=== PATIENT | male | born 1975 | race Caucasian/White ===

== ENCOUNTER → 2018-03-17 11:49 | Outpatient (CLI) | payer OTHER, SELFPAY ==
--- NOTE | 2018-03-17 12:10 | EKG12_ITS ---
Test Reason : PRE OP Blood Pressure : / mmHG Vent. Rate : 062 BPM Atrial Rate : 062 BPM P-R Int : 158 ms QRS Dur : 112 ms QT Int : 406 ms P-R-T Axes : 058 028 026 degrees QTc Int : 412 ms Normal sinus rhythm Normal ECG Confirmed by EDGAR NICHOLS MD ([id number]), production editor ANA MENDOZA ([id number]) on 03/20/2018 9:31:49 AM Referred By: Antonino Yancey Confirmed By:EDGAR NICHOLS MD
[2018-03-17 12:13] LABS: Hemoglobin 14.6 g/dl (13.0-16.5); Mean Corp Hgb Conc 34.8 g/gl (32-36); Mean Corpuscular Hgb 30.2 pg (27.0-32.0); Mean Platelet Vol. 10.7 fl (6.2-12.0); Platelet Count 228 K/mm3 (150-450); RBC Distribution Width SD 40.4 fl (35.1-43.9); Red Blood Count 4.83 M/mm3 (4.6-6.2); White Blood Count 6.2 K/mm3 (4.4-11.0)
[2018-03-17 12:14] LABS: Scan Indicated on CBC? Y/N NO
[2018-03-17 13:00] LABS: Anion Gap 8 (5-15); BUN 18 mg/dL (7-18); BUN/Creat Ratio 15.4 RATIO (10-20); Calcium,Total 8.8 mg/dL (8.5-10.1); Chloride 106 mmol/L (98-107); Creatinine, Serum 1.17 mg/dL (0.70-1.30); EST Glomerular Filtration Rate 73 mL/min (>60); Est Glom Filt Rate - Afr Amer 88 mL/min (>60); Glucose 163 mg/dL (74-106); Potassium 4.1 mmol/L (3.5-5.1); Sodium Level 142 mmol/L (136-145)
--- OUTSIDE RECORDS SUMMARY | 2018-05-21 23:47 | XMS RPT_ITS ---
:1975 Author Organization [facility] Care Team Providers Name Role Phone Antonino Yancey Attending Unavailable Antonino Yancey Referring Unavailable Berto Freitas Primary Care Unavailable PROBLEMS PROBLEMS DATE TYPE CONDITION / CODE ATTENDING STATUS SOURCE 03/17/2018 Unknown Z01.818 - Encounter Antonino Yancey Active [facility]ia for other [facility] preprocedural Hospital examination / Repository Z01.818(ICD-10) 03/17/2018 Unknown Z01.810 - Encounter Antonino Yancey Active Talia for preprocedural [facility] examination / Repository Z01.810(ICD-10) PROCEDURES PROCEDURES No Procedure Records FoundRESULTS RESULTS 12 LEAD ELECTROCARDIOGRAM Observed: 03/20/2018 Status: F Source: TALIA 9:32 AM [facility] REPOSITORY [facility] [address] [place] [address] 12 Lead EKG 03/17/18 1225 MR#: [id number] Acct: [id number] Name: AKIRA FERNÁNDEZ Rep #: [id number] : 1975 43 From: Cash Nichols MD Attending Dr: Antonino Yancey DO Status: REG CLI Ordering Dr: Antonino Yancey DO Date: 03/17/18 Location: LAB Sex: M C Admitted: Test Reason : PRE OP Blood Pressure : / mmHG Vent. Rate : 062 BPM Atrial Rate : 062 BPM P-R Int : 158 ms QRS Dur : 112 ms QT Int : 406 ms P-R-T Axes : 058 028 026 degrees QTc Int : 412 ms Normal sinus rhythm Normal ECG Confirmed by MAGDALENA LOPEZ, CASH ([id number]), editorial specialist ANA MENDOZA ([id number]) on 03/20/2018 9:31:49 AM Referred By: Antonino Yancey Confirmed By:CASH NICHOLS MD 03/20/18 0931 Date Cash Nichols MD CC: Berto Freitas MD; Antonino Yancey DO Signed CBC-COMPLETE BLOOD CNT Collected: 03/17/2018 Status: F Source: TALIA NO DIFF 11:[address] [facility] REPOSITORY TYPE CODE TESTS RESULT OUT OF RANGE REFERENCE UNITS LAB L100.1000 4.4-11.0 K/mm3 Normal WBC 6.2 LAB L100.1200 4.6-6.2 M/mm3 Normal RBC 4.83 LAB L100.1300 13.0-16.5 g/dl Normal HGB 14.6 LAB L100.1400 40-54 % Normal HCT 42.0 LAB L100.1500 80-94 fL Normal MCV 87.0 LAB L100.1600 27.0-32.0 pg Normal MCH 30.2 LAB L100.1700 32-36 g/gl Normal MCHC 34.8 LAB L100.1810 11.6-14.6 % Normal RDW CV 13.0 LAB L100.1820 35.1-43.9 fl Normal RDW SD 40.4 LAB L100.1900 150-450 K/mm3 Normal PLT 228 LAB L100.2000 6.2-12.0 fl Normal MPV 10.7 Performed By: #### L100.0500 #### [facility] [address] [place], [address] BASIC METABOLIC Collected: 03/17/2018 Status: F Source: TALIA PROFILE (BMP) 11:[address] [facility] REPOSITORY TYPE CODE TESTS RESULT OUT OF RANGE REFERENCE UNITS LAB L501.0100 74-106 mg/dL High GLU 163 Result Comment: Fasting Glucose result greater than or equal to 126 mg/dL suggests DIABETES MELLITUS per A.D.A. criteria. Please note revised GLUCOSE reference range effective 2017. LAB L501.1000 7-18 mg/dL Normal BUN 18 LAB L501.1100 0.70-1.30 mg/dL Normal CREAT,SERUM 1.17 Result Comment: The validity of the calculated GFR AND GFRAA in patients over 70 years has not been determined. Clinical correlation is essential. LAB L501.1110 >60 mL/min Normal EST GFR 73 Result Comment: Non- GFR Calc LAB L501.1115 >60 mL/min Normal EST GFR - AA 88 Result Comment: GFR Calc LAB L501.1300 10-20 RATIO Normal BUN/CRE 15.4 LAB L501.2200 8.5-10.1 mg/dL CA Normal 8.8 LAB L501.5300 136-145 mmol/L NA Normal 142 LAB L501.5600 3.5-5.1 mmol/L K Normal 4.1 LAB L501.5900 98-107 mmol/L CL Normal 106 LAB L501.6100 21.0-32.0 mmol/L Normal CO2 28.0 LAB L501.6200 5-15 Normal GAP 8 Performed By: #### L500.2500 #### [facility] [address], [address] ALLERGIES ALLERGIES No Allergies Records FoundENCOUNTERS ENCOUNTERS ADMIT/DISCHARGE ACCOUNT ADMITTING ENCOUNTER LOCATION SOURCE NUMBER CLASS 03/17/2018 [id number] Ambulatory [address] ing:LAB Repository PAYERS PAYERS ENCOUNTER GUARANTOR PAYER SUBSCRIBER SOURCE 03/17/2018 AKIRA Salguero [facility]:Karime VINCENTB: [facility] [address], Number: [id number] [address]: [id number] Repository Date:[id number] BOX ([address] [id number] ABRAM MELÉNDEZ [id number]: 03/17/2018 Secondary NOT GIVENKATHARINE [place] Insurance:SELF PAY [facility] Number: Effective Repository Date:2018-03-17
== END ==
LOC: LAB 11:53
PROVIDERS: Family Provider Family Medicine; PCP Family Medicine; Referring Provider Orthopaedic Surgery; Visit Provider Orthopaedic Surgery
DX: Z01.818 Encounter for other preprocedural examination (principal); I10 Essential (primary) hypertension
CPT/HCPCS: 36415; 80048; 85027; 93005

== ENCOUNTER 2024-10-30 00:23 | Emergency (ER) | payer OTHER, SELFPAY ==
[2024-10-30 00:24] VITALS: BP 185/107; PULSE 89; RESP 18; TEMP 36.8; O2SAT 100; BMI 38.5
--- NOTE | 2024-10-30 00:45 | CT_ITS ---
PROCEDURE: ABDOMEN/PELVIS WITHOUT CONT 10/30/2024 REASON FOR EXAM: LEFT FLANK PAIN TECHNIQUE: Procedure Code: CTABDPEL Modality: CT Procedure: ABDOMEN/PELVIS WITHOUT CONT Noncontrast technique limits evaluation of the abdominal and pelvic viscera. Coronal and Sagittal reconstruction series were provided. One or more dose reduction techniques were used (e.g., Automated exposure control, adjustment of the mA and/or kV according to patient size, use of iterative reconstruction technique). RADIATION DOSE SUMMARY: CTDI Vol 13.71 mGy DLP :713.64 mGycm COMPARISON: none FINDINGS: Left mid ureteric 6 x 3 mm calculus with consequent mild proximal left ureteric and pelvicalyceal system dilatation with perinephric and periureteric fat stranding with enlarged left kidney, possibly post acute obstructive versus inflammatory sequel. Both kidneys showing preserved parenchymal thickness. No renal calculi. No right hydronephrosis. Under distension of the urinary bladder. No pelvic masses. Small fat containing inguinal hernias noted. Average sized liver showing homogenous parenchymal attenuation with fatty changes. No dilated intra or extra-hepatic biliary tracts. Distended gall bladder with no dense calculi. Clear surrounding fat planes. The unenhanced pancreas, adrenal, spleen, and IVC are unremarkable. Vascular atheromatous calcifications The appendix appears unremarkable. No right iliac inflammatory changes. The examined ascending colon, the transverse colon, the descending colon & small bowel loops are unremarkable. The stomach is unremarkable. No free air and no ascites. No obvious pathologically enlarged lymph nodes. Scanned osseous structures show no osseous destruction. Spondylosis. Scanned lung bases are unremarkable. CT/Abdomen/Pelvis without Cont IMPRESSION: Left mid ureteric calculus with consequent mild proximal backpressure changes, perinephric and periureteric fat stranding & enlarged left kidney, possibly post acute obstructive versus inflammatory seque l. Reading [facility]
[2024-10-30] MEDS: 0.9% Normal Saline (1000mL) 1,000 ML 999 ML IV (00:50)
[2024-10-30] MEDS: Ketorolac 30 MG/ML Syringe IV (00:50)
[2024-10-30 00:51] LABS: Hematocrit 34.4 % (40-54); Hemoglobin 11.6 g/dL (13.0-16.5); Immature Granulocytes Count 0.030 X10^3/uL (0.0-0.0); Mean Corp Hgb Conc 33.7 g/dL (32-36); Mean Corpuscular Volume 88.9 fL (80-94); Mean Platelet Vol. 11.3 fl (6.2-12.0); NRBC Flagged by Analyzer 0 % (0-5); Platelet Count 276 K/mm3 (150-450); RBC Distribution Width CV 12.7 % (11.6-14.6); RBC Distribution Width SD 41.1 fl (35.1-43.9); Red Blood Count 3.87 M/mm3 (4.6-6.2); White Blood Count 8.4 K/mm3 (4.4-11.0)
[2024-10-30 00:58] LABS: Mucous, Urine 0 SEEN /hpf (<or=2+)
[2024-10-30 01:02] LABS: Color, Urine Yellow (Yellow); Glucose, Dipstick Normal (Normal); Ketone-Dipstick Negative (Negative); Leukocyte Esterase-Dipstick 25 /ul (Negative); Nitrite-Dipstick Negative (Negative); Occult Blood-Urine 250 /ul (Negative); Protein-Dipstick 100 mg/dl (Negative); Specific Gravity, Urine 1.020 (1.002-1.030); Urine Bilirubin Dipstick Negative (Negative)
[2024-10-30 01:08] LABS: Anion Gap 14 (5-15); BUN 31 mg/dL (4-19); BUN/Creat Ratio 15.3 RATIO (10-20); Calcium,Total 9.3 mg/dL (7.6-11.0); Carbon Dioxide 21.3 mmol/L (21.0-32.0); Chloride 106 mmol/L (98-108); Estimated Creatinine Clearance 65.19 ml/min (50-250); Glucose 186 mg/dL (70-99); Potassium 3.9 mmol/L (3.3-5.1)
--- OUTSIDE RECORDS SUMMARY | 2024-10-30 01:19 | XMS RPT_ITS | CCD ---
Author Organization [facility] Care Team Providers Care Spring Encaser Name Role Phone Erick LOPEZ, Benji Kahn Primary Care Provider [phone] [facility], Keti Unavailable Erick LOPEZ, Benji Kahn Primary Care Provider Erick LOPEZ, Benji Kahn Primary Care Provider [facility], Keti Unavailable Sunitha 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 / BUYER.Lawanda MADRIGAL Unavailable BENJI AMADO Referring Unavailable AMADO, BENJI Kahn Primary Care Unavailable BENJI AMADO Attending Unavailable ERICK, BENJI Kahn Primary Care Unavailable ERICK, BENJI Kahn Referring Unavailable AMADO, BENJI Kahn Primary Care Unavailable AMADO, BENJI Kahn Referring Unavailable AMADO, BENJI Kahn Primary Care Unavailable ERICK, BENJI Kahn Attending Unavailable ERICK, BENJI Kahn Primary Care Unavailable ERICK, BENJI Kahn Primary Care Unavailable SUNITHALAWANDA CAMPOS Referring Unavailable ERICK, BENJI Kahn Primary Care Unavailable SUNITHALAWANDA CAMPOS Referring Unavailable AMADO, BENJI Kahn Primary Care Unavailable LAWANDA GUARDADO Attending Unavailable ERICK, BENJI Kahn Primary Care Unavailable ERICK, BENJI Kahn Attending Unavailable ERICK, BENJI Kahn Primary Care Unavailable Jaden Becker Attending Unavailable Berto Freitas Primary Care Unavailable Allergies Allergy Classification Reported Allergen(s) Allergy Type Date of Onset Reaction(s) Facility (1 source) Seasonal allergy; Translations: [SEASONAL ALLERGIES] Propensity to adverse reactions (disorder) 2 [facility] Repository Medications Current Medications Medication Drug Class(es) Dates Sig (Normalized) Sig (Original) amLODIPine 5 mg oral tablet (20 sources) Dihydropyridine Calcium Channel Eyal Start: 02-06-2024 take 1 tablet by mouth once daily amLODIPine (NORVASC) 5 mg tablet Indications: Essential hypertension Take 1 tablet by mouth once daily. 90 tablet 3 02/06/2024 Active Start: 01-15-2022 End: 02-06-2024 take 1 tablet by mouth once daily amLODIPine (NORVASC) 10 mg tablet Indications: Essential hypertension Take 1 tablet by mouth once daily. 90 tablet 3 06/22/2023 02/06/2024 Discontinued (Dosage adjustment) Start: 03-25-2021 End: 09-07-2021 take 1 tablet by mouth once daily amLODIPine (NORVASC) 10 mg tablet Indications: Essential hypertension Take 1 tablet by mouth once daily. 90 tablet 1 03/25/2021 09/07/2021 Discontinued (Discontinued by Patient) Comment on above: Take 1 tablet by rosalind th once daily. amoxicillin 875 mg / clavulanate 125 mg oral tablet (1 source) Penicillin-class Antibacterial Start: 10-11-19 End: 10-18-19 take 1 tablet by mouth twice daily amoxicillin-clavulanat e potassium (AUGMENTIN) 875-125 mg per tablet Indications: Sinobronchitis Take 1 tablet by mouth two times a day for 7 days. 14 tablet 0 10/11/2023 10/18/2023 Active fluticasone propionate 0.05 mg/actuat metered dose nasal spray (20 sources) Corticosteroid Start: 05-08-19 End: 06-22-19 take 2 spray(s) by mouth once daily fluticasone (FLONASE) 50 mcg/actuation nasal spray Indications: Non-seasonal allergic rhinitis, unspecified trigger Use 2 Sprays in each nostril once daily. Rinse mouth after use. 18.2 mL 11 06/22/2023 Active Comment on above: Use 2 Sprays in each nostril once daily. Rinse mouth after use. 3 ml liraglutide 6 mg/ml pen injector (7 sources) GLP-1 Receptor Agonist Start: 08-08-19 liraglutide (VICTOZA) 0.6 mg/ 0.1 ml subcutaneous pen injector Indications: Controlled type 2 diabetes mellitus with stage 2 chronic kidney disease, without long-term current use of insulin (HCC) Inject 0.6 mg subcutaneously once daily. 3 mL 1 08/07/2024 Active Start: 03-24-2022 End: 03-27-2022 inject 0.6 mg by subcutaneous injection once daily liraglutide (VICTOZA) 0.6 mg/ 0.1 ml subcutaneous pen injector Indications: type 2 diabetes mellitus Inject 0.6 mg daily via pen 3 mL 2 03/24/2022 03/27/2022 Discontinued (Cost of medication) Comment on above: Inject 0.6 mg daily via pen losartan potassium 100 mg oral tablet (20 sources) Angiotensin 2 Receptor Eyal Start: take 1 tablet by mouth once daily losartan (COZAAR) 100 mg tablet Indications: Essential hypertension Take 1 tablet by mouth once daily. 90 tablet 3 02/06/2024 Active Start: 06-22-2023 End: 02-06-2024 take 1 tablet by mouth once daily losartan (COZAAR) 50 mg tablet Take 1 tablet by mouth once daily. 90 tablet 3 06/22/2023 02/06/2024 Discontinued (Dosage adjustment) Start: 02-23-2023 End: 06-22-2023 take 1 tablet by mouth once daily losartan (COZAAR) 25 mg tablet Indications: Essential hypertension Take 1 tablet by mouth once daily. 90 tablet 1 02/23/2023 06/22/2023 Discontinued (Dosage adjustment) Comment on above: Take 1 tablet by rosalind th once daily. 24 hr metFORMIN hydrochloride 500 mg extended release oral tablet (20 sources) Biguanide Start: 01-16-20 End: 09-19-19 take 1 tablet by mouth twice daily before mealtime metFORMIN ER (GLUCOPHAGE XR) 500 mg 24 hr tablet Indications: Uncontrolled type 2 diabetes mellitus with hyperglycemia (HCC) Take 1 tablet by mouth two times a day before meals. 360 tablet 3 09/18/2024 Active Start: 01-05-2021 End: 09-07-2021 take 1 tablet by mouth twice daily before mealtime metFORMIN ER (GLUCOPHAGE XR) 500 mg 24 hr tablet Indications: Uncontrolled type 2 diabetes mellitus with hyperglycemia (HCC) Take 1 tablet by mouth twice daily before meals. 60 tablet 2 01/05/2021 09/07/2021 Discontinued (Discontinued by Patient) Comment on above: Take 1 tablet by rosalind th twice daily before meals. Take 2 tablets by mo [facility] twice daily before meals. pantoprazole 40 mg delayed release oral tablet (20 sources) Proton Pump Inhibitor Start: 03-22-19 End: 06-19-19 take 1 tablet by mouth once daily before breakfast pantoprazole DR (PROTONIX) 40 mg tablet Indications: Gastroesophageal reflux disease, unspecified whether esophagitis present Take 1 tablet by mouth daily before breakfast. Take on empty stomach, 1/2 hr before meal. 90 tablet 3 06/19/2024 Active Start: 12-22-2020 End: 03-22-2022 take 1 tablet by mouth once daily before breakfast pantoprazole DR (PROTONIX) 20 mg tablet Indications: Gastroesophageal reflux disease, unspecified whether esophagitis present Take 1 tablet by mouth daily before breakfast. Take on empty stomach, 1/2 hr before meal. 90 tablet 1 12/22/2020 03/22/2022 Discontinued Comment on above: Take 1 tablet by [facility] daily before breakfast. Take on empty stomach, 1/2 hr before meal. pioglitazone 15 mg oral tablet (20 sources) Peroxisome Proliferator Receptor alpha Agonist, Peroxisome Proliferator Receptor gamma Agonist, Thiazolidinedione Start: 03-29-19 End: 06-19-19 take 1 tablet by mouth once daily pioglitazone (ACTOS) 15 mg tablet Take 1 tablet by mouth once daily. 90 tablet 3 06/19/2024 Active Comment on above: Take 1 tablet by [facility] once daily. Completed/Discontinued Medications Medication Drug Class(es) Dates Sig (Normalized) Sig (Original) albuterol 0.83 mg/ml inhalation solution (14 sources) beta2-Adrenergic Agonist Start: 10-20-2023 End: 10-20-2023 albuterol 2.5 mg /3 mL (0.083 %) 2.5 mg (PROVENTIL) Start: 10-20-2023 End: 10-20-2023 take 1 dose by inhalation once 2.5 mg, INHALATION, ONC E, 1 dose, [facility] 10/20/23 at 1800 Start: 03-09-2023 End: 02-06-2024 take 2 puff(s) by inhalation every four hours as needed for wheezing albuterol HFA (PROVENTIL HFA, VENTOLIN HFA) 90 mcg/actuation inhaler Indications: SOB (shortness of breath) , Wheezing Inhale 2 Puffs as instructed every 4 hours as needed for wheezing/shortness of breath. 1 Each 03/09/2023 02/06/2024 Discontinued (Course of therapy completed) Comment on above: Inhale 2 Puffs as in structed every 4 hours as needed for wheezing/shortness of breath. azithromycin 250 mg oral tablet (3 sources) Macrolide Antimicrobial Start: End: azithromycin (ZITHROMAX Z-TUSHAR) 250 mg tablet Indications: Bronchitis with wheezing , Acute non-recurrent sinusitis, unspecified location Take 2 tablets day one, then, 1 tablet daily until gone. 6 tablet 10/20/2023 10/25/2023 24 hr buPROPion hydrochloride 150 mg extended release oral tablet (12 sources) Aminoketone Start: End: take 1 tablet by mouth once daily buPROPion XL (WELLBUTRIN XL) 150 mg 24 hr tablet Indications: Depressive disorder TAKE 1 TABLET BY MOUTH EVERY DAY 90 tablet 1 07/19/2023 02/06/2024 Discontinued (Course of therapy completed) 0.5 ml dulaglutide 3 mg/ml auto-injector (5 sources) GLP-1 Receptor Agonist Start: End: dulaglutide (TRULICITY) 1.5 mg/0.5 mL pen injector Indications: Controlled type 2 diabetes mellitus with stage 2 chronic kidney disease, without long-term current use of insulin (HCC) Inject 1.5 mg subcutaneously one time a week. 6 mL 2 08/06/2024 08/07/2024 Discontinued (Not on Formulary) Start: 06-25-2022 End: 12-20-2022 inject 0.75 mg by subcutaneous injection every week dulaglutide (TRULICITY) 0.75 mg/0.5 mL pen injector Indications: Uncontrolled type 2 diabetes mellitus with hyperglycemia (HCC) Inject 0.75 mg subcutaneously one time a week. 4 Each 0 06/25/2022 12/20/2022 Discontinued Comment on above: Inject 0.75 mg subcu taneously one time a week. Inhalational Spacing Device (2 sources) Start: 10-20-2023 End: 10-20-2023 Inhalational Spacing Device Indications: Bronchitis with wheezing 1 Device one time only for 1 dose. 1 Each 10/20/2023 10/20/2023 Start: 10-20-2023 End: 10-20-2023 Inhalational Spacing Device Indications: Bronchitis with wheezing 1 Device one time only for 1 dose. 1 Each 10/20/2023 10/20/2023 Active lisinopril 10 mg oral tablet (15 sources) Angiotensin Converting Enzyme Inhibitor Start: 03-02-2022 End: 06-22-2022 take 1 tablet by mouth once daily lisinopril (ZESTRIL) 10 mg tablet Indications: Essential hypertension Take 1 tablet by mouth once daily. 90 tablet 3 06/22/2022 Active Start: 01-16-2022 End: 02-28-2022 take 1 tablet by mouth once daily lisinopril (ZESTRIL, PRINIVIL) 10 mg tablet Indications: Essential hypertension Take 1 tablet by mouth once daily. 30 tablet 2 01/16/2022 02/28/2022 Discontinued Comment on above: Take 1 tablet by rosalind once daily. polyethylene glycol 3350 390314 mg / potassium chloride 2980 mg / sodium bicarbonate 6720 mg / sodium chloride 5840 mg / sodium sulfate 44776 mg powder for oral solution (1 source) Osmotic Laxative Start: 3 End: 3 peg 3350-electrolytes (COLYTE) 240-22.72-6.72 -5.84 gram solution Indications: Screening for colon cancer Take 4,000 mL by mouth one time only for 1 dose. 4000 mL 0 03/22/2022 03/22/2022 Comment on above: Take 4,000 mL by rosalind th one time only for 1 dose. predniSONE 10 mg oral tablet (5 sources) Start: 4 End: 4 take 4 tablets by mouth once daily, then take 3 tablets by mouth once daily, then take 2 tablets by mouth once daily, then take 1 tablet by mouth once daily predniSONE (DELTASONE) 10 mg tablet Indications: Bronchitis with wheezing , Acute non-recurrent sinusitis, unspecified location TAKE BY MOUTH 4 TABLETS DAILY FOR 2 DAYS, THEN 3 TABLETS DAILY FOR 2 DAYS, THEN 2 TABLETS DAILY FOR 2 DAYS, THEN 1 TABLET DAILY FOR 2 DAYS. 20 tablet 10/20/2023 02/06/2024 Discontinued (Course of therapy completed) Start: 10-11-2023 End: 10-16-2023 take 2 tablets by mouth once daily predniSONE (DELTASONE) 20 mg tablet Indications: Sinobronchitis Take 2 tablets by mouth once daily for 5 days. 10 tablet 0 10/11/2023 10/16/2023 Active tirzepatide (MOUNJARO) 2.5 mg/0.5 mL pen injector (7 sources) Start: 12-28-2021 End: 03-22-2022 inject 2.5 mg by subcutaneous injection every week tirzepatide (MOUNJARO) 2.5 mg/0.5 mL pen injector Inject 2.5 mg subcutaneously one time a week. 2 mL 1 12/28/2021 03/22/2022 Discontinued Start: 12-28-2021 inject 2.5 mg by sub cutaneous injection every week tirzepatide (MOUNJARO) 2.5 mg/0.5 mL pen injector Inject 2.5 mg subcutaneously one time a week. 2 mL 1 12/28/2021 Active Comment on above: Inject 2.5 mg subcut aneously one time a week. tirzepatide (MOUNJARO) 2.5 mg/0.5 mL pen injector (2 sources) Start: inject 2.5 mg by subcutaneous injection every week tirzepatide (MOUNJARO) 2.5 mg/0.5 mL pen injector Indications: Uncontrolled type 2 diabetes mellitus with hyperglycemia (HCC) Inject 2.5 mg subcutaneously one time a week. 2 mL 5 03/22/2022 Active Comment on above: Inject 2.5 mg subcut aneously one time a week. Problems Active Problems Problem Classification Problem Date Documented Date Episodic/Chronic Acute and unspecified renal failure (3 sources) Acute renal failure syndrome; Translations: [Acute kidney failure, unspecified] Onset: 10-08-2024 09-18-2024 Episodic Administrative/socia l admission (5 sources) Patient encounter status; Translations: [Encounter for other administrative examinations] Episodic Anal and rectal conditions (1 source) Hyperplastic polyp of large intestine; Translations: [Rectal polyp] Episodic Chronic kidney disease (14 sources) Chronic kidney disease stage 2; Translations: [Chronic kidney disease, stage 2 (mild)] Onset: 12-27-2022 Resolved: 02-06-2024 02-06-2024 Chronic Diabetes mellitus with complications (20 sources) Type II diabetes mellitus uncontrolled; Translations: [Type 2 diabetes mellitus with hyperglycemia] Onset: 12-22-2020 Resolved: 06-22-2023 12-22-2020 Chronic Diabetes mellitus without complication (2 sources) Type 2 diabetes mellitus 08-06-2024 Chronic Disorders of lipid metabolism (20 sources) Mixed hyperlipidemia; Translations: [Mixed hyperlipidemia] Onset: 05-07-2021 05-07-2021 Chronic Esophageal disorders (20 sources) Gastroesophageal reflux disease; Translations: [Gastro-esophageal reflux disease without esophagitis] Onset: 12-22-2020 12-22-2020 Chronic Essential hypertension (20 sources) Essential hypertension; Translations: [Essential (primary) hypertension] Onset: 07-03-2020 07-03-2020 Chronic Fluid and electrolyte disorders (2 sources) Dehydration; Translations: [Dehydration] Onset: 09-18-2024 09-18-2024 Episodic Immunizations and screening for infectious disease (1 source) Vaccination needed; Translations: [Encounter for immunization] Episodic Malaise and fatigue (1 source) Fatigue; Translations: [Other fatigue] 12-20-2022 Episodic Mood disorders (3 sources) Depressive disorder; Translations: [Depressive disorder] 06-25-2023 Chronic Other and unspecified benign neoplasm (1 source) Hyperplastic polyp of intestine; Translations: [Polyp of colon] Episodic Other connective tissue disease (2 sources) Cyst of tendon sheath; Translations: [Other specified disorders of synovium and tendon, unspecified site] 12-20-2022 Episodic Other diseases of veins and lymphatics (1 source) Disorder of vein of lower extremity; Translations: [Venous insufficiency (chronic) (peripheral)] 08-06-2024 Episodic Other diseases of veins and lymphatics (1 source) Venous insufficiency (chronic) (peripheral); Translations: [Stasis dermatitis of both legs] Onset: 08-06-2024 Episodic Other injuries and conditions due to external causes (2 sources) Injury of ribs; Translations: [Unspecified injury of thorax, initial encounter] 07-06-2023 Episodic Other lower respiratory disease (1 source) Chronic cough; Translations: [Chronic cough] 12-20-2022 Episodic Other lower respiratory disease (1 source) Dyspnea; Translations: [Shortness of breath] 03-09-2023 Episodic Other lower respiratory disease (1 source) Wheezing; Translations: [Wheezing] 03-09-2023 Episodic Other non-traumatic joint disorders (1 source) Pain in elbow; Translations: [Pain in left elbow] 12-20-2022 Episodic Other nutritional; endocrine; and metabolic disorders (10 sources) Body mass index 40+ - severely obese; Translations: [Obesity, Class III, BMI 40-49.9 (morbid obesity)] Onset: 08-06-2024 08-06-2024 Chronic Other upper respiratory disease (20 sources) Allergic rhinitis; Translations: [Other allergic rhinitis] Onset: 04-06-2019 04-06-2019 Chronic Other upper respiratory disease (1 source) Change in voice; Translations: [Unspecified voice and resonance disorder] Episodic Other upper respiratory disease (1 source) Pain in throat; Translations: [Pain in throat] Episodic Other upper respiratory infections (1 source) Chronic sinusitis; Translations: [Chronic sinusitis, unspecified] 10-11-2023 Chronic Other upper respiratory infections (1 source) Acute sinusitis; Translations: [Acute sinusitis, unspecified] 10-20-2023 Episodic Residual codes; unclassified (1 source) Edema of lower extremity; Translations: [Localized edema] 12-20-2022 Episodic Residual codes; unclassified (2 sources) Reduced libido; Translations: [Decreased libido] 12-20-2022 Episodic Screening and history of mental health and substance abuse codes (2 sources) Encounter for screening for depression; Translations: [Encounter for screening examination for other mental health and behavioral disorders] Onset: 08-06-2024 Episodic Unclassified (1 source) Obesity, Class III, BMI 40-49.9 (morbid obesity) ([facility]); Translations: [Obesity, Class III, BMI 40-49.9 (morbid obesity) ([facility])] Onset: 08-06-2024 Past or Other Problems Problem Classification Problem Date Documented Da te Episodic/Chronic Chronic obstructive pulmonary disease and bronchiectasis (3 sources) Bronchitis co-occurrent with wheeze; Translations: [Bronchitis, not specified as acute or chronic] Onset: 10-20-2023 10-20-2023 Episodic Genitourinary symptoms and ill-defined conditions (20 sources) Microscopic hematuria; Translations: [Other microscopic hematuria] Onset: 12-22-2020 12-22-2020 Episodic Other nervous system disorders (20 sources) Loss of sense of smell; Translations: [Anosmia] Onset: 07-02-2020 12-22-2020 Episodic Residual codes; unclassified (12 sources) Bilateral lower limb edema; Translations: [Localized edema] Onset: 02-06-2024 02-06-2024 Episodic Results Test Name Value Interpretation Reference Range Facility CBC W/Diff, Automatedon 09-0 Absolute Lymph 3.20 X10 3/uL Normal 0.83-4.51 [facility] Comment on above: Performed By: #### L 100.0100 #### [facility] [address] [place], [address] Absolute Neut 4.3 X10 3/uL Normal 2.0-7.7 [facility] Comment on above: Performed By: #### L 100.0100 #### [facility] [address] [place], [address] Basophils/100 WBC (Bld) 0.7 % Normal 0-1 [facility] Comment on above: Performed By: #### L 100.0100 #### [facility] [address], [address] Eosinophils/100 WBC (Bld) 3.0 % Normal 0-5 [facility] Comment on above: Performed By: #### L 100.0100 #### [facility] [address] [place], [address] Erythrocyte distribution width (RBC) [Ratio] 12.7 % Normal 11.6-14.6 [facility] Comment on above: Performed By: #### L 100.0100 #### [facility] [address] [place], [address] Hematocrit (Bld) [Volume fraction] 34.4 % Low 40-54 [facility] Comment on above: Performed By: #### L 100.0100 #### [facility] [address] [place], [address] Hemoglobin (Bld) [Mass/Vol] 11.6 g/dL Low 13.0-16.5 [facility] Comment on above: Performed By: #### L 100.0100 #### [facility] [address] [place], [address] IG% 0.400 Normal 0.0-0.9 [facility] Comment on above: Result Comment: IG% - Immature Granulocytes (promyelocytes, myelocytes and metamyelocytes) > 1% indicates that a LEFT SHIFT is Present. Performed By: #### L 100.0100 #### [facility] [address] [place], [address] Lymphocytes/100 WBC (Bld) 38.0 % Normal 19-41 [facility] Comment on above: Performed By: #### L 100.0100 #### [facility] [address] [place], [address] MCH (RBC) [Entitic mass] 30.0 pg Normal 27.0-32.0 [facility] Comment on above: Performed By: #### L 100.0100 #### [facility] [address] [place], [address] MCHC (RBC) [Mass/Vol] 33.7 g/dL Normal 32-36 [facility] Comment on above: Performed By: #### L 100.0100 #### [facility] [address] [place], [address] MCV (RBC) [Entitic vol] 88.9 fL Normal 80-94 [facility] Comment on above: Performed By: #### L 100.0100 #### [facility] [address] [place], [address] Monocytes/100 WBC (Bld) 7.2 % Normal 0-10 [facility] Comment on above: Performed By: #### L 100.0100 #### [facility] [address] [place], [address] Neutrophils/100 WBC (Bld) 50.7 % Normal 47-70 [facility] Comment on above: Performed By: #### L 100.0100 #### [facility] [address] [place], [address] Nucleated RBC (Bld) [#/Vol] 0 10*3/uL Normal 0-5 [facility] Comment on above: Performed By: #### L 100.0100 #### [facility] [address] [place], [address] Platelet mean volume (Bld) [Entitic vol] 11.3 fL Normal 6.2-12.0 [facility] Comment on above: Performed By: #### L 100.0100 #### [facility] [address] [place], [address] Platelets (Bld) [#/Vol] 276 10*3/uL Normal 150-450 [facility] Comment on above: Performed By: #### L 100.0100 #### [facility] [address] [place], [address] RBC (Bld) [#/Vol] 3.87 10*6/uL Low 4.6-6.2 [facility] Comment on above: Performed By: #### L 100.0100 #### [facility] [address] [place], [address] RDW SD 41.1 fl Normal 35.1-43.9 [facility] Comment on above: Performed By: #### L 100.0100 #### [facility] [address] [place], [address] WBC (Bld) [#/Vol] 8.4 10*3/uL Normal 4.4-11.0 [facility] Comment on above: Performed By: #### L 100.0100 #### [facility] [address] [place], [address] Urinalysis, Completeon 10-30 BILIRUBIN URINE Negative Normal Negative [facility] Comment on above: Order Comment: CLEAN CATCH Performed By: #### L 400.0001 #### [facility] [address] [place], [address] Clarity (U) Cloudy Normal Clear [facility] Comment on above: Order Comment: CLEAN CATCH Performed By: #### L 400.0001 #### [facility] [address], [address] Color (U) Yellow Normal Yellow [facility] Comment on above: Order Comment: CLEAN CATCH Performed By: #### L 400.0001 #### [facility] [address] [place], [address] GLUCOSE, UR Normal Normal Normal [facility] Comment on above: Order Comment: CLEAN CATCH Performed By: #### L 400.0001 #### [facility] [address] [place], [address] KETONE UR Negative Normal Negative [facility] Comment on above: Order Comment: CLEAN CATCH Performed By: #### L 400.0001 #### [facility] [address] [place], [address] LEUK ESTERASE 25 /ul Abnormal Negative [facility] Comment on above: Order Comment: CLEAN CATCH Performed By: #### L 400.0001 #### [facility] [address] [place], [address] Nitrite Ql (U) Negative Normal Negative [facility] Comment on above: Order Comment: CLEAN CATCH Performed By: #### L 400.0001 #### [facility] Laboratory [address] [place], [address] OCCULT BLOOD-UR 250 /ul Abnormal Negative [facility] Comment on above: Order Comment: CLEAN CATCH Performed By: #### L 400.0001 #### [facility] Laboratory [address] [place], [address] pH UR 6.0 Normal 5.0 - 8.0 [facility] Comment on above: Order Comment: CLEAN CATCH Performed By: #### L 400.0001 #### [facility] Laboratory [address] [place], [address] PROT DIPSTX 100 mg/dl Abnormal Negative [facility] Comment on above: Order Comment: CLEAN CATCH Performed By: #### L 400.0001 #### [facility] Laboratory [address] [place], [address] SP.GR. DIPSTX 1.020 Normal 1.002-1.030 [facility] Comment on above: Order Comment: CLEAN CATCH Performed By: #### L 400.0001 #### [facility] Laboratory [address] [place], [address] UROBILI Normal Normal Normal [facility] Comment on above: Order Comment: CLEAN CATCH Performed By: #### L 400.0001 #### [facility] Laboratory [address] [place], [address] Basic metabolic 2000 panelon 10-08-2024 Anion gap [Moles/Vol] 13 mmol/L Normal 8-15 [facility] Comment on above: Order Comment: Speci men Type: BLOOD SPECIMENOrdering Facility: [facility] Address: [address] [place] [address] Performed By: #### 2 4321-2 ####[facility] LABCLIA [id number] [address] [address] [place] Calcium [Mass/Vol] 9.6 mg/dL Normal 8.5-10.2 [facility] Comment on above: Order Comment: Speci men Type: BLOOD SPECIMENOrdering Facility: [facility] Address: [address] [place] [address] Performed By: #### 2 4321-2 ####[facility] LABCLIA [id number] [place] [id number] [place] Chloride [Moles/Vol] 104 mmol/L Normal 98-107 [facility] Comment on above: Order Comment: Speci men Type: BLOOD SPECIMENOrdering Facility: [facility] Address: [address] [place] [address] Performed By: #### 2 4321-2 ####[facility] LABCLIA [id number] [place] [address] [place] CO2 [Moles/Vol] 21 mmol/L Low 22-30 [facility] Comment on above: Order Comment: Speci men Type: BLOOD SPECIMENOrdering Facility: [facility] Address: [address] [place] [address] Performed By: #### 2 4321-2 ####[facility] LABCLIA [id number] [place] [id number] [place] Creatinine [Mass/Vol] 1.64 mg/dL High 0.73-1.22 [facility] Comment on above: Order Comment: Speci men Type: BLOOD SPECIMENOrdering Facility: [facility] Address: [address] [place] [address] Performed By: #### 2 4321-2 ####[facility] LABCLIA [id number] [place] [id number] [place] eGFRcr SerPlBld CKD-EPI 2020 52 mL/min/1.73m??? Low >=60 [facility] Comment on above: Order Comment: Speci men Type: BLOOD SPECIMENOrdering Facility: [facility] Address: [address] [place] [address] Result Comment: Brigette mated Glomerular Filtration Rate (eGFR) is calculated using the 2020 CKD-EPI creatinine equation. This equation utilizes serum creatinine, sex, and age as parameters. The creatinine assay has traceable calibration to isotope dilution-mass spectrometry. Refer to KDIGO guidelines for clinical interpretation. In patients with unstable renal function, e.g. those with acute kidney injury, the eGFR may not accurately reflect actual GFR. Performed By: #### 2 4321-2 ####[facility] LABCLIA [id number] [address] [address] [place] Glucose [Mass/Vol] 148 mg/dL High 74-99 [facility] Comment on above: Order Comment: Speci men Type: BLOOD SPECIMENOrdering Facility: [facility] Address: [address] [place] [address] Result Comment: The [place] Diabetes Association (ADA) provides guidance for cutoff values for fasting glucose and random glucose. The ADA defines fasting as no caloric intake for at least 8 hours. Fasting plasma glucose results between 100 to 125 mg/dL indicate increased risk for diabetes (prediabetes). Fasting plasma glucose results greater than or equal to 126 mg/dL meet the criteria for diagnosis of diabetes. In the absence of unequivocal hyperglycemia, results should be confirmed by repeat testing. In a patient with classic symptoms of hyperglycemia or hyperglycemic crisis, random plasma glucose results greater than or equal to 200 mg/dL meet the criteria for diagnosis of diabetes. Reference: Standards of Medical Care in Diabetes 2016, [place] Diabetes Association. Diabetes Care. 2016.39(Suppl 1). Performed By: #### 2 4321-2 ####[facility] LABCLIA [id number] [facility] [address] [address] [place] Potassium [Moles/Vol] 4.3 mmol/L Normal 3.7-5.1 [facility] Comment on above: Order Comment: Speci men Type: BLOOD SPECIMENOrdering Facility: [facility] Address: [address] [place] [id number] Performed By: #### 2 4321-2 ####[facility] LABCLIA [id number] [facility] [address] [address] [place] Sodium [Moles/Vol] 138 mmol/L Normal 136-144 [facility] Comment on above: Order Comment: Speci men Type: BLOOD SPECIMENOrdering Facility: [facility] Address: [address] [place] [address] Performed By: #### 2 4321-2 ####[facility] LABCLIA [id number] [place] [address] [place] Urea nitrogen [Mass/Vol] 25 mg/dL High 9-24 [facility] Comment on above: Order Comment: Speci men Type: BLOOD SPECIMENOrdering Facility: [facility] Address: [address] [place] [address] Performed By: #### 2 4321-2 ####[facility] LABCLIA [id number] [place] [id number] [place] Basic metabolic 2000 panelOr dered By: Blank Horner on 09-18-2024 Anion gap [Moles/Vol] 17 mmol/L High 8 - 15 mmol/L [facility] Calcium [Mass/Vol] 10 mg/dL 8.5 - 10. 2 mg/dL [facility] Chloride [Moles/Vol] 104 mmol/L 98 - 10 7 mmol/L [facility] CO2 [Moles/Vol] 20 mmol/L Low 22 - 30 mmol/L [facility] Creatinine [Mass/Vol] 1.96 mg/dL High 0.73 - 1.22 mg/dL [facility] GFR/1.73 sq M.predicted among non-blacks MDRD (S/P/Bld) [Vol rate/Area] 42 mL/min/{1.73_m2} Low - PINF [facility] Comment on above: Estimated Glomerular Filtration Rate (eGFR) is calculated using the 2020 CKD-EPI creatinine equation. This equation utilizes serum creatinine, sex, and age as parameters. The creatinine assay has traceable calibration to isotope dilution-mass spectrometry. Refer to KDIGO guidelines for clinical interpretation. In patients with unstable renal function, e.g. those with acute kidney injury, the eGFR may not accurately reflect actual GFR. Glucose [Mass/Vol] 253 mg/dL High 74 - 99 mg/dL [facility] Comment on above: The [place] Diabete s Association (ADA) provides guidance for cutoff values for fasting glucose and random glucose. The ADA defines fasting as no caloric intake for at least 8 hours. Fasting plasma glucose results between 100 to 125 mg/dL indicate increased risk for diabetes (prediabetes). Fasting plasma glucose results greater than or equal to 126 mg/dL meet the criteria for diagnosis of diabetes. In the absence of unequivocal hyperglycemia, results should be confirmed by repeat testing. In a patient with classic symptoms of hyperglycemia or hyperglycemic crisis, random plasma glucose results greater than or equal to 200 mg/dL meet the criteria for diagnosis of diabetes. Reference: Standards of Medical Care in Diabetes 2016, [place] Diabetes Association. Diabetes Care. 2016.39(Suppl 1). Interpretation and review of laboratory results Abnormal [facility] Potassium [Moles/Vol] 5.3 mmol/L High 3.7 - 5.1 mmol/L [facility] Sodium [Moles/Vol] 141 mmol/L 136 - 144 mmol/L [facility] Urea nitrogen [Mass/Vol] 37 mg/dL High 9 - 24 mg/dL [facility] Basic metabolic 2000 panelon 09-18-2024 Anion gap [Moles/Vol] 17 mmol/L High 8-15 [facility] Comment on above: Order Comment: Speci men Type: BLOOD SPECIMENOrdering Facility: [facility] Address: [address] [place] [id number] Performed By: #### 2 4321-2 ####[facility] [id number] [place] [address] [place] Calcium [Mass/Vol] 10.0 mg/dL Normal 8.5-10.2 [facility] Comment on above: Order Comment: Speci men Type: BLOOD SPECIMENOrdering Facility: [facility] Address: [address] [place] [id number] Performed By: #### 2 4321-2 ####[facility] [id number] [place] [address] [place] Chloride [Moles/Vol] 104 mmol/L Normal 98-107 [facility] Comment on above: Order Comment: Speci men Type: BLOOD SPECIMENOrdering Facility: [facility] Address: [address] [place] [id number] Performed By: #### 2 4321-2 ####[facility] [id number] [place] [address] [place] CO2 [Moles/Vol] 20 mmol/L Low 22-30 [facility] Comment on above: Order Comment: Speci men Type: BLOOD SPECIMENOrdering Facility: [facility] Address: [address] [place] [address] Performed By: #### 2 4321-2 ####[facility] DORALNCLIA [id number] [place] [address] [place] Creatinine [Mass/Vol] 1.96 mg/dL High 0.73-1.22 [facility] Comment on above: Order Comment: Speci men Type: BLOOD SPECIMENOrdering Facility: [facility] Address: [address] [place] [address] Performed By: #### 2 4321-2 ####[facility] [id number] [place] [address] [place] eGFRcr SerPlBld CKD-EPI 2020 42 mL/min/1.73m??? Low >=60 [facility] Comment on above: Order Comment: Speci men Type: BLOOD SPECIMENOrdering Facility: [facility] Address: [address] [place] [address] Result Comment: Brigette mated Glomerular Filtration Rate (eGFR) is calculated using the 2020 CKD-EPI creatinine equation. This equation utilizes serum creatinine, sex, and age as parameters. The creatinine assay has traceable calibration to isotope dilution-mass spectrometry. Refer to KDIGO guidelines for clinical interpretation. In patients with unstable renal function, e.g. those with acute kidney injury, the eGFR may not accurately reflect actual GFR. Performed By: #### 2 4321-2 ####[facility] [id number] [place] [address] [place] Glucose [Mass/Vol] 253 mg/dL High 74-99 [facility] Comment on above: Order Comment: Speci men Type: BLOOD SPECIMENOrdering Facility: [facility] Address: [address] [place] [address] Result Comment: The [place] Diabetes Association (ADA) provides guidance for cutoff values for fasting glucose and random glucose. The ADA defines fasting as no caloric intake for at least 8 hours. Fasting plasma glucose results between 100 to 125 mg/dL indicate increased risk for diabetes (prediabetes). Fasting plasma glucose results greater than or equal to 126 mg/dL meet the criteria for diagnosis of diabetes. In the absence of unequivocal hyperglycemia, results should be confirmed by repeat testing. In a patient with classic symptoms of hyperglycemia or hyperglycemic crisis, random plasma glucose results greater than or equal to 200 mg/dL meet the criteria for diagnosis of diabetes. Reference: Standards of Medical Care in Diabetes 2016, [place] Diabetes Association. Diabetes Care. 2016.39(Suppl 1). Performed By: #### 2 4321-2 ####[facility] [id number] [place] [address] [place] Potassium [Moles/Vol] 5.3 mmol/L High 3.7-5.1 [facility] Comment on above: Order Comment: Yuei men Type: BLOOD SPECIMENOrdering Facility: [facility] Address: [address] [place] [address] Performed By: #### 2 4321-2 ####[facility] SHAWLIA [id number] [place] [address] [place] Sodium [Moles/Vol] 141 mmol/L Normal 136-144 [facility] Comment on above: Order Comment: Speci men Type: BLOOD SPECIMENOrdering Facility: [facility] Address: [address] [place] [address] Performed By: #### 2 4321-2 ####[facility] SHAWLIA [id number] [place] [address] [place] Urea nitrogen [Mass/Vol] 37 mg/dL High 9-24 [facility] Comment on above: Order Comment: Speci men Type: BLOOD SPECIMENOrdering Facility: [facility] Address: [address] [place] [address] Performed By: #### 2 4321-2 ####[facility] RAI [id number] [address] [facility] CNOVon 09-18-2024 CNOV Office Visit (INTMWS ) ROBIN FERNÁNDEZ ([id number]) 1975 M Date Time Provider Department 09/18/24 9:20 AM LAWANDA GUARDADO INTMWS During your visit today, we recorded the following information about you: Temperature Pulse Respiration Blood pressure 97.5 degrees 80/minute 14/minute 146/102 Weight 129.4 kg Lawanda Guardado, 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 / 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 ORDER PICKER 09/18/2024 10:34 AM Signed CC: Patient presents with: Hospital F/U: [place]: ARF (acute renal failure) ([facility]) Acute renal failure HPI Recording using ambient FilmBreak software for draft documentation of the visit was discussed with the patient/authorized senior patient account representative; all questions welcomed and answered. Patient/authorized senior patient account representative agreed to proceed Robin Fernández is a 49-year-old male with a history of CKD, HTN, and DM, presenting for follow-up after a recent hospitalization for acute renal failure secondary to severe dehydration. Robin was hiking on the [place] with his son when he encountered a 10-mile stretch with no water sources and temperatures reaching 101?F. He reports being exposed to the sun continuously and experiencing a 2,000-foot elevation gain. He was not prepared for the conditions and became severely dehydrated, leading to significant diarrhea, nausea, and emesis. He hitchhiked to a hotel, where he was ill for 2 days before presenting to a hospital. He was found to have a creatinine level greater than 15 and was transferred to a larger hospital in [place] for acute care. He was treated with a bicarbonate drip and later transitioned to lactated Ringer's solution. His creatinine levels slowly improved, and he was discharged on 09/18 with a creatinine level of 9.35. During his hospitalization, his medications, including losartan, metformin, Victoza, and Actos, were held. He was advised to continue holding these medications until today's follow-up. He has not resumed any of his medications, except for one taken last night for heartburn, due to the labels on his medication bags becoming illegible. He denies any further episodes of diarrhea and reports feeling perfect and back to his normal state. He has been hydrating with water but has not been using electrolyte solutions. He does not monitor his blood glucose levels or blood pressure at home. Review of Systems Constitutional: Negative for chills, diaphoresis, fatigue and fever. Respiratory: Negative for shortness of breath. Cardiovascular: Negative for chest pain, palpitations and leg swelling. Neurological: Negative for dizziness, syncope, weakness, light-headedness and headaches. PAST MEDICAL HISTORY Diagnosis Date Anosmia 07/02/2020 COVID-19 02/08/2020 Essential hypertension 07/03/2020 Gastroesophageal reflux disease 12/22/2020 Hypertension 2010 Mixed hyperlipidemia 05/07/2021 Non-seasonal allergic rhinitis 04/06/2019 Sleep apnea Uncontrolled type 2 diabetes mellitus with hyperglycemia (HCC) 12/22/2020 PAST SURGICAL HISTORY Procedure Laterality Date CARPAL TUNNEL Bilateral 2007 COLONOSCOPY SCREENING 05/17/2022 hyperplastic polyps x 2 ROTATOR CUFF REPAIR Left 2019 Dr. Yancey VASECTOMY UNI/BI SPX W/POSTOP SEMEN EXAMS 2007 ALLERGIES Environmental [Seasonal Allergies] MEDICATIONS liraglutide (VICTOZA) 0.6 mg/ 0.1 ml subcutaneous pen injector Inject 0.6 mg subcutaneously once daily. metFORMIN ER (GLUCOPHAGE XR) 500 mg 24 hr tablet Take 2 tablets by mouth two times a day before meals. pantoprazole DR (PROTONIX) 40 mg tablet Take 1 tablet by mouth daily before breakfast. Take on empty stomach, 1/2 hr before meal. pioglitazone (ACTOS) 15 mg tablet Take 1 tablet by mouth once daily. amLODIPine (NORVASC) 5 mg tablet Take 1 tablet by mouth once daily. losartan (COZAAR) 100 mg tablet Take 1 tablet by mouth once daily. fluticasone (FLONASE) 50 mcg/actuation nasal spray Use 2 Sprays in each nostril once daily. Rinse mouth after use. FAMILY HISTORY Problem Relation Age of Onset Hypertension Mother Blood Disease Mother leukemia Hypertension Father Coronary Artery Disease Father stented Ischemic Heart Disease Father CABG Arrythmias Brother Heart Brother 47 Valve replacement Diabetes Maternal Grandmother Coronary Artery Disease Maternal Grandmother Diabetes Maternal Grandfather Coronary Artery Disease Maternal Grandfather cabg Diabetes Paternal Grandfather Coronary Artery Disease Paternal Grandfather cabg Social History Tobacco Use Smoking status: Never Smokeless tobacco: Never Vaping Use Vaping status: Never Used Substance Use Topics Alcohol use: Yes Drug use: Never BP 146/102 Pulse 80 Temp 36.4 ?C (97.5 ?F) (Temporal) Resp 14 Wt 129.4 kg (285 lb 4.4 oz) SpO2 98% BMI 37.64 kg/m? Physical Exam Vitals reviewed. Constitutional: Appearance: Normal appearance. HENT: Mouth/Throat: Mouth: Mucous membr (more content not included)... Normal [facility] 08-07-2024 [facility] Telephone (INTMWS) ROBIN FERNÁNDEZ ([id number]) 1975 M Date Time Provider Department 08/07/24 BENJI AMADO INTWS During your visit today, we recorded the following information about you: Marcella Finley LPN 08/07/2024 3:58 PM Signed Pcp complete the provider's part of the forms pt brought in to the appt 07/06/24. Pt notified. He will pick this up in medical records. Copied for scanned records. Allergies As of Date: 08/07/2024 Noted Allergy Reaction Environmental (SEASONAL ALLERGIES)05/07/2021 16 - Unknown Date Reviewed: 08/06/2024 Reviewed by: Jaxson, Leena E, GLUER MACHINE SETUP OPERATOR - Fully Assessed Reason for Visit: Forms [913] Prescriptions as of 08/07/2024 - liraglutide (VICTOZA) 0.6 mg/ 0.1 ml subcutaneous pen injector Inject 0.6 mg subcutaneously once daily. - metFORMIN ER (GLUCOPHAGE XR) 500 mg 24 hr tablet Take 2 tablets by mouth two times a day before meals. - pantoprazole DR (PROTONIX) 40 mg tablet Take 1 tablet by mouth daily before breakfast. Take on empty stomach, 1/2 hr before meal. - pioglitazone (ACTOS) 15 mg tablet Take 1 tablet by mouth once daily. - amLODIPine (NORVASC) 5 mg tablet Take 1 tablet by mouth once daily. - losartan (COZAAR) 100 mg tablet Take 1 tablet by mouth once daily. - fluticasone (FLONASE) 50 mcg/actuation nasal spray Use 2 Sprays in each nostril once daily. Rinse mouth after use. Problem List As Of Date 08/07/2024 Noted Resolved Non-seasonal allergic rhinitis [J30.89] 04/06/2019 Essential hypertension [I10] 07/03/2020 Gastroesophageal reflux disease [K21.9] 12/22/2020 Uncontrolled type 2 diabetes mellitus with hype*12/22/2020 06/22/2023 Other microscopic hematuria [R31.29] 12/22/2020 Anosmia [R43.0] 07/02/2020 Mixed hyperlipidemia [E78.2] 05/07/2021 Controlled type 2 diabetes mellitus with stage *02/06/2024 Chronic kidney disease, stage 2, mildly decreas*02/06/2024 02/06/2024 Bilateral leg edema [R60.0] 02/06/2024 Obesity, Class III, BMI >= 40 [E66.813] 08/06/2024 Encounter Status:Closed by MARCELLA FINLEY on 08/07/24 Héctor [facility] [place] 08-06-2024 CNOV Office Visit (INTMWS ) ROBIN FERNÁNDEZ ([id number]) 1975 M Date Time Provider Department 08/06/24 12:40 PM BENJI AMADO INTMWS During your visit today, we recorded the following information about you: Pulse Blood pressure Weight 71/minute 128/85 142 kg Benji Amado MD 08/06/2024 4:56 PM Signed This note was created using Aradigmriter. Subjective Robin Fernández is a 49 year old male. He felt well and had no concerns. His hypertension was controlled. He was not checking his glucose. We reviewed his labs. He needed a scouting form completed as before. He was going on a prolonged back packing trip and was thinking of leaving his medication behind to save space. I advised against this. At least he should take his tablets. Review of Systems Constitutional: Negative. Respiratory: Negative. Cardiovascular: Negative. Genitourinary: Negative. Skin: Positive for color change (skin of legs, not pruritic). Neurological: Negative. ACTIVE PROBLEM LIST Non-Seasonal Allergic Rhinitis Essential Hypertension Gastroesophageal Reflux Disease Other Microscopic Hematuria Anosmia Mixed Hyperlipidemia Controlled Type 2 Diabetes Mellitus With Stage 2 Chronic Kidney Disease, Without Long-Term Current Use of Insulin (Hcc) Bilateral Leg Edema Social History Tobacco Use Smoking status: Never Smokeless tobacco: Never Vaping Use Vaping status: Never Used Substance Use Topics Alcohol use: Yes Drug use: Never Current Outpatient Medications Medication Sig metFORMIN ER (GLUCOPHAGE XR) 500 mg 24 hr tablet Take 2 tablets by mouth two times a day before meals. pantoprazole DR (PROTONIX) 40 mg tablet Take 1 tablet by mouth daily before breakfast. Take on empty stomach, 1/2 hr before meal. pioglitazone (ACTOS) 15 mg tablet Take 1 tablet by mouth once daily. amLODIPine (NORVASC) 5 mg tablet Take 1 tablet by mouth once daily. losartan (COZAAR) 100 mg tablet Take 1 tablet by mouth once daily. fluticasone (FLONASE) 50 mcg/actuation nasal spray Use 2 Sprays in each nostril once daily. Rinse mouth after use. No current facility-administered medications for this visit. Objective BP 128/85 Pulse 71 Wt (!) 142 kg (313 lb 0.9 oz) BMI 41.30 kg/m? Physical Exam Constitutional: General: He is not in acute distress. Appearance: He is not ill-appearing. Cardiovascular: Rate and Rhythm: Normal rate and regular rhythm. Heart sounds: No murmur heard. No gallop. Pulmonary: Breath sounds: Normal breath sounds. Musculoskeletal: Right lower le+ Pitting Edema present. Left lower le+ Pitting Edema present. Skin: Comments: Stasis faint pigmentation of both lower extremities. Neurological: Mental Status: He is alert. Latest Ref Rng 07/30/2024 WBC 3.70 - 11.00 k/uL 8.21 RBC 4.20 - 6.00 m/uL 4.36 Hemoglobin 13.0 - 17.0 g/dL 13.1 Hematocrit 39.0 - 51.0 % 37.7 (L) MCV 80.0 - 100.0 fL 86.5 MCH 26.0 - 34.0 pg 30.0 MCHC 30.5 - 36.0 g/dL 34.7 RDW-CV 11.5 - 15.0 % 12.2 Platelet Count 150 - 400 k/uL 237 MPV 9.0 - 12.7 fL 11.1 Absolute nRBC <0.01 k/uL <0.01 Glucose 74 - 99 mg/dL 275 (H) BUN 9 - 24 mg/dL 21 Creatinine 0.73 - 1.22 mg/dL 1.41 (H) Sodium 136 - 144 mmol/L 136 Potassium 3.7 - 5.1 mmol/L 4.6 Chloride 98 - 107 mmol/L 101 CO2 22 - 30 mmol/L 20 (L) Anion Gap 8 - 15 mmol/L 15 Calcium 8.5 - 10.2 mg/dL 9.6 eGFR >=60 mL/min/1.73m? 62 Creatinine, Ur Random (UCRR) 20.0 - 300.0 mg/dL 184.7 Albumin, Urine Random mg/L 376.9 Albumin/Creat Ratio <30 mg/g 204 (H) Hemoglobin A1C 4.3 - 5.6 % 10.1 (H) Estimated Average Glucose mg/dL 243 Legend: (L) Low (H) High Assessment and Plan 1. Controlled type 2 diabetes mellitus with stage 2 chronic kidney disease, without long-term current use of insulin (HCC) - ICD9: 250.40, 585.2, ICD10: E11.22, N18.2 (primary diagnosis) - worsening control - shared medical decision making was done. He had good results with Trulicity in the past until coverage changed. His insurance was different this year. - eGFR: 62 Stable - Continue current medication. - DULAGLUTIDE 1.5 MG/0.5 ML SUBCUTANEOUS PEN INJECTOR. New prescription. Discussed medication dosage, usage, goals of therapy, and side effects. 2. Screening for depression - ICD9: V79.0, ICD10: Z13.31 - DEPRESSION SCREENING 3. Encounter for screening examination for other mental health and behavioral disorders - ICD9: V79.8, ICD10: Z13.39 - ANXIETY SCREENING 4. Essential hypertension - ICD9: 401.9, ICD10: I10 - Controlled - Continue current medications 5. Obesity, Class III, BMI >= 40 - ICD9: 278.01, ICD10: E66.813 Weight increasing - Behavioral intervention 6. Stasis dermatitis of both legs - ICD9: 454.1, ICD10: I87.2 - This was discussed. - If able to stay on GLP1 medication, and glucose improving, we can discontinue pioglitazone, which contributes to ed (more content not included)... Normal [facility] 08-06-2024 [facility] Telephone (INTMWS) ROBIN FERNÁNDEZ ([id number]) 1975 Date Time Provider Department 08/06/24 BENJI AMADO INTMWS During your visit today, we recorded the following information about you: Rosa M Campbell LPN 08/06/2024 5:07 PM Signed Patient calling can not afford Trulicity levine. He was given an alternative Liraglutide and asking if could prescribe that? Please advise Benji Amado MD 08/07/2024 1:18 PM Signed The following approved medication requests have been transmitted electronically. Requested Prescriptions Signed Prescriptions Disp Refills liraglutide (VICTOZA) 0.6 mg/ 0.1 ml subcutaneous pen injector 3 mL 1 Sig: Inject 0.6 mg subcutaneously once daily. Authorizing Provider: BENJI AMADO Note: Inject daily. MD Tushar Chaudhary Janice, LPN 08/07/2024 3:56 PM Signed Pt notified. Allergies As of Date: 08/06/2024 Noted Allergy Reaction Environmental (SEASONAL ALLERGIES)05/07/2021 16 - Unknown Date Reviewed: 08/06/2024 Reviewed by: Leena Puri LPN - Fully Assessed Reason for Visit: Medication Problem [65] Primary Visit Diagnosis:Controlled type 2 diabetes mellitus with stage 2 chronic kidney disease, without long-term current use of insulin (HCC) [E11.22, N18.2] Order(s):liraglutide (VICTOZA) 0.6 mg/ 0.1 ml subcutaneous pen injectorInject 0.6 mg subcutaneously once daily.Disp: 3 mLRfl: 1 Prescriptions as of 08/07/2024 - liraglutide (VICTOZA) 0.6 mg/ 0.1 ml subcutaneous pen injector Inject 0.6 mg subcutaneously once daily. - metFORMIN ER (GLUCOPHAGE XR) 500 mg 24 hr tablet Take 2 tablets by mouth two times a day before meals. - pantoprazole DR (PROTONIX) 40 mg tablet Take 1 tablet by mouth daily before breakfast. Take on empty stomach, 1/2 hr before meal. - pioglitazone (ACTOS) 15 mg tablet Take 1 tablet by mouth once daily. - amLODIPine (NORVASC) 5 mg tablet Take 1 tablet by mouth once daily. - losartan (COZAAR) 100 mg tablet Take 1 tablet by mouth once daily. - fluticasone (FLONASE) 50 mcg/actuation nasal spray Use 2 Sprays in each nostril once daily. Rinse mouth after use. Problem List As Of Date 08/06/2024 Noted Resolved Non-seasonal allergic rhinitis [J30.89] 04/06/2019 Essential hypertension [I10] 07/03/2020 Gastroesophageal reflux disease [K21.9] 12/22/2020 Uncontrolled type 2 diabetes mellitus with hype*12/22/2020 06/22/2023 Other microscopic hematuria [R31.29] 12/22/2020 Anosmia [R43.0] 07/02/2020 Mixed hyperlipidemia [E78.2] 05/07/2021 Controlled type 2 diabetes mellitus with stage *02/06/2024 Chronic kidney disease, stage 2, mildly decreas*02/06/2024 02/06/2024 Bilateral leg edema [R60.0] 02/06/2024 Obesity, Class III, BMI >= 40 [E66.813] 08/06/2024 Prescriptions ordered this encounter Disp Refills Start End LIRAGLUTIDE 0.6 MG/0.1 ML (18 MG/3 M* 3 mL 1 08/07/2024 Route: SQ Sig: Inject 0.6 mg subcutaneously once daily. Medications Discontinued During This Encounter Prescriptions - dulaglutide (TRULICITY) 1.5 mg/0.5 mL pen injector (Discontinued) Inject 1.5 mg subcutaneously one time a week. Encounter Status:Closed by MARCELLA FINLEY on 08/07/24 Normal [facility] ALBUMIN/CREATININE RATIO, UR INEon 07-30-2024 Albumin DL <= 20 mg/L (U) [Mass/Vol] 376.9 mg/L Normal [facility] Comment on above: Order Comment: Speci men Type: URINE SPECIMENOrdering Facility: [facility] Address: [address] [place] [address] Performed By: #### U ACR ####[facility] LABCLIA [id number] [place] [address] [place] Albumin/Creatinine (U) [Mass ratio] 204 mg/g High <30 [facility] Comment on above: Order Comment: Speci men Type: URINE SPECIMENOrdering Facility: [facility] Address: [address] [place] [address] Result Comment: Adul t Male and Female Nephrotic Criteria: <30 mg/g is considered normal to mildly increased 30-300 mg/g is considered moderately increased >300 mg/g is considered severely increased KDIGO. (2013). KDIGO 2012 Clinical Practice Guideline for the Evaluation and Management of Chronic Kidney Disease. Official Journal of the International Society of Nephrology, 3(1), 1-150. Performed By: #### U ACR ####[facility] LABCLIA [id number] [place] [id number] [place] Creatinine (U) [Mass/Vol] 184.7 mg/dL Normal 20.0-300.0 [facility] Comment on above: Order Comment: Speci men Type: URINE SPECIMENOrdering Facility: [facility] Address: [address] [place] [address] Performed By: #### U ACR ####[facility] LABCLIA [id number] [place] [id number] [place] Basic metabolic 2000 panelon 07-30-2024 Anion gap [Moles/Vol] 15 mmol/L Normal 8-15 [facility] Comment on above: Order Comment: Speci men Type: BLOOD SPECIMENOrdering Facility: [facility] Address: [address] [place] [address] Performed By: #### 2 4321-2 ####[facility] [id number] [place] [address] [place] Calcium [Mass/Vol] 9.6 mg/dL Normal 8.5-10.2 [facility] Comment on above: Order Comment: Speci men Type: BLOOD SPECIMENOrdering Facility: [facility] Address: [address] [place] [address] Performed By: #### 2 4321-2 ####[facility] MILLTOWNCLIA [id number] [place] [address] [place] Chloride [Moles/Vol] 101 mmol/L Normal 98-107 [facility] Comment on above: Order Comment: Speci men Type: BLOOD SPECIMENOrdering Facility: [facility] Address: [address] [place] [address] Performed By: #### 2 4321-2 ####[facility] MILLTOWNCLIA [id number] [place] [address] [place] CO2 [Moles/Vol] 20 mmol/L Low 22-30 [facility] Comment on above: Order Comment: Speci men Type: BLOOD SPECIMENOrdering Facility: [facility] Address: [address] [place] [address] Performed By: #### 2 4321-2 ####[facility] [id number] [place] [address] [place] Creatinine [Mass/Vol] 1.41 mg/dL High 0.73-1.22 [facility] Comment on above: Order Comment: Speci men Type: BLOOD SPECIMENOrdering Facility: [facility] Address: [address] [place] [address] Performed By: #### 2 4321-2 ####[facility] [id number] [place] [address] [place] Creatinine and Glomerular filtration rate.predicted panel (S/P/Bld) 62 mL/min/1.73m??? Normal >=60 [facility] Comment on above: Order Comment: Speci men Type: BLOOD SPECIMENOrdering Facility: [facility] Address: [address] [place] [address] Result Comment: Brigette mated Glomerular Filtration Rate (eGFR) is calculated using the 2020 CKD-EPI creatinine equation. This equation utilizes serum creatinine, sex, and age as parameters. The creatinine assay has traceable calibration to isotope dilution-mass spectrometry. Refer to KDIGO guidelines for clinical interpretation. In patients with unstable renal function, e.g. those with acute kidney injury, the eGFR may not accurately reflect actual GFR. Performed By: #### 2 4321-2 ####[facility] [id number] [place] [address] [place] Glucose [Mass/Vol] 275 mg/dL High 74-99 [facility] Comment on above: Order Comment: Speci men Type: BLOOD SPECIMENOrdering Facility: [facility] Address: [address] [place] [address] Result Comment: The [place] Diabetes Association (ADA) provides guidance for cutoff values for fasting glucose and random glucose. The ADA defines fasting as no caloric intake for at least 8 hours. Fasting plasma glucose results between 100 to 125 mg/dL indicate increased risk for diabetes (prediabetes). Fasting plasma glucose results greater than or equal to 126 mg/dL meet the criteria for diagnosis of diabetes. In the absence of unequivocal hyperglycemia, results should be confirmed by repeat testing. In a patient with classic symptoms of hyperglycemia or hyperglycemic crisis, random plasma glucose results greater than or equal to 200 mg/dL meet the criteria for diagnosis of diabetes. Reference: Standards of Medical Care in Diabetes 2016, [place] Diabetes Association. Diabetes Care. 2016.39(Suppl 1). Performed By: #### 2 4321-2 ####[facility] DORALMAURICIOKyra [id number] [place] [address] [place] Potassium [Moles/Vol] 4.6 mmol/L Normal 3.7-5.1 [facility] Comment on above: Order Comment: Speci men Type: BLOOD SPECIMENOrdering Facility: [facility] Address: [address] [place] [address] Performed By: #### 2 4321-2 ####[facility] DORALRAYRAY [id number] [place] [address] [place] Sodium [Moles/Vol] 136 mmol/L Normal 136-144 [facility] Comment on above: Order Comment: Speci men Type: BLOOD SPECIMENOrdering Facility: [facility] Address: [address] [place] [address] Performed By: #### 2 4321-2 ####[facility]IN [id number] [place] [address] [place] Urea nitrogen [Mass/Vol] 21 mg/dL Normal 9-24 [facility] Comment on above: Order Comment: Speci men Type: BLOOD SPECIMENOrdering Facility: [facility] Address: [address] [place] [address] Performed By: #### 2 4321-2 ####[facility] [id number] [place] [address] [place] CBC panel Auto (Bld)on 07-30 Erythrocyte distribution width (RBC) [Ratio] 12.2 % Normal 11.5-15.0 [facility] Comment on above: Order Comment: Speci men Type: BLOOD SPECIMENOrdering Facility: [facility] Address: [address] [place] [address] Performed By: #### 5 8410-2 ####[facility] [id number] [place] [address] [place] Hematocrit (Bld) [Volume fraction] 37.7 % Low 39.0-51.0 [facility] Comment on above: Order Comment: Speci men Type: BLOOD SPECIMENOrdering Facility: [facility] Address: [address] [place] [address] Performed By: #### 5 8410-2 ####[facility] [id number] [place] [address] [place] Hemoglobin (Bld) [Mass/Vol] 13.1 g/dL Normal 13.0-17.0 [facility] Comment on above: Order Comment: Speci men Type: BLOOD SPECIMENOrdering Facility: [facility] Address: [address] [place] [address] Performed By: #### 5 8410-2 ####[facility] [id number] [place] [address] [place] MCH (RBC) [Entitic mass] 30.0 pg Normal 26.0-34.0 [facility] Comment on above: Order Comment: Speci men Type: BLOOD SPECIMENOrdering Facility: [facility] Address: [address] [place] [address] Performed By: #### 5 8410-2 ####[facility] DORALNCALTA [facility]IEW [facility] [id number] [place] [address] [place] MCHC (RBC) [Mass/Vol] 34.7 g/dL Normal 30.5-36.0 [facility] Comment on above: Order Comment: Speci men Type: BLOOD SPECIMENOrdering Facility: [facility] Address: [address] [place] [address] Performed By: #### 5 8410-2 ####[facility] DORALMAURICIOALTA [facility]IEW [facility] [id number] [place] [address] [place] MCV (RBC) [Entitic vol] 86.5 fL Normal 80.0-100.0 [facility] Comment on above: Order Comment: Speci men Type: BLOOD SPECIMENOrdering Facility: [facility] Address: [address] [place] [address] Performed By: #### 5 8410-2 ####[facility] [id number] [place] [address] [place] Nucleated RBC (Bld) [#/Vol] 10*3/uL Normal <0.01 [facility] Comment on above: Order Comment: Speci men Type: BLOOD SPECIMENOrdering Facility: [facility] Address: [address] [place] [address] Performed By: #### 5 8410-2 ####[facility] [id number] [place] [address] [place] Platelet mean volume (Bld) [Entitic vol] 11.1 fL Normal 9.0-12.7 [facility] Comment on above: Order Comment: Speci men Type: BLOOD SPECIMENOrdering Facility: [facility] Address: [address] [place] [address] Performed By: #### 5 8410-2 ####[facility] [id number] [place] [address] [place] Platelets (Bld) [#/Vol] 237 10*3/uL Normal 150-400 [facility] Comment on above: Order Comment: Speci men Type: BLOOD SPECIMENOrdering Facility: [facility] Address: [address] [place] [address] Performed By: #### 5 8410-2 ####[facility] DORALNCLIA [id number] [place] [address] [place] RBC (Bld) [#/Vol] 4.36 10*6/uL Normal 4.20-6.00 [facility] Comment on above: Order Comment: Speci men Type: BLOOD SPECIMENOrdering Facility: [facility] Address: [address] [place] [address] Performed By: #### 5 8410-2 ####[facility] DORALNCLIA [id number] [place] [address] [place] WBC (Bld) [#/Vol] 8.21 10*3/uL Normal 3.70-11.00 [facility] Comment on above: Order Comment: Speci men Type: BLOOD SPECIMENOrdering Facility: [facility] Address: [address] [place] [address] Performed By: #### 5 8410-2 ####[facility] DORALNCLIA [id number] [place] [address] [place] HbA1c (Bld)on 07-30-2024 Average glucose Estimated from glycated hemoglobin (Bld) [Mass/Vol] 243 mg/dL Normal [facility] Comment on above: Order Comment: Speci men Type: BLOOD SPECIMENOrdering Facility: [facility] Address: [address] [place] [address] Result Comment: eAG: (Estimated average glucose) is a calculated value from HgbA1c and is senior patient account representative of the average blood glucose level in the last 2-3 month period. Performed By: #### 5 5454-3 ####[facility] LABCLIA [id number] [place] [address] [place] HbA1c (Bld) [Mass fraction] 10.1 % High 4.3-5.6 [facility] Comment on above: Order Comment: Speci men Type: BLOOD SPECIMENOrdering Facility: [facility] Address: [address] [place] [address] Result Comment: [place] Diabetes Association guidelines indicate that patients with HgbA1c in the range 5.7-6.4% are at increased risk for development of diabetes, and intervention by lifestyle modification may be beneficial. HgbA1c greater or equal to 6.5% is considered diagnostic of diabetes. Performed By: #### 5 5454-3 ####[facility] LABCLIA [id number] [id number] [facility] CNOVon 02-06-2024 CNOV Office Visit (INTMWS ) ROBIN FERNÁNDEZ ([id number]) 1975 M Date Time Provider Department 02/06/24 4:20 PM BENJI AMADO INTMWS During your visit today, we recorded the following information about you: Temperature Pulse Blood pressure Weight 98.3 degrees 92/minute 114/76 139.8 kg Benji Amado MD 02/06/2024 5:09 PM Signed This note was created using Aradigmriter. Subjective Robin Fernández is a 48 year old male. He was doing well, other than he started noticing leg swelling daily after taking his medications that resolve with sleep and leg elevation. No pain was noted. He took bupropion only for about a month, and stopped. Stressors have improved. Review of Systems Constitutional: Negative for fatigue and fever. Respiratory: Negative for shortness of breath. Cardiovascular: Positive for leg swelling. Negative for chest pain and palpitations. Gastrointestinal: Negative. Genitourinary: Negative for difficulty urinating and dysuria. Musculoskeletal: Negative for arthralgias. Neurological: Negative for dizziness and headaches. ACTIVE PROBLEM LIST Non-Seasonal Allergic Rhinitis Essential Hypertension Gastroesophageal Reflux Disease Other Microscopic Hematuria Anosmia Mixed Hyperlipidemia Controlled Type 2 Diabetes Mellitus With Stage 1 Chronic Kidney Disease, Without Long-Term Current Use of Insulin ([facility]) ([facility]) Social History Tobacco Use Smoking status: Never Smokeless tobacco: Never Vaping Use Vaping status: Never Used Substance Use Topics Alcohol use: Yes Drug use: Never Current Outpatient Medications Medication Sig metFORMIN ER (GLUCOPHAGE XR) 500 mg 24 hr tablet Take 2 tablets by mouth two times a day before meals. pioglitazone (ACTOS) 15 mg tablet Take 1 tablet by mouth once daily. pantoprazole DR (PROTONIX) 40 mg tablet Take 1 tablet by mouth daily before breakfast. Take on empty stomach, 1/2 hr before meal. amLODIPine (NORVASC) 10 mg tablet Take 1 tablet by mouth once daily. fluticasone (FLONASE) 50 mcg/actuation nasal spray Use 2 Sprays in each nostril once daily. Rinse mouth after use. losartan (COZAAR) 50 mg tablet Take 1 tablet by mouth once daily. predniSONE (DELTASONE) 10 mg tablet TAKE BY MOUTH 4 TABLETS DAILY FOR 2 DAYS, THEN 3 TABLETS DAILY FOR 2 DAYS, THEN 2 TABLETS DAILY FOR 2 DAYS, THEN 1 TABLET DAILY FOR 2 DAYS. (Patient not taking: Reported on 02/06/2024) buPROPion XL (WELLBUTRIN XL) 150 mg 24 hr tablet TAKE 1 TABLET BY MOUTH EVERY DAY (Patient not taking: Reported on 02/06/2024) albuterol HFA (PROVENTIL HFA, VENTOLIN HFA) 90 mcg/actuation inhaler Inhale 2 Puffs as instructed every 4 hours as needed for wheezing/shortness of breath. (Patient not taking: Reported on 07/06/2023) No current facility-administered medications for this visit. Objective BP 114/76 (BP Site: Left Arm, BP Position: Sitting, BP Cuff Size: Large Adult) Pulse 92 Temp 36.8 ?C (98.3 ?F) (Temporal) Wt (!) 139.8 kg (308 lb 3.3 oz) BMI 40.66 kg/m? Physical Exam Constitutional: General: He is not in acute distress. Appearance: He is not ill-appearing. Cardiovascular: Rate and Rhythm: Normal rate and regular rhythm. Heart sounds: No murmur heard. No gallop. Pulmonary: Breath sounds: Normal breath sounds. Musculoskeletal: Right lower le+ Edema present. Left lower le+ Edema present. Neurological: Mental Status: He is alert. Feet:Shoes and socks removed, No deformities, ulcers, calluses, normal distal pulses, and sensitive to 10 gm monofilament Latest Ref Rng 01/23/2024 Glucose 74 - 99 mg/dL 133 (H) BUN 9 - 24 mg/dL 20 Creatinine 0.73 - 1.22 mg/dL 1.54 (H) Sodium 136 - 144 mmol/L 135 (L) Potassium 3.7 - 5.1 mmol/L 4.0 Chloride 98 - 107 mmol/L 98 CO2 22 - 30 mmol/L 24 Anion Gap 8 - 15 mmol/L 13 Calcium 8.5 - 10.2 mg/dL 9.7 eGFR >=60 mL/min/1.73m? 56 (L) Cholesterol, Total <200 mg/dL 200 (H) Triglyceride <150 mg/dL 325 (H) HDL Cholesterol >39 mg/dL 27 (L) Non HDL Cholesterol <130 mg/dL 173 (H) Fasting Time hrs 13 VLDL Cholesterol <30 mg/dL 65 (H) TC:HDL Ratio <5.10 7.41 (H) LDL Cholesterol <100 mg/dL 108 (H) LDL:HDL Ratio <2.54 4.00 (H) Creatinine, Ur Random (UCRR) 20.0 - 300.0 mg/dL 152.0 Albumin, Urine Random mg/L 320.1 Albumin/Creat Ratio <30 mg/g 211 (H) Hemoglobin A1C 4.3 - 5.6 % 7.3 (H) Estimated Average Glucose mg/dL 163 Legend: (H) High (L) Low Assessment and Plan 1. Controlled type 2 diabetes mellitus with stage 2 chronic kidney disease, without long-term current use of insulin (HCC) (HCC) - ICD9: 250.40, 585.2, ICD10: E11.22, N18.2 (primary diagnosis) - Improving control - Continue current medications - eGFR: 56 Worsening - Counseled on avoiding NSAIDs, adequate hydration - BASIC METABOLIC PANEL - HEMOGLOBIN A1C - ALBUMIN/CREATININE RATIO, URINE 2. Essential hypertension - ICD9: (more content not included)... Normal [facility] ALBUMIN/CREATININE RATIO, UR INEon 01-23-2024 Albumin DL <= 20 mg/L (U) [Mass/Vol] 320.1 mg/L Normal [facility] Comment on above: Order Comment: Speci men Type: URINE SPECIMENOrdering Facility: [facility] Address: [address] [place] [address] Performed By: #### U ACR ####[facility] LABCLIA [id number] [place] [address] [place] Albumin/Creatinine (U) [Mass ratio] 211 mg/g High <30 [facility] Comment on above: Order Comment: Speci men Type: URINE SPECIMENOrdering Facility: [facility] Address: [address] [place] [address] Result Comment: Adul t Male and Female Nephrotic Criteria: <30 mg/g is considered normal to mildly increased 30-300 mg/g is considered moderately increased >300 mg/g is considered severely increased KDIGO. (2013). KDIGO 2012 Clinical Practice Guideline for the Evaluation and Management of Chronic Kidney Disease. Official Journal of the International Society of Nephrology, 3(1), 1-150. Performed By: #### U ACR ####[facility] LABIA [id number] [place] [address] [place] Creatinine (U) [Mass/Vol] 152.0 mg/dL Normal 20.0-300.0 [facility] Comment on above: Order Comment: Speci men Type: URINE SPECIMENOrdering Facility: [facility] Address: [address] [place] [address] Performed By: #### U ACR ####[facility] LABCLIA [id number] [place] [address] [place] Basic metabolic 2000 panelon 01-23-2024 Anion gap [Moles/Vol] 13 mmol/L Normal 8-15 [facility] Comment on above: Order Comment: Speci men Type: BLOOD SPECIMENOrdering Facility: [facility] Address: [address] [place] [address] Performed By: #### 2 4321-2, 15512-3 ####[facility] LABCLIA [id number] [facility] [address] [address] [place] Calcium [Mass/Vol] 9.7 mg/dL Normal 8.5-10.2 [facility] Comment on above: Order Comment: Speci men Type: BLOOD SPECIMENOrdering Facility: [facility] Address: [address] [place] [address] Performed By: #### 2 4320-2, 83303-0 ####[facility] LABCLIA [id number] [facility] [address] [place] Chloride [Moles/Vol] 98 mmol/L Normal 98-107 [facility] Comment on above: Order Comment: Speci men Type: BLOOD SPECIMENOrdering Facility: [facility] Address: [address] [place] [address] Performed By: #### 2 4320-03, 05687-2 ####[facility] LABCLIA [id number] [place] [address] [place] CO2 [Moles/Vol] 24 mmol/L Normal 22-30 [facility] Comment on above: Order Comment: Speci men Type: BLOOD SPECIMENOrdering Facility: [facility] Address: [address] [place], [place] [address] Performed By: #### 2 2, 55924-1 ####[facility] LABCLIA [id number] [facility] [place] [id number] [place] Creatinine [Mass/Vol] 1.54 mg/dL High 0.73-1.22 [facility] Comment on above: Order Comment: Speci men Type: BLOOD SPECIMENOrdering Facility: [facility] Address: [address] [place], [place] [address] Performed By: #### 2 432-2, 04135-3 ####[facility] LABCLIA [id number] [place] [id number] [place] Creatinine and Glomerular filtration rate.predicted panel (S/P/Bld) 56 mL/min/1.73m??? Low >=60 [facility] Comment on above: Order Comment: Dee tristan Type: BLOOD SPECIMENOrdering Facility: [facility] Address: [address] [place] [address] Result Comment: Brigette mated Glomerular Filtration Rate (eGFR) is calculated using the 2020 CKD-EPI creatinine equation. This equation utilizes serum creatinine, sex, and age as parameters. The creatinine assay has traceable calibration to isotope dilution-mass spectrometry. Refer to KDIGO guidelines for clinical interpretation. In patients with unstable renal function, e.g. those with acute kidney injury, the eGFR may not accurately reflect actual GFR. Performed By: #### 2 4321-2, 21342-1 ####[facility] LABCLIA [id number] [place] [address] [place] Glucose [Mass/Vol] 133 mg/dL High 74-99 [facility] Comment on above: Order Comment: Dee tristan Type: BLOOD SPECIMENOrdering Facility: [facility] Address: [address] [place] [address] Result Comment: The [place] Diabetes Association (ADA) provides guidance for cutoff values for fasting glucose and random glucose. The ADA defines fasting as no caloric intake for at least 8 hours. Fasting plasma glucose results between 100 to 125 mg/dL indicate increased risk for diabetes (prediabetes). Fasting plasma glucose results greater than or equal to 126 mg/dL meet the criteria for diagnosis of diabetes. In the absence of unequivocal hyperglycemia, results should be confirmed by repeat testing. In a patient with classic symptoms of hyperglycemia or hyperglycemic crisis, random plasma glucose results greater than or equal to 200 mg/dL meet the criteria for diagnosis of diabetes. Reference: Standards of Medical Care in Diabetes 2016, [place] Diabetes Association. Diabetes Care. 2016.39(Suppl 1). Performed By: #### 2 4321-2, 56026-5 ####[facility] LABCLIA [id number] [place] [address] [place] Potassium [Moles/Vol] 4.0 mmol/L Normal 3.7-5.1 [facility] Comment on above: Order Comment: Speci men Type: BLOOD SPECIMENOrdering Facility: [facility] Address: [facility] [place] [address] Performed By: #### 2 4321-2, 16027-0 ####[facility] LABCLIA [id number] [place] [address] [place] Sodium [Moles/Vol] 135 mmol/L Low 136-144 [facility] Comment on above: Order Comment: Speci men Type: BLOOD SPECIMENOrdering Facility: [facility] Address: [address] [place] [address] Performed By: #### 2 4321-2, 68357-9 ####[facility] LABIA [id number] [place] [address] [place] Urea nitrogen [Mass/Vol] 20 mg/dL Normal 9-24 [facility] Comment on above: Order Comment: Speci men Type: BLOOD SPECIMENOrdering Facility: [facility] Address: [address] [place] [address] Performed By: #### 2 4321-2, 40246-6 ####[facility] LABCLIA [id number] [place] [address] [place] HbA1c (Bld)on 01-23-2024 Average glucose Estimated from glycated hemoglobin (Bld) [Mass/Vol] 163 mg/dL Normal [facility] Comment on above: Order Comment: Speci men Type: BLOOD SPECIMENOrdering Facility: [facility] Address: [address] [place] [address] Result Comment: eAG: (Estimated average glucose) is a calculated value from HgbA1c and is senior patient account representative of the average blood glucose level in the last 2-3 month period. Performed By: #### 5 5454-3 ####[facility] LABCLIA [id number] [place] [address] [place] HbA1c (Bld) [Mass fraction] 7.3 % High 4.3-5.6 [facility] Comment on above: Order Comment: Yuei men Type: BLOOD SPECIMENOrdering Facility: [facility] Address: [address] [place] [address] Result Comment: [place] Diabetes Association guidelines indicate that patients with HgbA1c in the range 5.7-6.4% are at increased risk for development of diabetes, and intervention by lifestyle modification may be beneficial. HgbA1c greater or equal to 6.5% is considered diagnostic of diabetes. Performed By: #### 5 5454-3 ####[facility] LABCLIA [id number] [place] [address] [place] Lipid 1996 panelon 4 Cholesterol [Mass/Vol] 200 mg/dL High <200 [facility] Comment on above: Order Comment: Dee kun Type: BLOOD SPECIMENOrdering Facility: [facility] Address: [address] [place] [address] Result Comment: <200 mg/dL, Desirable 200-239 mg/dL, Borderline high >239 mg/dL, High Performed By: #### 2 4321-2, 60493-2 ####[facility] LABCLIA [id number] [address] [place] Cholesterol in HDL [Mass/Vol] 27 mg/dL Low >39 [facility] Comment on above: Order Comment: Dee kun Type: BLOOD SPECIMENOrdering Facility: [facility] Address: [address] [place] [address] Result Comment: 40-5 9 mg/dL, Acceptable >59 mg/dL, High: Negative risk factor for coronary heart disease <40 mg/dL, Low: Positive risk factor for coronary heart disease Performed By: #### 2 4321-2, 88042-5 ####[facility] LABCLIA [id number] [address] [place] Cholesterol in LDL [Mass/Vol] 108 mg/dL High <100 [facility] Comment on above: Order Comment: Speci men Type: BLOOD SPECIMENOrdering Facility: [facility] Address: [address] [place] [address] Result Comment: <100 mg/dL, Optimal 100-129 mg/dL, Near optimal/above optimal 130-159 mg/dL, Borderline high 160-189 mg/dL, High >189 mg/dL, Very high Secondary prevention optimal LDL Cholesterol levels are recommended to be < 70 mg/dL Performed By: #### 2 432-2, 35469-4 ####[facility] LABCLIA [id number] [place] [address] [place] Cholesterol in LDL/Cholesterol in HDL [Mass ratio] 4.00 {ratio} High <2.54 [facility] Comment on above: Order Comment: Dee tristan Type: BLOOD SPECIMENOrdering Facility: [facility] Address: [address] [place] [address] Result Comment: Refe rence: 1. National Cholesterol Education Program ATP III Guideline At-A-Glance Quick Desk Reference: National Heart, Lung, and Blood [place]. National Institutes of Health. 2001: NIH Publication No. 01-3305. 2. An International Atherosclerosis Society position paper: global recommendations for the management of dyslipidemia: executive summary, Atherosclerosis. 2014: 232(2):410-413. Performed By: #### 2 4320-, 64744-2 ####[facility] LABCLIA [id number] [place] [address] [place] Cholesterol in VLDL [Mass/Vol] 65 mg/dL High <30 [facility] Comment on above: Order Comment: Dee kun Type: BLOOD SPECIMENOrdering Facility: [facility] Address: [address] [place] [address] Performed By: #### 2 4320-2, 10596-7 ####[facility] LABCLIA [id number] [place] [id number] [place] Cholesterol non HDL [Mass/Vol] 173 mg/dL High <130 [facility] Comment on above: Order Comment: Yuemerline men Type: BLOOD SPECIMENOrdering Facility: [facility] Address: [address] [place] [address] Result Comment: <130 mg/dL, Optimal 130-159 mg/dL, Near optimal/above optimal 160-189 mg/dL, Borderline high 190-219 mg/dL, High >219 mg/dL, Very high Secondary prevention optimal non HDL Cholesterol levels are recommended to be <100 mg/dL Performed By: #### 2 4321-2, 18289-0 ####[facility] LABCLIA [id number] [place] [address] [place] Cholesterol.total/Ch olesterol in HDL [Mass ratio] 7.41 {ratio} High <5.10 [facility] Comment on above: Order Comment: Speci men Type: BLOOD SPECIMENOrdering Facility: [facility] Address: [address] [place] [address] Performed By: #### 2 4321-2, 62991-1 ####[facility] LABCLIA [id number] [address] [place] FASTING TIME 13 hrs Normal [facility] Comment on above: Order Comment: Speci men Type: BLOOD SPECIMENOrdering Facility: [facility] Address: [address] [place] [address] Performed By: #### 2 4321-2, 73960-6 ####[facility] LABCLIA [id number] [place] [address] [place] Triglyceride [Mass/Vol] 325 mg/dL High <150 [facility] Comment on above: Order Comment: Speci men Type: BLOOD SPECIMENOrdering Facility: [facility] Address: [address] [place] [address] Result Comment: <150 mg/dL, Normal 150-199 mg/dL, Borderline high 200-499 mg/dL, High >499 mg/dL, Very high Performed By: #### 2 4321-2, 29710-7 ####[facility] LABCLIA [id number] [place] [address] [facility] Matt 10-25-2023 [facility] Telephone (INTMWS) ROBIN FERNÁNDEZ ([id number]) 1975 M Date Time Provider Department 10/25/23 BENJI AMADO INTLENA During your visit today, we recorded the following information about you: Rosa M Campbell LPN 10/25/2023 2:00 PM Signed ----- Message from Benji Amado MD sent at 10/25/2023 1:17 PM EDT ----- Bibasilar atelectasis. No pneumonia. Encourage deep breathing exercises. Rosa M Campbell LPN 10/25/2023 2:03 PM Signed Phoned patient and went over results, notes from Dr Amado with understanding. Allergies As of Date: 10/25/2023 Noted Allergy Reaction Environmental (SEASONAL ALLERGIES)05/07/2021 16 - Unknown Date Reviewed: 10/20/2023 Reviewed by: Leena Puri LPN - Fully Assessed Reason for Visit: Results [95] Prescriptions as of 10/25/2023 - azithromycin (ZITHROMAX Z-TUSHAR) 250 mg tablet Take 2 tablets day one, then, 1 tablet daily until gone. - predniSONE (DELTASONE) 10 mg tablet TAKE BY MOUTH 4 TABLETS DAILY FOR 2 DAYS, THEN 3 TABLETS DAILY FOR 2 DAYS, THEN 2 TABLETS DAILY FOR 2 DAYS, THEN 1 TABLET DAILY FOR 2 DAYS. - metFORMIN ER (GLUCOPHAGE XR) 500 mg 24 hr tablet Take 2 tablets by mouth two times a day before meals. - buPROPion XL (WELLBUTRIN XL) 150 mg 24 hr tablet TAKE 1 TABLET BY MOUTH EVERY DAY - pioglitazone (ACTOS) 15 mg tablet Take 1 tablet by mouth once daily. - pantoprazole DR (PROTONIX) 40 mg tablet Take 1 tablet by mouth daily before breakfast. Take on empty stomach, 1/2 hr before meal. - amLODIPine (NORVASC) 10 mg tablet Take 1 tablet by mouth once daily. - fluticasone (FLONASE) 50 mcg/actuation nasal spray Use 2 Sprays in each nostril once daily. Rinse mouth after use. - losartan (COZAAR) 50 mg tablet Take 1 tablet by mouth once daily. - albuterol HFA (PROVENTIL HFA, VENTOLIN HFA) 90 mcg/actuation inhaler Inhale 2 Puffs as instructed every 4 hours as needed for wheezing/shortness of breath. Problem List As Of Date 10/25/2023 Noted Resolved Non-seasonal allergic rhinitis [J30.89] 04/06/2019 Essential hypertension [I10] 07/03/2020 Gastroesophageal reflux disease [K21.9] 12/22/2020 Uncontrolled type 2 diabetes mellitus with hype*12/22/2020 06/22/2023 Other microscopic hematuria [R31.29] 12/22/2020 Anosmia [R43.0] 07/02/2020 Mixed hyperlipidemia [E78.2] 05/07/2021 Controlled type 2 diabetes mellitus with stage *12/27/2022 Encounter Status:Closed by ROSA M CAMPBELL on 10/25/23 Normal [facility] XR Chest PA and Lateralon IMPRESSION: Bibasilar atelectasis/scarring. It Infrastructure Consultant: AYANA Transcribe Date/Time: Oct 21 2023 8:19A Dictated by : RIKA PURVIS MD This examination was interpreted and the report reviewed and electronically signed by: RIKA PURVIS MD on Oct 21 2023 8:20AM [facility] DIVISION OF RADIOLOGY * * *Final Report* * * DATE OF EXAM: Oct 20 2023 6:02PM WOX 5291 - XR CHEST 2V FRONTAL/LAT / PROCEDURE REASON: Bronchitis with wheezing * * * * Physician Interpretation * * * * EXAMINATION: CHEST RADIOGRAPH (2 VIEW FRONTAL & LATERAL) CLINICAL HISTORY: Bronchitis with wheezing MQ: XC2_6 EXAM DATE/TIME: 10/20/2023 6:02 PM COMPARISON: Chest x-ray on 03/09/2023 RESULT: Lines, tubes, and devices: None. Lungs and pleura: Bibasilar atelectasis/scarring is noted. No definite consolidation. No lung mass. No pleural effusion. No pneumothorax. Cardiomediastinal silhouette: Normal cardiomediastinal silhouette. Bones and soft tissues: There are mild degenerative changes in the spine. DIVISION OF RADIOLOGY Provider, Norberto Rose - 10/21/2023 * * *Final Report* * * DATE OF EXAM: Oct 20 2023 6:02PM WOX 5291 - XR CHEST 2V FRONTAL/LAT / PROCEDURE REASON: Bronchitis with wheezing * * * * Physician Interpretation * * * * EXAMINATION: CHEST RADIOGRAPH (2 VIEW FRONTAL & LATERAL) CLINICAL HISTORY: Bronchitis with wheezing MQ: XC2_6 EXAM DATE/TIME: 10/20/2023 6:02 PM COMPARISON: Chest x-ray on 03/09/2023 RESULT: Lines, tubes, and devices: None. Lungs and pleura: Bibasilar atelectasis/scarring is noted. No definite consolidation. No lung mass. No pleural effusion. No pneumothorax. Cardiomediastinal silhouette: Normal cardiomediastinal silhouette. Bones and soft tissues: There are mild degenerative changes in the spine. IMPRESSION IMPRESSION: Bibasilar atelectasis/scarring. It Infrastructure Consultant: PSCB Transcribe Date/Time: Oct 21 2023 8:19A Dictated by : RIKA PURVIS MD This examination was interpreted and the report reviewed and electronically signed by: RIKA PURVIS MD on Oct 21 2023 8:20AM EST [facility] XR Chest PA and LateralOrder ed By: [facility] Provider on 10-21-2023 [facility] CNOVon 10-20-2023 CNOV Office Visit (INTMWS ) ROBIN FERNÁNDEZ ([id number]) 1975 M Date Time Provider Department 10/20/23 4:40 PM BENJI AMADO INTMWS During your visit today, we recorded the following information about you: Temperature Pulse Respiration Blood pressure 97.9 degrees 84/minute 18/minute 136/87 Weight 138.2 kg Benji Amado MD 10/20/2023 6:00 PM Signed This note was created using Aradigmriter. Subjective Robin Fernández is a 48 year old male who presents with complaint of sinus infection, sinus symptoms, facial pain/pressure maxillary, on the right, post nasal drip, cough- barky, congested, with some wheezing heard, with coughing fits, with some dyspnea, and fatigue for 8 weeks. He denies fever ear pain, sore throat, nausea, vomiting, and diarrhea. Persistent symptoms prompted EC visit last week. Treatments tried include Albuterol, Augmentin, and prednisone with partial relief of symptoms. He only used albuterol twice a day and felt it was not helpful. Review of Systems Per HPI. ACTIVE PROBLEM LIST Non-Seasonal Allergic Rhinitis Essential Hypertension Gastroesophageal Reflux Disease Other Microscopic Hematuria Anosmia Mixed Hyperlipidemia Controlled Type 2 Diabetes Mellitus With Stage 1 Chronic Kidney Disease, Without Long-Term Current Use of Insulin ([facility]) ([facility]) Social History Tobacco Use Smoking status: Never Smokeless tobacco: Never Vaping Use Vaping status: Never Used Substance Use Topics Alcohol use: Yes Drug use: Never Current Outpatient Medications Medication Sig metFORMIN ER (GLUCOPHAGE XR) 500 mg 24 hr tablet Take 2 tablets by mouth two times a day before meals. buPROPion XL (WELLBUTRIN XL) 150 mg 24 hr tablet TAKE 1 TABLET BY MOUTH EVERY DAY pioglitazone (ACTOS) 15 mg tablet Take 1 tablet by mouth once daily. pantoprazole DR (PROTONIX) 40 mg tablet Take 1 tablet by mouth daily before breakfast. Take on empty stomach, 1/2 hr before meal. amLODIPine (NORVASC) 10 mg tablet Take 1 tablet by mouth once daily. fluticasone (FLONASE) 50 mcg/actuation nasal spray Use 2 Sprays in each nostril once daily. Rinse mouth after use. losartan (COZAAR) 50 mg tablet Take 1 tablet by mouth once daily. albuterol HFA (PROVENTIL HFA, VENTOLIN HFA) 90 mcg/actuation inhaler Inhale 2 Puffs as instructed every 4 hours as needed for wheezing/shortness of breath. (Patient not taking: Reported on 07/06/2023) blood sugar diagnostic (BLOOD GLUCOSE TEST) test strip Test blood sugar(s) 2 times daily. Dx: Type 2 DM - Uncontrolled E11.65 Insulin: No (Patient not taking: Reported on 07/06/2023) Lancets lancets Test blood sugar(s) 2 times daily. Dx: Type 2 DM - Uncontrolled E11.65 Insulin: No (Patient not taking: Reported on 06/22/2023) No current facility-administered medications for this visit. Objective BP 144/90 (BP Site: Left Arm, BP Position: Sitting, BP Cuff Size: Large Adult) Pulse 88 Temp 36.6 ?C (97.9 ?F) (Temporal) Wt (!) 138.2 kg (304 lb 10.8 oz) BMI 40.20 kg/m? Physical Exam Constitutional: General: He is not in acute distress. Appearance: He is not ill-appearing or diaphoretic. HENT: Nose: Congestion present. No rhinorrhea. Right Sinus: No maxillary sinus tenderness or frontal sinus tenderness. Left Sinus: No maxillary sinus tenderness or frontal sinus tenderness. Mouth/Throat: Pharynx: No oropharyngeal exudate or posterior oropharyngeal erythema. Cardiovascular: Rate and Rhythm: Normal rate and regular rhythm. Pulmonary: Effort: No respiratory distress. Breath sounds: Wheezing and rhonchi present. Comments: Improved breath sounds post nebulizer. Lymphadenopathy: Cervical: No cervical adenopathy. Neurological: Mental Status: He is alert. Assessment and Plan 1. Bronchitis with wheezing - ICD9: 490, ICD10: J40 (primary diagnosis) He was encouraged to use his albuterol with spacer device every 4 hours as needed. - AZITHROMYCIN 250 MG TABLET - PREDNISONE 10 MG TABLET - ALBUTEROL SULFATE 2.5 MG/3 ML (0.083 %) SOLUTION FOR NEBULIZATION - INHALATIONAL SPACING DEVICE - XR CHEST 2V FRONTAL/LAT Discussed medication dosage, usage, goals of therapy, and side effects. 2. Acute non-recurrent sinusitis, unspecified location - ICD9: 461.9, ICD10: J01.90 See above. - AZITHROMYCIN 250 MG TABLET - PREDNISONE 10 MG TABLET Benji Amado MD Allergies As of Date: 10/20/2023 Noted Allergy Reaction Environmental (SEASONAL ALLERGIES)05/07/2021 16 - Unknown Date Reviewed: 10/20/2023 Reviewed by: Leena Puri LPN - Fully Assessed Reason for Visit: Follow Up [171] Primary Visit Diagnosis:Bronchitis with wheezing [J40] Other Visit Diagnosis:Acute non-recurrent sinusitis, unspecified location [J01.90] Order(s):azithromycin (ZITHROMAX Z-TUSHAR) 250 mg tabletTake 2 tablets day one, then, 1 tablet daily until gone.Disp: 6 tabletRfl: 0 pr (more content not included)... Normal [facility] XR CHEST 2V FRONTAL/LATon XR CHEST 2V FRONTAL/LAT * * *Final Report* * * DATE OF EXAM: Oct 20 2023 6:02PM WOX 5291 - XR CHEST 2V FRONTAL/LAT / PROCEDURE REASON: Bronchitis with wheezing * * * * Physician Interpretation * * * * EXAMINATION: CHEST RADIOGRAPH (2 VIEW FRONTAL and LATERAL) CLINICAL HISTORY: Bronchitis with wheezing MQ: XC2_6 EXAM DATE/TIME: 10/20/2023 6:02 PM COMPARISON: Chest x-ray on 03/09/2023 RESULT: Lines, tubes, and devices: None. Lungs and pleura: Bibasilar atelectasis/scarring is noted. No definite consolidation. No lung mass. No pleural effusion. No pneumothorax. Cardiomediastinal silhouette: Normal cardiomediastinal silhouette. Bones and soft tissues: There are mild degenerative changes in the spine. IMPRESSION: Bibasilar atelectasis/scarring. It Infrastructure Consultant: AYANA Transcribe Date/Time: Oct 21 2023 8:19A Dictated by : RIKA PURVIS MD This examination was interpreted and the report reviewed and electronically signed by: RIKA PURVIS MD on Oct 21 2023 8:20AM EST [id number] Normal [facility] XR Chest PA and Lateralon Radiology Study observation (narrative) [facility] CNOVon 10-11-2023 CNOV Office Visit (UCWSTR ) ROBIN FERNÁNDEZ ([id number]) 1975 M Date Time Provider Department 10/11/23 4:30 PM TED URIOSTEGUI During your visit today, we recorded the following information about you: Temperature Pulse Respiration Blood pressure 98.3 degrees 93/minute 20/minute 151/87 Weight 139.9 kg Ted Uriostegui APRN.WAREHOUSE ORDER PICKER 10/11/2023 5:31 PM Signed Subjective HPI HPI Robin Fernández is a 48 year old male who presents today for CC of cough, congestion for 6 weeks, sinus pressure for 1 week. Has tried otc medication for relief. Symptoms are worsened by nothing. Risk factors hx of sinusitis. nonsmoker. .Patient presents with: Cough: Chest congestion, sinus pain and pressure, VILLALOBOS x6 weeks PAST MEDICAL HISTORY 07/02/2020: Anosmia 02/08/2020: COVID-19 07/03/2020: Essential hypertension 12/22/2020: Gastroesophageal reflux disease 2010: Hypertension 05/07/2021: Mixed hyperlipidemia 04/06/2019: Non-seasonal allergic rhinitis No date: Sleep apnea 12/22/2020: Uncontrolled type 2 diabetes mellitus with hyperglycemia (HCC) PAST SURGICAL HISTORY 2008: CARPAL TUNNEL; Bilateral 05/17/2022: COLONOSCOPY SCREENING Comment: hyperplastic polyps x 2 2019: ROTATOR CUFF REPAIR; Left Comment: Dr. Yancey 2008: VASECTOMY UNI/BI SPX W/POSTOP SEMEN EXAMS ALLERGIES Environmental [Seasonal Allergies] MEDICATIONS metFORMIN ER (GLUCOPHAGE XR) 500 mg 24 hr tablet Take 2 tablets by mouth two times a day before meals. buPROPion XL (WELLBUTRIN XL) 150 mg 24 hr tablet TAKE 1 TABLET BY MOUTH EVERY DAY pioglitazone (ACTOS) 15 mg tablet Take 1 tablet by mouth once daily. pantoprazole DR (PROTONIX) 40 mg tablet Take 1 tablet by mouth daily before breakfast. Take on empty stomach, 1/2 hr before meal. amLODIPine (NORVASC) 10 mg tablet Take 1 tablet by mouth once daily. fluticasone (FLONASE) 50 mcg/actuation nasal spray Use 2 Sprays in each nostril once daily. Rinse mouth after use. losartan (COZAAR) 50 mg tablet Take 1 tablet by mouth once daily. predniSONE (DELTASONE) 20 mg tablet Take 2 tablets by mouth once daily for 5 days. amoxicillin-clavulanat e potassium (AUGMENTIN) 875-125 mg per tablet Take 1 tablet by mouth two times a day for 7 days. albuterol HFA (PROVENTIL HFA, VENTOLIN HFA) 90 mcg/actuation inhaler Inhale 2 Puffs as instructed every 4 hours as needed for wheezing/shortness of breath. (Patient not taking: Reported on 07/06/2023) blood sugar diagnostic (BLOOD GLUCOSE TEST) test strip Test blood sugar(s) 2 times daily. Dx: Type 2 DM - Uncontrolled E11.65 Insulin: No (Patient not taking: Reported on 07/06/2023) Lancets lancets Test blood sugar(s) 2 times daily. Dx: Type 2 DM - Uncontrolled E11.65 Insulin: No (Patient not taking: Reported on 06/22/2023) FAMILY HISTORY Problem Relation Age of Onset Hypertension Mother Blood Disease Mother leukemia Hypertension Father Coronary Artery Disease Father stented Ischemic Heart Disease Father CABG Arrythmias Brother Heart Brother 47 Valve replacement Diabetes Maternal Grandmother Coronary Artery Disease Maternal Grandmother Diabetes Maternal Grandfather Coronary Artery Disease Maternal Grandfather cabg Diabetes Paternal Grandfather Coronary Artery Disease Paternal Grandfather cabg Social History Tobacco Use Smoking status: Never Smokeless tobacco: Never Vaping Use Vaping Use: Never used Substance Use Topics Alcohol use: Yes Drug use: Never Review of Systems Constitutional: Negative for fever. HENT: Positive for congestion and sinus pain. Negative for ear pain, nosebleeds and sore throat. Respiratory: Positive for cough and sputum production. Negative for shortness of breath and wheezing. Musculoskeletal: Negative for neck pain. Objective Blood pressure 151/87, pulse 93, temperature 36.8 ?C (98.3 ?F), resp. rate 20, weight (!) 139.9 kg (308 lb 6.8 oz), SpO2 97%. Physical Exam Constitutional: General: He is not in acute distress. Appearance: He is not toxic-appearing or diaphoretic. HENT: Head: Normocephalic and atraumatic. Nose: Right Sinus: Maxillary sinus tenderness present. Left Sinus: Maxillary sinus tenderness present. Cardiovascular: Rate and Rhythm: Normal rate and regular rhythm. Heart sounds: Normal heart sounds, S1 normal and S2 normal. Pulmonary: Effort: Pulmonary effort is normal. Breath sounds: Normal breath sounds. Lymphadenopathy: Cervical: No cervical adenopathy. Right cervical: No superficial cervical adenopathy. Left cervical: No superficial cervical adenopathy. Neurological: Mental Status: He is alert and oriented to person, place, and time. Gait: Gait is intact. ASSESSMENT/PLAN: 1. Sinobronchitis - ICD9: 473.9, 490, ICD10: J32.9, J40 - Will begin treatment with as per antibiotic as written, see orders - Supportive care with plenty of fluids, rest, and obed (more content not included)... Normal [facility] XR Ribs - left Views and Carmen st PAon 07-06-2023 IMPRESSION: No acute radiographic abnormality. It Infrastructure Consultant: PSCB Transcribe Date/Time: Jul 06 2023 5:11P Dictated by : SAUMYA GROSS DO This examination was interpreted and the report reviewed and electronically signed by: SAUMYA GROSS DO on Jul 06 2023 5:14PM [facility] DIVISION OF RADIOLOGY * * *Final Report* * * DATE OF EXAM: Jul 06 2023 5:05PM WOX [id number] - XR RIB/CHST 3V AP RIB/OBL/CHST L / PROCEDURE REASON: Rib injury * * * * Physician Interpretation * * * * EXAMINATION: XR RIB/CHST 3V AP RIB/OBL/CHST L PATIENT/TECHNOLOGIST PROVIDED HISTORY: Left sided rib pain after injury 2 days ago. Pain is in lateral lower ribs. CLINICAL INFORMATION: 48 years old Male with Rib injury COMPARISON: Chest radiograph 03/09/2023 TECHNIQUE: XR RIB/CHST 3V AP RIB/OBL/CHST L 3 views. Frontal chest and images of the left ribs RESULT: Ribs: No radiographic evidence of LEFT rib fracture. Lungs and pleura: No consolidation. No discernible pleural effusion or pneumothorax. Cardiomediastinal silhouette: Normal cardiomediastinal silhouette. DIVISION OF RADIOLOGY Provider, [facility] - 07/06/2023 * * *Final Report* * * DATE OF EXAM: Jul 06 2023 5:05PM WOX [id number] - XR RIB/CHST 3V AP RIB/OBL/CHST L / PROCEDURE REASON: Rib injury * * * * Physician Interpretation * * * * EXAMINATION: XR RIB/CHST 3V AP RIB/OBL/CHST L PATIENT/TECHNOLOGIST PROVIDED HISTORY: Left sided rib pain after injury 2 days ago. Pain is in lateral lower ribs. CLINICAL INFORMATION: 48 years old Male with Rib injury COMPARISON: Chest radiograph 03/09/2023 TECHNIQUE: XR RIB/CHST 3V AP RIB/OBL/CHST L 3 views. Frontal chest and images of the left ribs RESULT: Ribs: No radiographic evidence of LEFT rib fracture. Lungs and pleura: No consolidation. No discernible pleural effusion or pneumothorax. Cardiomediastinal silhouette: Normal cardiomediastinal silhouette. IMPRESSION IMPRESSION: No acute radiographic abnormality. It Infrastructure Consultant: AYANA Transcribe Date/Time: Jul 06 2023 5:11P Dictated by : SAUMYA GROSS DO This examination was interpreted and the report reviewed and electronically signed by: SAUMYA GROSS DO on Jul 06 2023 5:14PM EST [facility] Radiology Study observation (narrative) [facility] XR Ribs - left Views and Carmen st PAOrdered By: Ccf Provider on 07-06-2023 [facility] XR Chest PA and Lateralon IMPRESSION: No acute radiographic abnormality. It Infrastructure Consultant: AYANA Transcribe Date/Time: Mar 09 2023 9:05A Dictated by : RIKA PURVIS MD This examination was interpreted and the report reviewed and electronically signed by: RIKA PURVIS MD on Mar 09 2023 9:06AM [facility] DIVISION OF RADIOLOGY * * *Final Report* * * DATE OF EXAM: Mar 09 2023 9:02AM WOX [id number] - XR CHEST 2V FRONTAL/LAT / PROCEDURE REASON: multiple diagnoses * * * * Physician Interpretation * * * * EXAMINATION: CHEST RADIOGRAPH (2 VIEW FRONTAL & LATERAL) CLINICAL HISTORY: SOB (shortness of breath) Wheezing MQ: XC2_6 EXAM DATE/TIME: 03/09/2023 9:02 AM COMPARISON: Chest x-ray on 08/15/2019 RESULT: Lines, tubes, and devices: None. Lungs and pleura: No consolidation. No lung mass. No pleural effusion. No pneumothorax. Cardiomediastinal silhouette: Normal cardiomediastinal silhouette. Bones and soft tissues: There are degenerative changes in the spine. DIVISION OF RADIOLOGY Provider, Norberto Tapiasebastián delgado [place] - 03/09/2023 * * *Final Report* * * DATE OF EXAM: Mar 09 2023 9:02AM WOX [id number] - XR CHEST 2V FRONTAL/LAT / PROCEDURE REASON: multiple diagnoses * * * * Physician Interpretation * * * * EXAMINATION: CHEST RADIOGRAPH (2 VIEW FRONTAL & LATERAL) CLINICAL HISTORY: SOB (shortness of breath) Wheezing MQ: XC2_6 EXAM DATE/TIME: 03/09/2023 9:02 AM COMPARISON: Chest x-ray on 08/15/2019 RESULT: Lines, tubes, and devices: None. Lungs and pleura: No consolidation. No lung mass. No pleural effusion. No pneumothorax. Cardiomediastinal silhouette: Normal cardiomediastinal silhouette. Bones and soft tissues: There are degenerative changes in the spine. IMPRESSION IMPRESSION: No acute radiographic abnormality. It Infrastructure Consultant: [facility] Transcribe Date/Time: Mar 09 2023 9:05A Dictated by : RIKA PURVIS MD This examination was interpreted and the report reviewed and electronically signed by: RIKA PURVIS MD on Mar 09 2023 9:06AM EST [facility] Radiology Study observation (narrative) [facility] XR Chest PA and LateralOrder ed By: Ccf Provider on 03-09-2023 [facility] CORONAVIRUS 2019 BY PCRon CORONAVIRUS 2019,PCR DETECTED Abnormal Not Detected [facility] Comment on above: Order Comment: +COVI D CALLED TO DASIA DÍAZ , 02/12/2020 09:38 Result Comment: . This assay is designed to detect the N, ORF1ab and/or S genes of SARS-CoV-2 via nucleic acid amplification. A Negative (NOT DETECTED) result does not preclude 2019-nCoV infection since the adequacy of sample collection and/or low viral burden may result in presence of viral nucleic acids below the clinical sensitivity of this test method. Negative (NOT DETECTED) result should not be used as the sole basis for treatment or other patient management decisions. Rather negative results should be combined with clinical observations, patient history, and epidemiological information to make patient management decisions. Fact sheet for providers: https://www.fda.gov/media/531781/download Fact sheet for patients: https://www.fda.gov/media/391523/download This test has received FDA Emergency Use Authorization (EUA) and has been verified by [facility] ([facility]). This test is only authorized for the duration of time that circumstances exist to justify the authorization of the emergency use of in vitro diagnostic tests for the detection of SARS-CoV-2 virus and/or diagnosis of COVID-19 infection under section 564(b)(1) of the Act, 21 U.S.C. 360bbb-3(b)(1), unless the authorization is terminated or revoked sooner. [facility] is certified under CLIA-88 as qualified to perform high complexity testing. Testing is performed in the [facility] laboratories located at [address] [place] [address]. +COVID CALLED TO DASIA DÍAZ , 02/12/2020 09:38 Performed By: #### C OV19 #### [address] [place] [address] Covid 19 Resultson 0 Covid 19 Results POSITIVE COVID-[address] Coronaviruses are common world-wide and are the cause of many common colds. SARS-COV2 is a new coronavirus that began circulating worldwide in 2019 so we are calling it COVID-19. It has been estimated that four out of five patients with COVID-19 will recover at home without the need for medical attention. Symptoms of COVID-19 include cough, fever, shortness of breath, loss of taste or smell and other flu-like symptoms including chills, sore muscles, sore throat, and headache. Severe illness is more common in older people and people with other health problems such as high blood pressure, obesity, and immune system problems. If the test is positive, you have COVID-19. You will be contacted by the ordering physicians office and instructed to remain on home isolation, in accordance with CDC guidelines. You may also be contacted by the [facility] to see if any of your close contacts may have been exposed to the virus and need to quarantine. If the test is negative, you likely do not have COVID-19 at this time, but you still may have a different illness that can spread to other people (like Influenza, or the Flu) and could still be at risk for getting COVID-19. We recommend that you stay away from other people to limit the spread of illness until your symptoms are improving and you are fever-free for 24 hours without the use of fever lowering medications such as acetaminophen or ibuprofen. No test is 100% accurate so if you are still concerned you may have COVID-19, talk to your doctor about the need to continue to stay away from others. Medicines Acetaminophen (Tylenol and others) is generally safe. Anti-inflammatory medications, such as Ibuprofen (Advil or Motrin) or Naproxen (Aleve) can also be used. Bsva-wdm-libxqwd cough and cold medicines can be used according to the instructions on the package. Some czdk-eei-pxsmvor medicines also contain acetaminophen. Make sure you are not taking more than your recommended dose For those not hospitalized, there is no specific treatment available for this illness. Antibiotics do not treat Coronaviruses. Follow-Up Follow up with your doctor by scheduling a virtual visit or consider follow-up at one of our urgent care fever clinics. If you are having difficulty breathing, or are very weak and having difficulty standing, this is a medical emergency. Call 911 or have someone take you to the nearest emergency room immediately. If possible, wear a facemask. Additional guidance from the CDC for patients who tested POSITIVE for COVID-19 How to isolate: Isolate yourself in a specific room at home and limit your contact with others. Use a separate bathroom from other members of the household, when possible. Leave home only to get essential medical care. Do not go to work, school or public areas. Avoid using public transportation, ride-sharing, or taxis. Restrict contact with pets and other animals. If you must care for your pet or be around animals while you are sick, wash your hands before and after your interaction and wear a facemask. Make sure that shared spaces in the home have good airflow, such as by an air conditioner or an opened window, weather permitting. Personal Hygiene Procedures: Wear a face mask when in the same room as other people or pets. If a face mask interferes with your breathing, others should wear a mask when sharing space with you. Frequent hand-washing: wash your hands with soap and water for at least 20 seconds. If soap and water are not available, use alcohol-based hand cooking appliance repair technician. Avoid touching your eyes, nose, and mouth with unwashed hands. Household Hygiene Procedures: Avoid sharing personal household items such as dishes, glassware, cups, eating utensils, towels or bedding with other people or pets in your home. After use, these items should be washed with soap and hot water. Disinfect all high-touch surfaces every day with antibacterial cleaning solutions such as Lysol wipes, bleach, cleansers, etc. High-touch surfaces include tabletops, doorknobs, bathroom fixtures, toilets, phones, keyboards, tablets and bedside tables. Immediately clean any surfaces that may have blood, poop or body fluids on them, using antibacterial cleaning solutions such as Lysol wipes, bleach, cleansers, etc. If clothing or bedding come into contact with blood, poop or body fluids, they should be washed immediately. Follow the directions on the laundry detergent and clothing labels but hot water is recommended when possible. Stopping home isolation precautions: If possible, consult your doctor before stopping home isolation precautions. According to the CDC, you can discontinue home isolation precautions when you have met both of these criteria: Your fever and respiratory symptoms have been gone for 24 hours without the use of any medicines like ibuprofen (Motrin) and acetaminophen (Tylenol). It has been at least 10 days since your symptoms first appeared. If you are immunosuppressed OR you were admitted to the hospital for this, you should wait until it has been 14 days since your symptoms first appeared. Guidelines for Those Living With and/or Caring For Persons with COVID-19: Read and follow all the recommendations outlined in this handout. Do not permit visitors in the home unless there is an essential need. Wear a facemask when in the same room as the patient. Wear a facemask and gloves (disposable if available) when you touch or have contact with the patient's blood, poop, or body fluids including saliva, phlegm, nasal mucus, vomit or urine. Clean or throw away facemasks and gloves after use and wash your hands with soap and water. You will need to quarantine (stay away from others) for 14 days after your last contact with your family member with COVID-19. The person with COVID-19 is considered contagious 48 hours prior to symptoms beginning (or starting with the day of the positive test if they have no symptoms) for a total of 10 days. Additional resources: [facility] COVID Hotline at 1-902-2PDQNSS ( ). COVID-19 Careline at (availab le 24 hours per day, seven days a week if you or a loved one is experiencing anxiety related to the coronavirus pandemic). Clinical research opportunities: is conducting research studies to develop better testing and treatments for COVID. Do you want any information on how to participate Call [phone]. Websites: hospitals.org or www.CDC.gov Follow My Health / My [facility] (for other test results):[phone] Revised 01/15/2020 Electronic Signatures: [employer]SC[employer]ita [employer] (ADMIN) (Signature pending) Authored Last Updated: 12-Feb-2020 09:13 by PSCChiara [employer] (ADMIN) [facility] CORONAVIRUS 2019 BY PCRon DATE OF SYMPTOM ONSET [YYYYMMDD]? [id number] [facility] Comment on above: Order Comment: +COVI D CALLED TO DASIA WHITE , 02/12/2020 09:38 Performed By: #### C OV19 #### [facility] [address] [place] [id number] Lab Specimen Source Nasal, Nasopharyngeal [facility] Comment on above: Order Comment: +COVI D CALLED TO DASIA ARJUN , 02/12/2020 09:38 Performed By: #### C OV19 #### [facility] [address] [place] [address] Provider Note - ED v2on 01-28 Provider Note - ED v2 Provider Note - ED v2: Chart Review HISTORY OF PRESENTING ILLNESS ROBIN is a 44 year old Male and was seen by me at 11-Feb-2020 12:11. Triage Information: Most recent Vital Sign Value Date PAST MEDICAL HISTORY ATTESTATION: I have reviewed and confirmed nurse's/medic's notes for patient's medications, allergies, medical history, and surgical history ALLERGIES/INTOLERANCES : No Known Allergies HEALTH HISTORY: No documented data. OUTPATIENT MEDICATIONS: Home Medications Review Status for Reconciliation: Complete Med Status: No Current Medications SIGNIFICANT EVENTS: No documented data. RESULTS/VITAL SIGNS VITAL SIGNS: T PRBP SpO2O2(LPM) %FiO2 Method 11-Feb-2020 12:26:[id number] 5 97 MEDICAL DECISION MAKING/ED COURSE MDM/ED COURSE: This note was generated with voice recognition software and may contain errors including spelling, grammar, syntax, and misrecognization of what was dictated Chief Complaint COVID symptoms History of Present Illness Patient presents with COVID symptoms for approximately 3 days. Symptoms include sinus pressure, congestion, loss of taste and smell, and cough. Patient denies use of any nnhk-oyt-ivqsnlw medications at home prior to arrival for symptom management. Only time has made their symptoms worse or nothing makes them better. It should be noted that despite the Governors instructions to stay home if ill clear back in April that patient neglected this advice and exposed individuals at a basketball game on Tuesday to his illness. Review of Systems 10 systems reviewed negative with exception of history of present illness listed above Physical Examination General: Alert and oriented, No acute distress. Eye: Pupils are equal, round and reactive. HENT: Normocephalic Neck: Supple Respiratory: Respirations are non-labored, Symmetrical chest wall expansion Musculoskeletal: Normal range of motion, normal strength, no tenderness, no swelling. Integumentary: Mack, warm, dry, and Intact. Neurologic: Alert, Oriented, Normal sensory, Normal motor function. Cognition and Speech: Oriented, Speech clear and coherent. Psychiatric: Cooperative, Appropriate mood & affect. Impression and Plan Course: Worsening Plan: I reviewed the COVID-19 algorithm, reviewed the algorithm & symptoms with the patient, and counseled the patient on COVID-19 current recommendations. It was determined the patient's symptoms are consistent with need for testing for COVID-19, using proper PPE, we were able to obtain a nasal swab without incident. Patient is instructed to isolate at home until a negative test result is returned. Patient agrees with plan of care, questions were encouraged and answered. Patient does request oral antibiotics this time stating he has a sinus infection despite the unusual symptoms of loss of taste and smell associated with a sinus infection. This request was denied based on the scholastic advice not treating a sinus infection with oral antibiotics with the duration less than 10 days. Patient Instructions: COVID-19 CLINICAL IMPRESSION Diagnosis/Annotation: ED Dx Name:Acute upper respiratory infection Code:J06.9 Disposition: discharged Type: home ATTESTATION CRITICAL CARE TIME Is this a critically ill patient: no Electronic Signatures for Addendum Section: Arabella Rivera (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 / BUYER-[facility]) (Signed Addendum 12-Feb-2020 09:27) Positive results reported to patient. Reinforced CDC guidelines to quarantine for 10 days from start of symptoms. Encouraged fluids, rest and high quality nutrition. No questions. Electronic Signatures: Antonino Hicks (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 / BUYER-[facility]) (Signed 11-Feb-2020 12:33) Authored: HPI, PMH, Results/Vital Signs, MDM/ED Course, Clinical Impression, Attestation, Chart Review, Scores Last Updated: 12-Feb-2020 09:27 by Arabella Rivera (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 / BUYER-[facility]) [facility] Vital Signs Date Time Vital Sign Value Performing Clinician Kevin winkler 09-18-2024 10:00-0400 Body mass index (BMI) [Ratio] 37.64 kg/m2 Lawanda Guardado APRN.WAREHOUSE ORDER PICKER Work Phone: [facility] 09-18-2024 10:00-0400 Body temperature 97.5 [degF] Lawanda Guardado APRN.WAREHOUSE ORDER PICKER Work Phone: [facility] 09-18-2024 10:00-0400 Body weight 129.4 kg Lawanda Guardado APRN.WAREHOUSE ORDER PICKER Work Phone: [facility] 09-18-2024 10:00-0400 Diastolic blood pressure 102 mm[Hg] Lawanda Guardado APRN.WAREHOUSE ORDER PICKER Work Phone: [facility] 09-18-2024 10:00-0400 Heart rate 80 /min Lawanda Guarddao APRN.WAREHOUSE ORDER PICKER Work Phone: [facility] 09-18-2024 10:00-0400 Respiratory rate 14 /min Lawanda Guardado APRN.WAREHOUSE ORDER PICKER Work Phone: [facility] 09-18-2024 10:00-0400 SaO2% (BldA) [Mass fraction] 98 % Lawanda Sunitha 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 / 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 ORDER PICKER Work Phone: [facility] 09-18-2024 10:00-0400 Systolic blood pressure 146 mm[Hg] Lawanda Guardado APRN.WAREHOUSE ORDER PICKER Work Phone: [facility] 08-06-2024 12:44-0400 Diastolic blood pressure 85 mm[Hg] Benji Amado MD Work Phone: [facility] 08-06-2024 12:44-0400 Heart rate 71 /min Benji Amado MD Work Phone: [facility] 08-06-2024 12:44-0400 Systolic blood pressure 128 mm[Hg] Benji Amado MD Work Phone: [facility] 08-06-2024 12:35-0400 Body mass index (BMI) [Ratio] 41.3 kg/m2 Benji Amado MD Work Phone: [facility] 08-06-2024 12:35-0400 Body weight 142 kg Benji Amado MD Work Phone: [facility] 02-06-2024 16:23-0500 Body mass index (BMI) [Ratio] 40.66 kg/m2 Benji Amado MD Work Phone: [facility] 02-06-2024 16:23-0500 Body temperature 98.29 [degF] Benji Amado MD Work Phone: [facility] 02-06-2024 16:23-0500 Body weight 139.8 kg Benji Amado MD Work Phone: [facility] 02-06-2024 16:23-0500 Diastolic blood pressure 76 mm[Hg] Benji Amado MD Work Phone: [facility] 02-06-2024 16:23-0500 Heart rate 92 /min Benji Amado MD Work Phone: [facility] 02-06-2024 16:23-0500 Systolic blood pressure 114 mm[Hg] Benji Amado MD Work Phone: [facility] 10-20-2023 17:00-0400 Body mass index (BMI) [Ratio] 40.2 kg/m2 Benji Amado MD Work Phone: [facility] 10-20-2023 17:00-0400 Body temperature 97.9 [degF] Benji Amado MD Work Phone: [facility] 10-20-2023 17:00-0400 Body weight 138.2 kg Benji Amado MD Work Phone: [facility] 10-20-2023 17:00-0400 Diastolic blood pressure 87 mm[Hg] Benji Amado MD Work Phone: [facility] 10-20-2023 17:00-0400 Heart rate 84 /min Benji Amado MD Work Phone: [facility] 10-20-2023 17:00-0400 Respiratory rate 18 /min Benji Amado MD Work Phone: [facility] 10-20-2023 17:00-0400 SaO2% (BldA) [Mass fraction] 97 % Benji Amado MD Work Phone: [facility] 10-20-2023 17:00-0400 Systolic blood pressure 136 mm[Hg] Benji Amado MD Work Phone: [facility] 10-11-2023 16:36-0400 Body mass index (BMI) [Ratio] 40.69 kg/m2 Ted Uriostegui APRN.WAREHOUSE ORDER PICKER Work Phone: [facility] 10-11-2023 16:36-0400 Body temperature 98.29 [degF] Ted Uriostegui APRN.WAREHOUSE ORDER PICKER Work Phone: [facility] 10-11-2023 16:36-0400 Body weight 139.9 kg Ted Uriostegui APRN.WAREHOUSE ORDER PICKER Work Phone: [facility] 10-11-2023 16:36-0400 Diastolic blood pressure 87 mm[Hg] Ted Moody 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 / 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 ORDER PICKER Work Phone: [facility] 10-11-2023 16:36-0400 Heart rate 93 /min Ted Uriostegui 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 / 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 ORDER PICKER Work Phone: [facility] 10-11-2023 16:36-0400 Respiratory rate 20 /min Ted Uriostegui 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 / 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 ORDER PICKER Work Phone: [facility] 10-11-2023 16:36-0400 SaO2% (BldA) [Mass fraction] 97 % Ted Uriostegui 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 / 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 ORDER PICKER Work Phone: [facility] 10-11-2023 16:36-0400 Systolic blood pressure 151 mm[Hg] Ted Uriostegui 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 / 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 [employer] Work Phone: [facility] 08-04-2023 17:21-0400 Body height 185.4 cm Benji Amado MD Work Phone: [facility] 08-04-2023 17:21-0400 Body mass index (BMI) [Ratio] 40.93 kg/m2 Benji Amado MD Work Phone: [facility] 08-04-2023 17:21-0400 Body weight 140.71 kg Benji Amado MD Work Phone: [facility] 08-04-2023 17:21-0400 Diastolic blood pressure 85 mm[Hg] Benji Amdao MD Work Phone: [facility] 08-04-2023 17:21-0400 Heart rate 94 /min Benji Amado MD Work Phone: [facility] 08-04-2023 17:21-0400 Respiratory rate 16 /min Benji Amado MD Work Phone: [facility] 08-04-2023 17:21-0400 SaO2% (BldA) [Mass fraction] 97 % Benji Amdao MD Work Phone: [facility] 08-04-2023 17:21-0400 Systolic blood pressure 130 mm[Hg] Benji Amado MD Work Phone: [facility] 07-06-2023 16:28-0400 Body mass index (BMI) [Ratio] 40.02 kg/m2 Vani Athy PA-C Work Phone: [facility] 07-06-2023 16:28-0400 Body temperature 98.4 [degF] Vani Athy PA-C Work Phone: [facility] 07-06-2023 16:28-0400 Body weight 137.6 kg Vani Athy PA-C Work Phone: [facility] 07-06-2023 16:28-0400 Diastolic blood pressure 80 mm[Hg] Vani Athy PA-C Work Phone: [facility] 07-06-2023 16:28-0400 Heart rate 103 /min Vani Athy PA-C Work Phone: [facility] 07-06-2023 16:28-0400 Respiratory rate 21 /min Vani Athy PA-C Work Phone: [facility] 07-06-2023 16:28-0400 SaO2% (BldA) [Mass fraction] 98 % Vani Athy PA-C Work Phone: [facility] 07-06-2023 16:28-0400 Systolic blood pressure 152 mm[Hg] Vani Athy PA-C Work Phone: [facility] 06-22-2023 13:14-0400 Diastolic blood pressure 96 mm[Hg] Benji Amado MD Work Phone: [facility] 06-22-2023 13:14-0400 Heart rate 89 /min Benji Amado MD Work Phone: [facility] 06-22-2023 13:14-0400 Systolic blood pressure 149 mm[Hg] Benji Amado MD Work Phone: [facility] 06-22-2023 13:06-0400 Body mass index (BMI) [Ratio] 40.24 kg/m2 Benji Amado MD Work Phone: [facility] 06-22-2023 13:06-0400 Body temperature 98.1 [degF] Benji Amado MD Work Phone: [facility] 06-22-2023 13:06-0400 Body weight 138.35 kg Benji Amado MD Work Phone: [facility] 12-20-2022 12:47-0400 Diastolic blood pressure 76 mm[Hg] Benji Amado MD Work Phone: [facility] 12-20-2022 12:47-0400 Heart rate 77 /min Benji Amado MD Work Phone: [facility] 12-20-2022 12:47-0400 Systolic blood pressure 126 mm[Hg] Benji Amado MD Work Phone: [facility] 12-20-2022 12:37-0400 Body weight 127.01 kg Benji Amado MD Work Phone: [facility] 06-22-2022 11:38-0400 Body weight 133.36 kg Benji Amado MD Work Phone: [facility] 06-22-2022 11:38-0400 Diastolic blood pressure 78 mm[Hg] Benji Amado MD Work Phone: [facility] 06-22-2022 11:38-0400 Heart rate 88 /min Benji Amado MD Work Phone: [facility] 06-22-2022 11:38-0400 Respiratory rate 18 /min Benji Amado MD Work Phone: [facility] 06-22-2022 11:38-0400 Systolic blood pressure 126 mm[Hg] Benji Amado MD Work Phone: [facility] 03-22-2022 15:59-0500 Body height 185.4 cm Benji Amado MD Work Phone: [facility] 03-22-2022 15:59-0500 Body temperature 97.81 [degF] Benji Amado MD Work Phone: [facility] 03-22-2022 15:59-0500 Body weight 127.01 kg Benji Amado MD Work Phone: [facility] 03-22-2022 15:59-0500 Diastolic blood pressure 74 mm[Hg] Benji Amado MD Work Phone: [facility] 03-22-2022 15:59-0500 Heart rate 76 /min Benji Amado MD Work Phone: [facility] 03-22-2022 15:59-0500 Respiratory rate 16 /min Benji Amado MD Work Phone: [facility] 03-22-2022 15:59-0500 Systolic blood pressure 136 mm[Hg] Benji Amado MD Work Phone: [facility] 09-07-2021 16:25-0400 Diastolic blood pressure 87 mm[Hg] Benji Amado MD Work Phone: [facility] 09-07-2021 16:25-0400 Heart rate 84 /min Benji Amado MD Work Phone: [facility] 09-07-2021 16:25-0400 Systolic blood pressure 134 mm[Hg] Benji Amado MD Work Phone: [facility] 09-07-2021 16:14-0400 Body temperature 97 [degF] Benji Amado MD Work Phone: [facility] 09-07-2021 16:14-0400 Body weight 131.54 kg Benji Amado MD Work Phone: [facility] 09-07-2021 16:14-0400 Respiratory rate 18 /min Benji Amado MD Work Phone: [facility] Encounters Encounter Date Encounter Type Care Provider Facility Start: 10-30-2024 ambulatory [facility] Facility:[facility] Start: 10-14-2024 End: 10-15-2024 ambulatory Benji Amado MD Work Phone: [facility] [place] Comment on above: Sinus infection Start: 10-08-2024 End: 10-08-2024 ambulatory LAWANDA Angel SUNITHA Facility:[facility] Start: 09-18-2024 End: 09-19-2024 Follow-up encounter Lawanda Angel Sunitha [employer] Work Phone: [facility] Start: 09-18-2024 End: 09-18-2024 ambulatory LAWANDA M SUNITHA Facility:[facility] Start: 09-18-2024 End: 09-18-2024 Office outpatient visit 25 minutes Lawanda Guardado APRN.[employer]HOU[employer] Work Phone: [facility] [place] Comment on above: Acute kidney injury (Primary Dx); Essential hypertension; Controlled type 2 diabetes mellitus with stage 2 chronic kidney disease, without long-term current use of insulin (HCC); Dehydration Start: 08-07-2024 End: 08-08-2024 Refill Benji Amado MD Work Phone: [facility] Comment on above: Med Change Request Start: 08-07-2024 End: 08-07-2024 Telephone encounter Benji Amado MD Work Phone: [facility] Comment on above: Forms Start: 08-06-2024 End: 08-06-2024 Refill Benji Amado MD Work Phone: [facility] Comment on above: Med Change Request Start: 08-06-2024 End: 08-07-2024 Telephone encounter Benji Amado MD Work Phone: [facility] [place] Comment on above: Medication Problem Start: 08-06-2024 End: 08-06-2024 Patient encounter procedure Benji Amado MD Work Phone: [facility] [place] Comment on above: Controlled type 2 di abetes mellitus with stage 2 chronic kidney disease, without long-term current use of insulin (HCC) (Primary Dx); Screening for depression; Encounter for screening examination for other mental health and behavioral disorders; Essential hypertension; Obesity, Class III, BMI >= 40; Stasis dermatitis of both legs Start: 08-06-2024 End: 08-06-2024 ambulatory BENJI AMADO Facility:[facility] Start: 07-31-2024 End: 09-30-2024 Follow-up encounter Benji Amado MD Work Phone: [facility] [place] Start: 07-30-2024 End: 07-30-2024 ambulatory BENJI AMADO Facility:[facility] Start: 06-18-2024 End: 06-19-2024 Refill Benji Amado MD Work Phone: [facility] [place] Comment on above: Refill Request Start: 02-06-2024 End: 02-06-2024 ambulatory BENJI AMADO Facility:[facility] Start: 02-06-2024 End: 02-06-2024 Patient encounter procedure Benji Amado MD Work Phone: [facility] [place] Comment on above: Controlled type 2 di abetes mellitus with stage 2 chronic kidney disease, without long-term current use of insulin (HCC) (HCC) (Primary Dx); Essential hypertension; Chronic kidney disease, stage 2, mildly decreased GFR; Mixed hyperlipidemia; Bilateral leg edema Start: 01-23-2024 End: 01-23-2024 ambulatory BENJI AMADO Facility:[facility] Start: 10-25-2023 End: 10-25-2023 Telephone encounter Benji Amado MD Work Phone: [facility] [place] Comment on above: Results Start: 10-20-2023 End: 10-20-2023 Subsequent hospital visit by physician Nidia [facility] Work Phone: Radiology Comment on above: Bronchitis with whee zing [J40] Start: 10-20-2023 End: 10-20-2023 ambulatory BENJI AMADO Facility:[facility] Start: 10-20-2023 End: 10-20-2023 Patient encounter procedure Benji Amado MD Work Phone: [facility] [place] Comment on above: Bronchitis with whee zing (Primary Dx); Acute non-recurrent sinusitis, unspecified location Start: 10-11-2023 End: 10-11-2023 ambulatory BENJI AMADO Facility:[facility] Start: 10-11-2023 End: 10-11-2023 Patient encounter procedure Ted Uriostegui APRN.[employer]HOU[employer] Work Phone: [facility] Comment on above: Sinobronchitis (Prim laura Dx) Start: 08-23-2023 Refill Benji lester MD Work Phone: [facility] [place] Comment on above: Refill Request Start: 08-04-2023 End: 08-04-2023 Patient encounter procedure Benji Amado MD Work Phone: [facility] [place] Comment on above: Depressive disorder (Primary Dx); Essential hypertension; Controlled type 2 diabetes mellitus with stage 1 chronic kidney disease, without long-term current use of insulin (HCC) (HCC); Mixed hyperlipidemia; Anosmia Start: 07-15-2023 Refill Benji lester MD Work Phone: [facility] [place] Comment on above: Med Change Request Start: 07-06-2023 End: 07-06-2023 Subsequent hospital visit by physician Nidia [facility] Work Phone: Radiology Comment on above: Rib injury [S29.9XXA ] Start: 07-06-2023 End: 07-06-2023 Patient encounter procedure Vani Freedman PA-C Work Phone: [facility] Comment on above: Rib injury (Primary Dx) Start: 06-22-2023 End: 06-22-2023 Patient encounter procedure Benji Amado MD Work Phone: [facility] [place] Comment on above: Depressive disorder (Primary Dx); Gastroesophageal reflux disease, unspecified whether esophagitis present; Essential hypertension; Non-seasonal allergic rhinitis, unspecified trigger; Mixed hyperlipidemia; Controlled type 2 diabetes mellitus with stage 1 chronic kidney disease, without long-term current use of insulin (HCC) (HCC); Anosmia; Loss of libido Start: 06-15-2023 ambulatory Benji lester MD Work Phone: [facility] Comment on above: Bumps on nape of nec k Start: 03-09-2023 End: 03-09-2023 Subsequent hospital visit by physician Nidia [facility] Work Phone: Radiology Comment on above: SOB (shortness of br eath) [R06.02] Start: 01-27-2023 ambulatory Benji lester MD Work Phone: [facility] Comment on above: lisinopril 10 mg tab let Start: 12-27-2022 Orders Only Benji lester MD Work Phone: [facility] Comment on above: Controlled type 2 di abetes mellitus with stage 1 chronic kidney disease, without long-term current use of insulin (HCC) (Primary Dx); Mixed hyperlipidemia; Tendon cysts Results Start: 12-20-2022 End: 12-20-2022 Patient encounter procedure Benji Amado MD Work Phone: [facility] [place] Comment on above: Uncontrolled type 2 diabetes mellitus with hyperglycemia (HCC) (Primary Dx); Essential hypertension; Mixed hyperlipidemia; Chronic cough; Edema leg; Left elbow pain; Tendon cysts; Fatigue, unspecified type; Loss of libido Start: 06-25-2022 Telephone encounter Benji belle MD Work Phone: [facility] [place] Comment on above: Rx refill; not on cu rrent med list Start: 06-23-2022 Telephone encounter Jacqueline Boyd Comment on above: Medication Problem Start: 06-22-2022 End: 06-22-2022 Patient encounter procedure Benji Amado MD Work Phone: [facility] [place] Comment on above: Uncontrolled type 2 diabetes mellitus with hyperglycemia (HCC) (Primary Dx); Gastroesophageal reflux disease, unspecified whether esophagitis present; Essential hypertension; Non-seasonal allergic rhinitis, unspecified trigger; Need for vaccination Start: 05-24-2022 End: 05-24-2022 ambulatory Marcela Hernandez PA-C Work Phone: General Surgery Comment on above: Hyperplastic polyp o f sigmoid colon (Primary Dx); Hyperplastic rectal polyp Start: 05-24-2022 End: 05-24-2022 Telemedicine consultation with patient Marcela Hernandez PA-C Work Phone: [facility] Start: 03-26-2022 Telephone encounter Benji belle MD Work Phone: [facility] [place] Comment on above: Patient Update; Medi cation Problem Start: 03-23-2022 Telephone encounter Benji belle MD Work Phone: [facility] [place] Comment on above: Forms Start: 03-22-2022 End: 03-22-2022 Patient encounter procedure Benji Amado MD Work Phone: [facility] [place] Comment on above: Physical exam for ca mp (Primary Dx); Gastroesophageal reflux disease, unspecified whether esophagitis present; Special screening for malignant neoplasms, colon; Change in voice; Throat pain; Screening for colon cancer; Uncontrolled type 2 diabetes mellitus with hyperglycemia (HCC) Start: 02-28-2022 Refill Benji lester MD Work Phone: [facility] Comment on above: Refill Request Start: 01-11-2022 ambulatory Benji lester MD Work Phone: [facility] [place] Comment on above: Medication list Start: 12-29-2021 Refill Benji lester MD Work Phone: [facility] [place] Comment on above: Med Change Request Start: 12-28-2021 ambulatory Med Garcia [facility] Work Phone: [facility] Comment on above: [employer] Card Start: 12-28-2021 E-mail encounter fro m caregiver Med Garcia [facility] Work Phone: [facility] Start: 12-24-2021 Telephone encounter Benji belle MD Work Phone: [facility] Comment on above: Patient Update Start: 09-07-2021 End: 09-07-2021 Patient encounter procedure Benji Amado MD Work Phone: [facility] [place] Comment on above: Essential hypertensi on (Primary Dx); Mixed hyperlipidemia; Uncontrolled type 2 diabetes mellitus with hyperglycemia (HCC) Start: 05-19-2021 Telephone encounter Med Garcia [facility] Work Phone: [facility] Comment on above: Missed Appointment Procedures Date Procedure Procedure Detail Performing Clinician Start: 08-06-2024 Adult depression scr eening assessment Benji Amado MD Work Phone: Start: 10-20-2023 Radiologic exam ches t 2 views Benji Amado MD Work Phone: Start: 07-06-2023 Radex ribs uni w/posteroant ch minimum 3 views Vani Freedman PA-C Work Phone: Start: 06-25-2023 Adult depression scr eening assessment Ted Uriostegui 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 / 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 [employer]ER Work Phone: Start: 03-09-2023 Radiologic exam ches t 2 views Lilia Massey 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 / 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 [employer]ER Work Phone: Start: 05-17-2022 Colonoscopy Marcela sosa PA-C Work Phone: Start: 05-07-2021 Adult depression scr eening assessment Med [facility] Work Phone: Plan of Treatment Date Care Activity Detail Author Start: 06-22-2032 Urine microalbumin profile [facility] Start: 05-18-2027 Colonoscopy COLONOSCOPY [facility] Start: 05-18-2027 COLORECTAL CANCER SCREENING COLORECTAL CANCER SCREENING [facility] Start: 05-18-2027 Screening for malign ant neoplasm of colon [facility] Start: 10-08-2025 Creatinine measurement Serum Creatin ine [facility] Start: 09-18-2025 Annual PCP Team [employer] [facility]andra Disease Visit Annual PCP Team Chronic Disease Visit [facility] Start: 09-18-2025 Creatinine measurement Serum Creatin ine [facility] Start: 09-11-2025 Complete blood count Hemoglobin/Socrates tocrit [facility] Start: 09-11-2025 Hepatitis B screening Urine Al bumin:Creatinine Ratio [facility] Start: 08-06-2025 Annual PCP Team [employer] casandra Disease Visit Annual PCP Team Chronic Disease Visit [facility] Start: 08-06-2025 Anxiety Screening Anxiety Screening [facility] Start: 08-06-2025 Depression Screening Depression Scre ening [facility] Start: 07-30-2025 Creatinine measurement Serum Creatin ine [facility] Start: 07-30-2025 Hepatitis B screening Urine Al bumin:Creatinine Ratio [facility] Start: 02-05-2025 Annual PCP Team [employer] casandra Disease Visit Annual PCP Team Chronic Disease Visit [facility] Start: 02-05-2025 BP Controlled (<130/80) BP Controlle d (<130/80) [facility] Start: 02-05-2025 Covid-19 Vaccine () Covid-19 Vaccine () [facility] Comment on above: Postponed from 10/29 (Declined at this time) Start: 02-05-2025 Diabetic foot examination Diabetic Foot Exam [facility] Start: 01-24-2025 Glaucoma screening Dilated Retinal E xam [facility] Start: 01-22-2025 Creatinine measurement Serum Creatin ine [facility] Start: 01-22-2025 Hepatitis B screening Urine Al bumin:Creatinine Ratio [facility] Start: 01-22-2025 Hepatitis B surface antibody level LDL Cholesterol [facility] Start: 12-13-2024 Hemoglobin A1c measurement HbA1C [facility] Start: 11-01-2024 End: 11-01-2024 Patient encounter procedure 11/01/2024 4:20 PM EDT Office Visit [facility] [address] [place], [place] [address] Benji Amado MD [address] [place] [address] 3 month follow-up [facility] Comment on above: 3 month follow-up Start: 10-30-2024 Hemoglobin A1c measurement HbA1C [facility] Start: 10-29-2024 Influenza vaccination C [facility] Start: 10-19-2024 Annual PCP Team Ch[employer] Driller casandra Disease Visit Annual PCP Team Chronic Disease Visit [facility] Start: 10-02-2024 End: 01-01-2025 Basic metabolic 2000 panel - Serum or Plasma BASIC METABOLIC PANEL Lab Routine Acute kidney injury Expected: 10/02/2024 (Approximate), Expires: 01/01/2025 [facility] Work Phone: Comment on above: Expected: 10/02/2024 (Approximate), Expires: 01/01/2025 Start: 08-27-2024 Influenza vaccination Influenza Vacc ine (#1) [facility] Comment on above: Postponed from 10/29 (Declined at this time) Start: 08-06-2024 End: 11-05-2024 Basic metabolic 2000 panel - Serum or Plasma BASIC METABOLIC PANEL Lab Routine Controlled type 2 diabetes mellitus with stage 2 chronic kidney disease, without long-term current use of insulin (HCC) (HCC) Expected: 08/06/2024, Expires: 11/05/2024 [facility] [employer] Work Phone: Comment on above: Expected: 08/06/2024 , Expires: 11/05/2024 Start: 08-06-2024 End: 11-05-2024 CBC panel - Blood by Automated count COMPLETE BLOOD COUNT Lab Routine Essential hypertension Expected: 08/06/2024, Expires: 11/05/2024 [facility] Comment on above: Expected: 08/06/2024 , Expires: 11/05/2024 Start: 08-06-2024 End: 11-05-2024 Hemoglobin A1c in Blood HEMOGLOBIN A1C Lab Routine Controlled type 2 diabetes mellitus with stage 2 chronic kidney disease, without long-term current use of insulin (HCC) (HCC) Expected: 08/06/2024, Expires: 11/05/2024 [facility] Comment on above: Expected: 08/06/2024 , Expires: 11/05/2024 Start: 08-06-2024 End: 11-05-2024 Microalbumin/Creatinine [Mass Ratio] in Urine ALBUMIN/CREATININE RATIO, URINE Lab Routine Controlled type 2 diabetes mellitus with stage 2 chronic kidney disease, without long-term current use of insulin (HCC) (HCC) Expected: 08/06/2024, Expires: 11/05/2024 [facility] Comment on above: Expected: 08/06/2024 , Expires: 11/05/2024 Start: 08-06-2024 End: 08-06-2024 Patient encounter procedure 08/06/2024 12:40 PM EDT Office Visit [facility] [address] [place] [id number] Benji Amado MD [address] [place] [address] follow up 6 months [facility] Comment on above: follow up 6 months Start: 08-03-2024 Annual PCP Team Ch[employer] casandra Disease Visit Annual PCP Team Chronic Disease Visit [facility] Start: 07-22-2024 Hemoglobin A1c measurement HbA1C [facility] Start: 06-24-2024 Anxiety Screening Anxiety Screening [facility] Start: 06-24-2024 Depression Screening Depression Scre ening [facility] Start: 06-21-2024 Annual PCP Team Ch[employer] casandra Disease Visit Annual PCP Team Chronic Disease Visit [facility] Start: 06-21-2024 Covid-19 Vaccine () Covid-19 Vaccine () [facility] Comment on above: Postponed from 10/29 (Declined at this time) Start: 06-21-2024 Creatinine measurement Serum Creatin ine [facility] Start: 06-21-2024 Hepatitis B surface antibody level LDL Cholesterol [facility] Start: 02-06-2024 End: 02-06-2024 Patient encounter procedure 02/06/2024 4:20 PM EST Office Visit [facility] [address] [place] [address] Benji Amado MD [address] [place] [address] 6 Month F/U [facility] Comment on above: 6 Month F/U Start: 02-03-2024 End: 05-04-2024 Basic metabolic 2000 panel - Serum or Plasma BASIC METABOLIC PANEL Lab Routine Controlled type 2 diabetes mellitus with stage 1 chronic kidney disease, without long-term current use of insulin (HCC) (HCC) Expected: 02/03/2024, Expires: 05/04/2024 [facility] Work Phone: Comment on above: Expected: 02/03/2024 , Expires: 05/04/2024 Start: 02-03-2024 End: 05-04-2024 Hemoglobin A1c in Blood HEMOGLOBIN A1C Lab Routine Controlled type 2 diabetes mellitus with stage 1 chronic kidney disease, without long-term current use of insulin (HCC) (HCC) Expected: 02/03/2024, Expires: 05/04/2024 [facility] Comment on above: Expected: 02/03/2024 , Expires: 05/04/2024 Start: 02-03-2024 End: 05-04-2024 Lipid 1996 panel - Serum or Plasma LIPID PANEL BASIC Lab Routine Mixed hyperlipidemia Expected: 02/03/2024, Expires: 05/04/2024 [facility] Comment on above: Expected: 02/03/2024 , Expires: 05/04/2024 Start: 02-03-2024 End: 05-04-2024 Microalbumin/Creatinine [Mass Ratio] in Urine ALBUMIN/CREATININE RATIO, URINE Lab Routine Controlled type 2 diabetes mellitus with stage 1 chronic kidney disease, without long-term current use of insulin (HCC) (HCC) Expected: 02/03/2024, Expires: 05/04/2024 [facility] Comment on above: Expected: 02/03/2024 , Expires: 05/04/2024 Start: 01-26-2024 Glaucoma screening Dilated Retinal E xam [facility] Start: 01-26-2024 Hepatitis C antibody , confirmatory test Dilated Retinal Exam [facility] Start: 12-25-2023 Complete blood count Hemoglobin/Socrates tocrit [facility] Start: 12-25-2023 Creatinine measurement Serum Creatin ine [facility] Start: 12-25-2023 Hepatitis B screening Urine Al bumin:Creatinine Ratio [facility] Start: 12-25-2023 Serum Creatinine Serum Creatinine Cl [facility] Start: 12-22-2023 Hemoglobin A1c measurement HbA1C [facility] Start: 12-21-2023 3 comp foot exam completed Diabetic Foot Exam [facility] Start: 12-21-2023 Annual PCP Team Ch[employer] Driller casandra Disease Visit Annual PCP Team Chronic Disease Visit [facility] Start: 12-21-2023 BP Controlled (<130/80) BP Controlle d (<130/80) [facility] Start: 12-21-2023 Diabetic foot examination Diabetic Foot Exam [facility] Start: 10-30-2023 Covid-19 Vaccine ( season) Covid-19 Vaccine () [facility] Start: 10-30-2023 Influenza vaccination C [facility] Start: 08-28-2023 Influenza vaccination Influenza Vacc ine (#1) [facility] Comment on above: Postponed from 10/29 (Declined at this time) Start: 08-04-2023 End: 08-04-2023 Patient encounter procedure 08/04/2023 5:20 PM EDT Office Visit [facility] [address] [facility] [place] [address] Benji Amado MD [address] [place] [address] 6 week follow-up [facility] Comment on above: 6 week follow-up Start: 06-25-2023 Hemoglobin A1c measurement HbA1C [facility] Start: 06-25-2023 Hemoglobin A1c/Hemoglobin.total in Blood HbA1C [facility] Start: 06-23-2023 ANNUAL PCP TEAM INFRASTRUCTURE SOFTWARE ENGINEER CASANDRA DISEASE VISIT ANNUAL PCP TEAM CHRONIC DISEASE VISIT [facility] Start: 06-23-2023 BP CONTROLLED (<130/80) BP CONTROLLE D (<130/80) [facility] Start: 06-15-2023 End: 09-14-2023 Comprehensive metabolic 2000 panel - Serum or Plasma COMP METABOLIC PANEL Lab Routine Controlled type 2 diabetes mellitus with stage 1 chronic kidney disease, without long-term current use of insulin (HCC) Expected: 06/15/2023, Expires: 09/14/2023 [facility] Work Phone: Comment on above: Expected: 06/15/2023 , Expires: 09/14/2023 Start: 06-15-2023 End: 09-14-2023 Hemoglobin A1c in Blood HGB A1C Lab Routine Controlled type 2 diabetes mellitus with stage 1 chronic kidney disease, without long-term current use of insulin (HCC) Expected: 06/15/2023, Expires: 09/14/2023 [facility] Work Phone: Comment on above: Expected: 06/15/2023 , Expires: 09/14/2023 Start: 06-15-2023 End: 09-14-2023 Lipid 1996 panel - Serum or Plasma LIPID PANEL BASIC Lab Routine Mixed hyperlipidemia Expected: 06/15/2023, Expires: 09/14/2023 [facility] Work Phone: Comment on above: Expected: 06/15/2023 , Expires: 09/14/2023 Start: 06-15-2023 End: 09-14-2023 Urate [Mass/volume] in Serum or Plasma URIC ACID BLOOD Lab Routine Tendon cysts Expected: 06/15/2023, Expires: 09/14/2023 [facility] Work Phone: Comment on above: Expected: 06/15/2023 , Expires: 09/14/2023 Start: 03-22-2023 3 comp foot exam completed DIABETIC FOOT EXAM [facility] Start: 03-22-2023 ANNUAL PCP TEAM INFRASTRUCTURE SOFTWARE ENGINEER CASANDRA DISEASE VISIT ANNUAL PCP TEAM CHRONIC DISEASE VISIT [facility] Start: 03-22-2023 COVID-19 VACCINE (#1) COVID-19 VACCI NE (#1) [facility] Comment on above: Postponed from 08/16 (Declined at this time) Start: 03-18-2023 Hepatitis B surface antibody level LDL CHOLESTEROL [facility] Start: 02-28-2023 Behavioral Health Screening Behavioral Health Screening [facility] Start: 12-21-2022 End: 03-22-2023 ALBUMIN/CREAT RATIO RND UR ALBUMIN/CREAT RATIO RND UR Lab Routine Uncontrolled type 2 diabetes mellitus with hyperglycemia (HCC) Expected: 12/21/2022, Expires: 03/22/2023 [facility] Work Phone: Comment on above: Expected: 12/21/2022 , Expires: 03/22/2023 Start: 12-21-2022 End: 03-22-2023 Basic metabolic 2000 panel - Serum or Plasma BASIC METABOLIC PNL Lab Routine Uncontrolled type 2 diabetes mellitus with hyperglycemia (HCC) Expected: 12/21/2022, Expires: 03/22/2023 [facility] Work Phone: Comment on above: Expected: 12/21/2022 , Expires: 03/22/2023 Start: 12-21-2022 End: 03-22-2023 CBC panel - Blood by Automated count CBC Lab Routine Fatigue, unspecified type Expected: 12/21/2022, Expires: 03/22/2023 [facility] Work Phone: Comment on above: Expected: 12/21/2022 , Expires: 03/22/2023 Start: 12-21-2022 End: 03-22-2023 Hemoglobin A1c in Blood HGB A1C Lab Routine Uncontrolled type 2 diabetes mellitus with hyperglycemia (HCC) Expected: 12/21/2022, Expires: 03/22/2023 [facility] Work Phone: Comment on above: Expected: 12/21/2022 , Expires: 03/22/2023 Start: 12-21-2022 End: 03-22-2023 Testosterone [Mass/volume] in Serum or Plasma TESTOSTERONE TOTAL Lab Routine Fatigue, unspecified type Loss of libido Expected: 12/21/2022, Expires: 03/22/2023 [facility] Work Phone: Comment on above: Expected: 12/21/2022 , Expires: 03/22/2023 Start: 11-06-2022 Hepatitis C antibody , confirmatory test DILATED RETINAL EXAM [facility] Start: 10-29-2022 Covid-19 Vaccine ( season) Covid-19 Vaccine ( season) [facility] Start: 10-29-2022 Influenza vaccination INFLUENZA (Sea son Ended) [facility] Start: 09-21-2022 Hemoglobin A1c/Hemoglobin.total in Blood HBA1C [facility] Start: 09-07-2022 ANNUAL PCP TEAM INFRASTRUCTURE SOFTWARE ENGINEER CASANDRA DISEASE VISIT ANNUAL PCP TEAM CHRONIC DISEASE VISIT [facility] Start: 09-01-2022 Hepatitis B surface antibody level LDL CHOLESTEROL [facility] Start: 08-27-2022 Influenza vaccination INFLUENZA (#1) [facility] Comment on above: Postponed from 10/29 (Declined at this time) Start: 06-20-2022 End: 08-20-2022 ALBUMIN/CREAT RATIO RND UR ALBUMIN/CREAT RATIO RND UR Lab Routine Uncontrolled type 2 diabetes mellitus with hyperglycemia (HCC) Expected: 06/20/2022, Expires: 08/20/2022 [facility] Work Phone: Comment on above: Expected: 06/20/2022 , Expires: 08/20/2022 Start: 06-20-2022 End: 08-20-2022 Basic metabolic 2000 panel - Serum or Plasma BASIC METABOLIC PNL Lab Routine Uncontrolled type 2 diabetes mellitus with hyperglycemia (HCC) Expected: 06/20/2022, Expires: 08/20/2022 [facility] Work Phone: Comment on above: Expected: 06/20/2022 , Expires: 08/20/2022 Start: 06-20-2022 End: 08-20-2022 Hemoglobin A1c in Blood HGB A1C Lab Routine Uncontrolled type 2 diabetes mellitus with hyperglycemia (HCC) Expected: 06/20/2022, Expires: 08/20/2022 [facility] Work Phone: Comment on above: Expected: 06/20/2022 , Expires: 08/20/2022 Start: 06-16-2022 Hemoglobin A1c/Hemoglobin.total in Blood HBA1C [facility] Start: 05-07-2022 Adult depression screening assessment DEPRESSION SCREENING [facility] Start: 05-07-2022 ANNUAL PCP TEAM INFRASTRUCTURE SOFTWARE ENGINEER CASANDRA DISEASE VISIT ANNUAL PCP TEAM CHRONIC DISEASE VISIT [facility] Start: 05-07-2022 ONE PNEUMOVAX PRIOR TO AGE 65 ONE PNEUMOVAX PRIOR TO AGE 67 [facility] Comment on above: Postponed from 02/15 (Declined at this time) Start: 05-07-2022 PNEUMOCOCCAL (1 - PCV) PNEUMOCOCCAL (1 - PCV) [facility] Comment on above: Postponed from 02/15 (Declined at this time) Start: 03-10-2022 End: 05-10-2022 Comprehensive metabolic 2000 panel - Serum or Plasma COMP METABOLIC PANEL Lab Routine Uncontrolled type 2 diabetes mellitus with hyperglycemia (HCC) Expected: 03/10/2022, Expires: 05/10/2022 [facility] Work Phone: Comment on above: Expected: 03/10/2022 , Expires: 05/10/2022 Start: 03-10-2022 End: 05-10-2022 Hemoglobin A1c in Blood HGB A1C Lab Routine Uncontrolled type 2 diabetes mellitus with hyperglycemia (HCC) Expected: 03/10/2022, Expires: 05/10/2022 [facility] Work Phone: Comment on above: Expected: 03/10/2022 , Expires: 05/10/2022 Start: 03-10-2022 End: 05-10-2022 Lipid 1996 panel - Serum or Plasma LIPID PANEL BASIC Lab Routine Mixed hyperlipidemia Expected: 03/10/2022, Expires: 05/10/2022 [facility] Work Phone: Comment on above: Expected: 03/10/2022 , Expires: 05/10/2022 Start: 03-04-2022 Hemoglobin A1c/Hemoglobin.total in Blood HBA1C [facility] Start: 02-28-2022 [facility] Start: 2022 COLOGUARD (FIT-DNA) COLOGUARD (FIT-D NA) [facility] Start: 2022 Colonoscopy COLONOSCOPY [facility] Start: 2022 COLORECTAL CANCER SCREENING COLORECTAL CANCER SCREENING [facility] Start: [address] COLONOGRAPHY [facility] Start: 2022 FECAL OCCULT BLOOD FECAL OCCULT BLOO D [facility] Start: 2022 Screening for malign ant neoplasm of colon [facility] Start: 2022 SIGMOIDOSCOPY SIGMOIDOSCOPY [facility] Start: 01-05-2022 3 comp foot exam completed DIABETIC FOOT EXAM [facility] Start: 12-23-2021 Hepatitis B surface antibody level LDL CHOLESTEROL [facility] Start: 10-29-2021 Influenza vaccination INFLUENZA (#1) [facility] Start: 09-22-2021 Hemoglobin A1c/Hemoglobin.total in Blood HBA1C [facility] Start: 09-07-2021 End: 11-07-2021 ALBUMIN/CREAT RATIO RND UR ALBUMIN/CREAT RATIO RND UR Lab Routine Uncontrolled type 2 diabetes mellitus with hyperglycemia (HCC) Expected: 09/07/2021, Expires: 11/07/2021 [facility] Work Phone: Comment on above: Expected: 09/07/2021 , Expires: 11/07/2021 Start: 08-27-2021 Influenza vaccination INFLUENZA (#1) [facility] Comment on above: Postponed from 10/29 (Declined at this time) Start: 02-28-2021 DEPRESSION ASSESSMENT DEPRESSION ASS ESSMENT [facility] Start: 02-16-1996 HEPATITIS B (1 of 3 - Risk 3-dose series) HEPATITIS B (1 of 3 - Risk 3-dose series) [facility] Start: 02-16-1996 Urine microalbumin profile DTAP,TDAP,TD (1 - Tdap) [facility] Start: 1995 BP CONTROLLED (<130/80) BP CONTROLLE D (<130/80) [facility] Start: 1995 zzBP Controlled (<130/80) (Retired) zzBP Controlled (<130/80) (Retired) [facility] Start: 1987 Hepatitis B screening URINE AL BUMIN:CREATININE RATIO [facility] Start: 1987 Hepatitis C antibody , confirmatory test DILATED RETINAL EXAM [facility] Start: 1983 PNEUMOCOCCAL (1 - PCV) PNEUMOCOCCAL (1 - PCV) [facility] Start: 1982 COVID-19 VACCINE (1) COVID-19 VACCIN E (1) [facility] Start: 1977 COVID-19 VACCINE (#1) COVID-19 VACCI NE (#1) [facility] Start: 1977 HEPATITIS B (1 of 3 - 3-dose series) HEPATITIS B (1 of 3 - 3-dose series) [facility] End: 03-22-2023 Screening colonoscopy COLONOSCOPY SCREENING Endoscopy Routine Special screening for malignant neoplasms, colon 1 Occurrences starting 03/22/2022 until 03/22/2023 [facility] Work Phone: Comment on above: 1 Occurrences starti ng 03/22/2022 until 03/22/2023 End: 11-18-2024 XR Chest PA and Lateral XR CHEST 2V FRONTAL/LAT Radiology Routine Bronchitis with wheezing 1 Occurrences starting 10/20/2023 until 11/18/2024 [facility] Work Phone: Comment on above: 1 Occurrences starti ng 10/20/2023 until 11/18/2024 XR Chest PA and Lateral XR CHEST 2V FRONTAL/LAT Radiology Routine Bronchitis with wheezing 10/20/2023 6:02 PM EDT [facility] Immunizations Immunization Date Immunization Notes Care Provider Fa prem 06-22-2022 tetanus toxoid, redu kelby diphtheria toxoid, and acellular pertussis vaccine, adsorbed Benji Amado MD Work Phone: [facility] Work Phone: 01-28-2019 influenza, seasonal, injectable [facility] Work Phone: [facility] Work Phone: 01-28-2019 influenza virus vaccine, unspecified formulation Benji Amado MD Work Phone: [facility] Payers Date Payer Category Payer [employer] ( and others) [id number] 2024 Self-pay 2021 Private Health Insurance [facility] CHOICE PLUS [id number] 2021-Present [phone] [address] [address] [place] [address] PPO [id number] 2021 Private Health Insurance [id number] 2021 Unknown [id number] 2021 Unknown [id number] Unknown [id number] Social History Date Type Detail Facility Start: 09-11-2015 End: 03-22-2022 Tobacco smoking status NDIS Never smoked tobacco [facility] Start: 09-11-2015 End: 03-22-2022 Tobacco use and exposure Smokeless tobacco non-user [facility] Start: 05-07-2021 End: 09-18-2024 Alcohol intake Current drinker of alcohol (finding) [facility] Start: 02-04-2021 History SDOH Alcohol Frequency 3 [facility] Start: 02-04-2021 History SDOH Alcohol Std Drinks 2 [facility] Start: 02-04-2021 History SDOH Alcohol Binge 1 [facility] Start: 02-04-2021 History SDOH Social Connections Phone 4 [facility] Start: 02-04-2021 History SDOH Financial 5 [facility] Start: 1975 Sex Assigned At Male [facility] Start: 04-27-2021 End: 05-07-2021 Exposure to SARS-CoV-2 (event) Yes [facility] Work Phone: Start: 08-28-2021 End: 09-07-2021 Exposure to SARS-CoV-2 (event) Not sure [facility] Work Phone: Start: 02-04-2021 End: 12-20-2022 History of Social function [facility] Start: 02-04-2021 End: 12-20-2022 Social connection and isolation panel [facility] Are you now , , , , never or living with a partner? [facility] How often to you hav e a drink containing alcohol? 2-4 times a month [facility] How many standard drinks containing alcohol do you have on a typical day? 3 or 4 [facility] How often do you hav e 6 or more drinks on 1 occasion? Never [facility] Start: 09-11-2015 How hard is it for y ou to pay for the very basics like food, housing, medical care, and heating Not hard at all [facility] Do you feel stress - tense, restless, nervous, or anxious, or unable to sleep at night because your mind is troubled all the time - these days [OSQ] Not at all [facility] (I/We) worried wheth er (my/our) food would run out before (I/we) got money to buy more. Never true [facility] In the past 12 month s, was there a time when you were not able to pay the mortgage or rent on time? No [facility] Start: 12-22-2020 Gender identity Identifies as male gender (finding) [facility] Start: 12-22-2020 Sexual orientation Heterosexual (eliana lópez) [facility] Medical Equipment Procedure Code Equipment Code Equipment Origin al Text Equipment Identifier Dates Test blood sugar (s) 2 times daily. Dx: Type 2 DM - Uncontrolled E11.65 Insulin: No [id number], [id number] Start: 01-05-2021 End: 10-20-2023 Comment on above: Test blood sugar(s) 2 times daily. Dx: Type 2 DM - Uncontrolled E11.65 Insulin: No Clinical Notes 05-19-2021 to 09-19-2024 Telephone Encounter - Ann De Leon RN - 09/19/2024 10:40 AM EDTTelephone Encounter - Ann De Leon RN - 09/19/2024 10:40 AM EDTPatient Benji Tyson MD - 08/06/2024 1:05 PM EDT Note Date & Type Note Facility 09-19-2024 Telephone encounter Note Patient calling in and given provider's message as stated in [employer]. Pt verbalized understanding. Ann De Leon RN [facility] 09-19-2024 Miscellaneous Notes Patient calling in and given provider's message as stated in [employer]. Pt verbalized understanding. Ann De Leon RN documented in this encounter [facility] 09-18-2024 Instructions Lawanda Guardado, MICHELET.WAREHOUSE ORDER PICKER - 09/18/2024 10:31 AM EDT We discussed your recent hospitalization for acute renal failure caused by severe dehydration: - Your dehydration was due to nausea, vomiting, and diarrhea during a hike. This, combined with the medications you were taking (losartan, metformin, Victoza, Actos, and ibuprofen), contributed to your kidney injury. These medications were held during your hospital stay and remain on hold until further evaluation. - Your creatinine levels improved during your hospital stay, but they were still elevated at discharge (9.35 on 09/18). We will recheck your creatinine levels today to assess your kidney function. - Depending on your lab results, we may restart your medications if your kidney function is close to your baseline. I will call you with the results and provide further instructions. We discussed your blood pressure: - Your blood pressure today was elevated (146/102), but this is likely due to being off your medications. We will not adjust your medication doses until your kidney function is reassessed. Next steps: - Please complete your blood draw today as planned. I will review the results and call you within an hour to discuss your creatinine levels and next steps for your medications. - If your kidney function does not improve or worsens, we may consider a referral to a kidney specialist. Please continue to stay hydrated and avoid strenuous activities in extreme heat to prevent further dehydration. Let me know if you have any questions or concerns. documented in this encounter [facility] 09-18-2024 Note HNO ID: [id number] Author: LAWANDA GUARDADO APRN.CNP Service: ? Author Type: Nurse Practitioner Type: Progress Notes Filed: 09/18/2024 10:34 Note Text: CC: Patient presents with: Hospital F/U: [place]: ARF (acute renal failure) ([facility]) Acute renal failure HPI Recording using Atlas Local software for draft documentation of the visit was discussed with the patient/authorized senior patient account representative; all questions welcomed and answered. Patient/authorized senior patient account representative agreed to proceed Robin Fernández is a 49-year-old male with a history of CKD, HTN, and DM, presenting for follow-up after a recent hospitalization for acute renal failure secondary to severe dehydration. Robin was hiking on the [place] with his son when he encountered a 10-mile stretch with no water sources and temperatures reaching 101?F. He reports being exposed to the sun continuously and experiencing a 2,000-foot elevation gain. He was not prepared for the conditions and became severely dehydrated, leading to significant diarrhea, nausea, and emesis. He hitchhiked to a hotel, where he was ill for 2 days before presenting to a hospital. He was found to have a creatinine level greater than 15 and was transferred to a larger hospital in [place] for acute care. He was treated with a bicarbonate drip and later transitioned to lactated Ringer's solution. His creatinine levels slowly improved, and he was discharged on 09/18 with a creatinine level of 9.35. During his hospitalization, his medications, including losartan, metformin, Victoza, and Actos, were held. He was advised to continue holding these medications until today's follow-up. He has not resumed any of his medications, except for one taken last night for heartburn, due to the labels on his medication bags becoming illegible. He denies any further episodes of diarrhea and reports feeling perfect and back to his normal state. He has been hydrating with water but has not been using electrolyte solutions. He does not monitor his blood glucose levels or blood pressure at home. Review of Systems Constitutional: Negative for chills, diaphoresis, fatigue and fever. Respiratory: Negative for shortness of breath. Cardiovascular: Negative for chest pain, palpitations and leg swelling. Neurological: Negative for dizziness, syncope, weakness, light-headedness and headaches. PAST MEDICAL HISTORY Diagnosis Date Anosmia 07/02/2020 COVID-19 02/08/2020 Essential hypertension 07/03/2020 Gastroesophageal reflux disease 12/22/2020 Hypertension 2010 Mixed hyperlipidemia 05/07/2021 Non-seasonal allergic rhinitis 04/06/2019 Sleep apnea Uncontrolled type 2 diabetes mellitus with hyperglycemia (HCC) 12/22/2020 PAST SURGICAL HISTORY Procedure Laterality Date CARPAL TUNNEL Bilateral 2007 COLONOSCOPY SCREENING 05/17/2022 hyperplastic polyps x 2 ROTATOR CUFF REPAIR Left 2019 Dr. Yancey VASECTOMY UNI/BI SPX W/POSTOP SEMEN EXAMS 2007 ALLERGIES Environmental [Seasonal Allergies] MEDICATIONS liraglutide (VICTOZA) 0.6 mg/ 0.1 ml subcutaneous pen injector Inject 0.6 mg subcutaneously once daily. metFORMIN ER (GLUCOPHAGE XR) 500 mg 24 hr tablet Take 2 tablets by mouth two times a day before meals. pantoprazole DR (PROTONIX) 40 mg tablet Take 1 tablet by mouth daily before breakfast. Take on empty stomach, 1/2 hr before meal. pioglitazone (ACTOS) 15 mg tablet Take 1 tablet by mouth once daily. amLODIPine (NORVASC) 5 mg tablet Take 1 tablet by mouth once daily. losartan (COZAAR) 100 mg tablet Take 1 tablet by mouth once daily. fluticasone (FLONASE) 50 mcg/actuation nasal spray Use 2 Sprays in each nostril once daily. Rinse mouth after use. FAMILY HISTORY Problem Relation Age of Onset Hypertension Mother Blood Disease Mother leukemia Hypertension Father Coronary Artery Disease Father stented Ischemic Heart Disease Father CABG Arrythmias Brother Heart Brother 47 Valve replacement Diabetes Maternal Grandmother Coronary Artery Disease Maternal Grandmother Diabetes Maternal Grandfather Coronary Artery Disease Maternal Grandfather cabg Diabetes Paternal Grandfather Coronary Artery Disease Paternal Grandfather cabg Social History Tobacco Use Smoking status: Never Smokeless tobacco: Never Vaping Use Vaping status: Never Used Substance Use Topics Alcohol use: Yes Drug use: Never BP 146/102 Pulse 80 Temp 36.4 ?C (97.5 ?F) (Temporal) Resp 14 Wt 129.4 kg (285 lb 4.4 oz) SpO2 98% BMI 37.64 kg/m? Physical Exam Vitals reviewed. Constitutional: Appearance: Normal appearance. HENT: Mouth/Throat: Mouth: Mucous membranes are moist. Eyes: Conjunctiva/sclera: Conjunctivae normal. Cardiovascular: Rate and Rhythm: Normal rate and regular rhythm. Heart sounds: Normal heart sounds. No murmur heard. Pulmonary: Effort: Pulmonary effort is normal. Breath sounds: Normal breath sounds. No wheezing, rhonchi o (more content not included)... [facility] 09-18-2024 History of Presen t illness Narrative CC: Patient presents with: Hospital F/U: [place]: ARF (acute renal failure) ([facility]) Acute renal failure HPI Recording using [employer] Local software for draft documentation of the visit was discussed with the patient/authorized senior patient account representative; all questions welcomed and answered. Patient/authorized senior patient account representative agreed to proceed Robin Fernández is a 49-year-old male with a history of CKD, HTN, and DM, presenting for follow-up after a recent hospitalization for acute renal failure secondary to severe dehydration. Robin was hiking on the [place] with his son when he encountered a 10-mile stretch with no water sources and temperatures reaching 101 F. He reports being exposed to the sun continuously and experiencing a 2,000-foot elevation gain. He was not prepared for the conditions and became severely dehydrated, leading to significant diarrhea, nausea, and emesis. He hitchhiked to a hotel, where he was ill for 2 days before presenting to a hospital. He was found to have a creatinine level greater than 15 and was transferred to a larger hospital in [place] for acute care. He was treated with a bicarbonate drip and later transitioned to lactated Ringer's solution. His creatinine levels slowly improved, and he was discharged on 09/18 with a creatinine level of 9.35. During his hospitalization, his medications, including losartan, metformin, Victoza, and Actos, were held. He was advised to continue holding these medications until today's follow-up. He has not resumed any of his medications, except for one taken last night for heartburn, due to the labels on his medication bags becoming illegible. He denies any further episodes of diarrhea and reports feeling perfect and back to his normal state. He has been hydrating with water but has not been using electrolyte solutions. He does not monitor his blood glucose levels or blood pressure at home. Review of Systems Constitutional: Negative for chills, diaphoresis, fatigue and fever. Respiratory: Negative for shortness of breath. Cardiovascular: Negative for chest pain, palpitations and leg swelling. Neurological: Negative for dizziness, syncope, weakness, light-headedness and headaches. PAST MEDICAL HISTORY Diagnosis Date Anosmia 07/02/2020 COVID-19 02/08/2020 Essential hypertension 07/03/2020 Gastroesophageal reflux disease 12/22/2020 Hypertension 2010 Mixed hyperlipidemia 05/07/2021 Non-seasonal allergic rhinitis 04/06/2019 Sleep apnea Uncontrolled type 2 diabetes mellitus with hyperglycemia (HCC) 12/22/2020 PAST SURGICAL HISTORY Procedure Laterality Date CARPAL TUNNEL Bilateral 2007 COLONOSCOPY SCREENING 05/17/2022 hyperplastic polyps x 2 ROTATOR CUFF REPAIR Left 2019 Dr. Yancey VASECTOMY UNI/BI SPX W/POSTOP SEMEN EXAMS 2007 ALLERGIES Environmental [Seasonal Allergies] MEDICATIONS liraglutide (VICTOZA) 0.6 mg/ 0.1 ml subcutaneous pen injector Inject 0.6 mg subcutaneously once daily. metFORMIN ER (GLUCOPHAGE XR) 500 mg 24 hr tablet Take 2 tablets by mouth two times a day before meals. pantoprazole DR (PROTONIX) 40 mg tablet Take 1 tablet by mouth daily before breakfast. Take on empty stomach, 1/2 hr before meal. pioglitazone (ACTOS) 15 mg tablet Take 1 tablet by mouth once daily. amLODIPine (NORVASC) 5 mg tablet Take 1 tablet by mouth once daily. losartan (COZAAR) 100 mg tablet Take 1 tablet by mouth once daily. fluticasone (FLONASE) 50 mcg/actuation nasal spray Use 2 Sprays in each nostril once daily. Rinse mouth after use. FAMILY HISTORY Problem Relation Age of Onset Hypertension Mother Blood Disease Mother leukemia Hypertension Father Coronary Artery Disease Father stented Ischemic Heart Disease Father CABG Arrythmias Brother Heart Brother 47 Valve replacement Diabetes Maternal Grandmother Coronary Artery Disease Maternal Grandmother Diabetes Maternal Grandfather Coronary Artery Disease Maternal Grandfather cabg Diabetes Paternal Grandfather Coronary Artery Disease Paternal Grandfather cabg Social History Tobacco Use Smoking status: Never Smokeless tobacco: Never Vaping Use Vaping status: Never Used Substance Use Topics Alcohol use: Yes Drug use: Never BP 146/102 Pulse 80 Temp 36.4 C (97.5 F) (Temporal) Resp 14 Wt 129.4 kg (285 lb 4.4 oz) SpO2 98% BMI 37.64 kg/m Physical Exam Vitals reviewed. Constitutional: Appearance: Normal appearance. HENT: Mouth/Throat: Mouth: Mucous membranes are moist. Eyes: Conjunctiva/sclera: Conjunctivae normal. Cardiovascular: Rate and Rhythm: Normal rate and regular rhythm. Heart sounds: Normal heart sounds. No murmur heard. Pulmonary: Effort: Pulmonary effort is normal. Breath sounds: Normal breath sounds. No wheezing, rhonchi or rales. Skin: General: Skin is warm and dry. Neurological: Mental Status: He is alert. Psychiatric: Mood and Affect: Mood normal. I have reviewed the patient s records from [facility] in [place] including diagnostic testing performed, their discharge medications, and my assessment and plan with the patient and any family members present at today s visit. Assessment/Plan 1. Acute kidney injury (N17.9) Dehydration (E86.0) Acute renal failure secondary to severe dehydration from insufficient water intake during hiking. Initial creatinine >15, improved to 9.35 on 09/18 with treatment including bicarb drip and LR. Medications including losartan, metformin, Victoza, and Actos were held during hospitalization. - Ordered serum creatinine to assess current renal function. - Will review lab results today; if creatinine is near baseline, will consider restarting medications. - Educated patient on the importance of adequate hydration, especially during physical activities at high altitudes. 2. Essential hypertension (I10) Blood pressure elevated at 146/102, likely due to holding antihypertensive medication (losartan) during hospitalization. - Rechecked blood pressure. - Will consider resuming losartan based on renal function test results. 3. Controlled type 2 diabetes mellitus with stage 2 chronic kidney disease, without long-term current use of insulin (HCC) (E11.22) Chronic kidney disease with historically lower kidney function, exacerbated by recent acute kidney injury. Diabetes management interrupted due to holding metformin, Victoza, and Actos during hospitalization. - Ordered serum creatinine to evaluate renal function. - Will review lab results today; if renal function is stable, will consider resuming diabetes medications. - Discussed potential need for nephrology referral if renal function does not improve. Prescription instructions reviewed with patient as applicable. Potential red flag symptoms discussed with the patient. Reviewed appropriate action plan to take if red flag symptoms occur. Patient agreeable to treatment plan. Lawanda Guardado APRN.WAREHOUSE ORDER PICKER documented in this encounter [facility] 08-08-2024 Telephone encounter Note Patient to contact pharmacy. Leena Puri LPN [facility] 08-08-2024 Miscellaneous Notes Patient to contact pharmacy. Leena Puri LPN documented in this encounter [facility] 08-07-2024 Telephone encounter Note Pcp complete the provider's part of the forms pt brought in to the appt 07/06/24. Pt notified. He will pick this up in medical records. Copied for scanned records. [facility] 08-07-2024 Telephone encounter Note Pt notified. [facility] 08-07-2024 Miscellaneous Notes Pcp complete the provider's part of the forms pt brought in to the appt 07/06/24. Pt notified. He will pick this up in medical records. Copied for scanned records. documented in this encounter [facility] 08-07-2024 Miscellaneous Notes Pt notified. The following approved medication requests have been transmitted electronically. Requested Prescriptions Signed Prescriptions Disp Refills liraglutide (VICTOZA) 0.6 mg/ 0.1 ml subcutaneous pen injector 3 mL 1 Sig: Inject 0.6 mg subcutaneously once daily. Authorizing Provider: BENJI AMADO Note: Inject daily. Benji Amado MD Patient calling can not afford Trulicity levine. He was given an alternative Liraglutide and asking if could prescribe that? Please advise documented in this encounter [facility] 08-07-2024 Telephone encounter Note The following approved medication requests have been transmitted electronically. Requested Prescriptions Signed Prescriptions Disp Refills liraglutide (VICTOZA) 0.6 mg/ 0.1 ml subcutaneous pen injector 3 mL 1 Sig: Inject 0.6 mg subcutaneously once daily. Authorizing Provider: BENJI AMADO Note: Inject daily. Benji Amado MD [facility] 08-06-2024 Telephone encounter Note Patient calling can not afford Trulicity levine. He was given an alternative Liraglutide and asking if could prescribe that? Please advise [facility] 08-06-2024 Telephone encounter Note Needing PA for Leena Nelson LPN [facility] 08-06-2024 Miscellaneous Notes Needing PA for Leena Nelson LPN documented in this encounter [facility] 08-06-2024 Note HNO ID: [id number] Author: BENJI AMADO MD Service: ? Author Type: Physician Type: Progress Notes Filed: 08/06/2024 16:56 Note Text: This note was created using [employer]. Subjective Robin Fernández is a 49 year old male. He felt well and had no concerns. His hypertension was controlled. He was not checking his glucose. We reviewed his labs. He needed a scouting form completed as before. He was going on a prolonged back packing trip and was thinking of leaving his medication behind to save space. I advised against this. At least he should take his tablets. Review of Systems Constitutional: Negative. Respiratory: Negative. Cardiovascular: Negative. Genitourinary: Negative. Skin: Positive for color change (skin of legs, not pruritic). Neurological: Negative. ACTIVE PROBLEM LIST Non-Seasonal Allergic Rhinitis Essential Hypertension Gastroesophageal Reflux Disease Other Microscopic Hematuria Anosmia Mixed Hyperlipidemia Controlled Type 2 Diabetes Mellitus With Stage 2 Chronic Kidney Disease, Without Long-Term Current Use of Insulin (Hcc) Bilateral Leg Edema Social History Tobacco Use Smoking status: Never Smokeless tobacco: Never Vaping Use Vaping status: Never Used Substance Use Topics Alcohol use: Yes Drug use: Never Current Outpatient Medications Medication Sig metFORMIN ER (GLUCOPHAGE XR) 500 mg 24 hr tablet Take 2 tablets by mouth two times a day before meals. pantoprazole DR (PROTONIX) 40 mg tablet Take 1 tablet by mouth daily before breakfast. Take on empty stomach, 1/2 hr before meal. pioglitazone (ACTOS) 15 mg tablet Take 1 tablet by mouth once daily. amLODIPine (NORVASC) 5 mg tablet Take 1 tablet by mouth once daily. losartan (COZAAR) 100 mg tablet Take 1 tablet by mouth once daily. fluticasone (FLONASE) 50 mcg/actuation nasal spray Use 2 Sprays in each nostril once daily. Rinse mouth after use. No current facility-administered medications for this visit. Objective BP 128/85 Pulse 71 Wt (!) 142 kg (313 lb 0.9 oz) BMI 41.30 kg/m? Physical Exam Constitutional: General: He is not in acute distress. Appearance: He is not ill-appearing. Cardiovascular: Rate and Rhythm: Normal rate and regular rhythm. Heart sounds: No murmur heard. No gallop. Pulmonary: Breath sounds: Normal breath sounds. Musculoskeletal: Right lower le+ Pitting Edema present. Left lower le+ Pitting Edema present. Skin: Comments: Stasis faint pigmentation of both lower extremities. Neurological: Mental Status: He is alert. Latest Ref Rng 07/30/2024 WBC 3.70 - 11.00 k/uL 8.21 RBC 4.20 - 6.00 m/uL 4.36 Hemoglobin 13.0 - 17.0 g/dL 13.1 Hematocrit 39.0 - 51.0 % 37.7 (L) MCV 80.0 - 100.0 fL 86.5 MCH 26.0 - 34.0 pg 30.0 MCHC 30.5 - 36.0 g/dL 34.7 RDW-CV 11.5 - 15.0 % 12.2 Platelet Count 150 - 400 k/uL 237 MPV 9.0 - 12.7 fL 11.1 Absolute nRBC <0.01 k/uL <0.01 Glucose 74 - 99 mg/dL 275 (H) BUN 9 - 24 mg/dL 21 Creatinine 0.73 - 1.22 mg/dL 1.41 (H) Sodium 136 - 144 mmol/L 136 Potassium 3.7 - 5.1 mmol/L 4.6 Chloride 98 - 107 mmol/L 101 CO2 22 - 30 mmol/L 20 (L) Anion Gap 8 - 15 mmol/L 15 Calcium 8.5 - 10.2 mg/dL 9.6 eGFR >=60 mL/min/1.73m? 62 Creatinine, Ur Random (UCRR) 20.0 - 300.0 mg/dL 184.7 Albumin, Urine Random mg/L 376.9 Albumin/Creat Ratio <30 mg/g 204 (H) Hemoglobin A1C 4.3 - 5.6 % 10.1 (H) Estimated Average Glucose mg/dL 243 Legend: (L) Low (H) High Assessment and Plan 1. Controlled type 2 diabetes mellitus with stage 2 chronic kidney disease, without long-term current use of insulin (HCC) - ICD9: 250.40, 585.2, ICD10: E11.22, N18.2 (primary diagnosis) - worsening control - shared medical decision making was done. He had good results with Trulicity in the past until coverage changed. His insurance was different this year. - eGFR: 62 Stable - Continue current medication. - DULAGLUTIDE 1.5 MG/0.5 ML SUBCUTANEOUS PEN INJECTOR. New prescription. Discussed medication dosage, usage, goals of therapy, and side effects. 2. Screening for depression - ICD9: V79.0, ICD10: Z13.31 - DEPRESSION SCREENING 3. Encounter for screening examination for other mental health and behavioral disorders - ICD9: V79.8, ICD10: Z13.39 - ANXIETY SCREENING 4. Essential hypertension - ICD9: 401.9, ICD10: I10 - Controlled - Continue current medications 5. Obesity, Class III, BMI >= 40 - ICD9: 278.01, ICD10: E66.813 Weight increasing - Behavioral intervention 6. Stasis dermatitis of both legs - ICD9: 454.1, ICD10: I87.2 - This was discussed. - If able to stay on GLP1 medication, and glucose improving, we can discontinue pioglitazone, which contributes to edema. Benji Amado MD [facility] 08-06-2024 History of Presen t illness Narrative This note was created using [employer]. Subjective Robin Fernández is a 49 year old male. He felt well and had no concerns. His hypertension was controlled. He was not checking his glucose. We reviewed his labs. He needed a scouting form completed as before. He was going on a prolonged back packing trip and was thinking of leaving his medication behind to save space. I advised against this. At least he should take his tablets. Review of Systems Constitutional: Negative. Respiratory: Negative. Cardiovascular: Negative. Genitourinary: Negative. Skin: Positive for color change (skin of legs, not pruritic). Neurological: Negative. ACTIVE PROBLEM LIST Non-Seasonal Allergic Rhinitis Essential Hypertension Gastroesophageal Reflux Disease Other Microscopic Hematuria Anosmia Mixed Hyperlipidemia Controlled Type 2 Diabetes Mellitus With Stage 2 Chronic Kidney Disease, Without Long-Term Current Use of Insulin (Hcc) Bilateral Leg Edema Social History Tobacco Use Smoking status: Never Smokeless tobacco: Never Vaping Use Vaping status: Never Used Substance Use Topics Alcohol use: Yes Drug use: Never Current Outpatient Medications Medication Sig metFORMIN ER (GLUCOPHAGE XR) 500 mg 24 hr tablet Take 2 tablets by mouth two times a day before meals. pantoprazole DR (PROTONIX) 40 mg tablet Take 1 tablet by mouth daily before breakfast. Take on empty stomach, 1/2 hr before meal. pioglitazone (ACTOS) 15 mg tablet Take 1 tablet by mouth once daily. amLODIPine (NORVASC) 5 mg tablet Take 1 tablet by mouth once daily. losartan (COZAAR) 100 mg tablet Take 1 tablet by mouth once daily. fluticasone (FLONASE) 50 mcg/actuation nasal spray Use 2 Sprays in each nostril once daily. Rinse mouth after use. No current facility-administered medications for this visit. Objective BP 128/85 Pulse 71 Wt (!) 142 kg (313 lb 0.9 oz) BMI 41.30 kg/m Physical Exam Constitutional: General: He is not in acute distress. Appearance: He is not ill-appearing. Cardiovascular: Rate and Rhythm: Normal rate and regular rhythm. Heart sounds: No murmur heard. No gallop. Pulmonary: Breath sounds: Normal breath sounds. Musculoskeletal: Right lower le+ Pitting Edema present. Left lower le+ Pitting Edema present. Skin: Comments: Stasis faint pigmentation of both lower extremities. Neurological: Mental Status: He is alert. Latest Ref [facility] 07/30/2024 WBC 3.70 - 11.00 k/uL 8.21 RBC 4.20 - 6.00 m/uL 4.36 Hemoglobin 13.0 - 17.0 g/dL 13.1 Hematocrit 39.0 - 51.0 % 37.7 (L) MCV 80.0 - 100.0 fL 86.5 MCH 26.0 - 34.0 pg 30.0 MCHC 30.5 - 36.0 g/dL 34.7 RDW-CV 11.5 - 15.0 % 12.2 Platelet Count 150 - 400 k/uL 237 MPV 9.0 - 12.7 fL 11.1 Absolute nRBC <0.01 k/uL <0.01 Glucose 74 - 99 mg/dL 275 (H) BUN 9 - 24 mg/dL 21 Creatinine 0.73 - 1.22 mg/dL 1.41 (H) Sodium 136 - 144 mmol/L 136 Potassium 3.7 - 5.1 mmol/L 4.6 Chloride 98 - 107 mmol/L 101 CO2 22 - 30 mmol/L 20 (L) Anion Gap 8 - 15 mmol/L 15 Calcium 8.5 - 10.2 mg/dL 9.6 eGFR >=60 mL/min/1.73m 62 Creatinine, Ur Random (UCRR) 20.0 - 300.0 mg/dL 184.7 Albumin, Urine Random mg/L 376.9 Albumin/Creat Ratio <30 mg/g 204 (H) Hemoglobin A1C 4.3 - 5.6 % 10.1 (H) Estimated Average Glucose mg/dL 243 Legend: (L) Low (H) High Assessment and Plan 1. Controlled type 2 diabetes mellitus with stage 2 chronic kidney disease, without long-term current use of insulin (HCC) - ICD9: 250.40, 585.2, ICD10: E11.22, N18.2 (primary diagnosis) - worsening control - shared medical decision making was done. He had good results with Trulicity in the past until coverage changed. His insurance was different this year. - eGFR: 62 Stable - Continue current medication. - DULAGLUTIDE 1.5 MG/0.5 ML SUBCUTANEOUS PEN INJECTOR. New prescription. Discussed medication dosage, usage, goals of therapy, and side effects. 2. Screening for depression - ICD9: V79.0, ICD10: Z13.31 - DEPRESSION SCREENING 3. Encounter for screening examination for other mental health and behavioral disorders - ICD9: V79.8, ICD10: Z13.39 - ANXIETY SCREENING 4. Essential hypertension - ICD9: 401.9, ICD10: I10 - Controlled - Continue current medications 5. Obesity, Class III, BMI >= 40 - ICD9: 278.01, ICD10: E66.813 Weight increasing - Behavioral intervention 6. Stasis dermatitis of both legs - ICD9: 454.1, ICD10: I87.2 - This was discussed. - If able to stay on GLP1 medication, and glucose improving, we can discontinue pioglitazone, which contributes to edema. Benji Amado MD documented in this encounter [facility] 06-18-2024 Telephone encounter Note The patient has been identified by name and date of : Yes Caregiver verified no other encounters exist for this prescription request: Yes Caregiver confirmed with patient/requestor that no other refills are due, in the near future, with this provider at this time: Yes The last office visit in the department: 02/06/2024 Does the patient have a future office visit with this provider/department: Yes 08/06/2024 Requested Prescriptions Pending Prescriptions Disp Refills metFORMIN ER (GLUCOPHAGE XR) 500 mg 24 hr tablet 360 tablet 3 Sig: Take 2 tablets by mouth two times a day before meals. pantoprazole DR (PROTONIX) 40 mg tablet 90 tablet 3 Sig: Take 1 tablet by mouth daily before breakfast. Take on empty stomach, 1/2 hr before meal. pioglitazone (ACTOS) 15 mg tablet 90 tablet 3 Sig: Take 1 tablet by mouth once daily. Angel Salazar RN June 18, 2024 4:10 PM [facility] 06-18-2024 Miscellaneous Notes The patient has been identified by name and date of : Yes Caregiver verified no other encounters exist for this prescription request: Yes Caregiver confirmed with patient/requestor that no other refills are due, in the near future, with this provider at this time: Yes The last office visit in the department: 02/06/2024 Does the patient have a future office visit with this provider/department: Yes 08/06/2024 Requested Prescriptions Pending Prescriptions Disp Refills metFORMIN ER (GLUCOPHAGE XR) 500 mg 24 hr tablet 360 tablet 3 Sig: Take 2 tablets by mouth two times a day before meals. pantoprazole DR (PROTONIX) 40 mg tablet 90 tablet 3 Sig: Take 1 tablet by mouth daily before breakfast. Take on empty stomach, 1/2 hr before meal. pioglitazone (ACTOS) 15 mg tablet 90 tablet 3 Sig: Take 1 tablet by mouth once daily. Angel Salazar RN June 18, 2024 4:10 PM documented in this encounter [facility] 02-06-2024 Note HNO ID: [id number] Author: BENJI AMADO MD Service: ? Author Type: Physician Type: Progress Notes Filed: 02/06/2024 17:09 Note Text: This note was created using [employer]. Subjective Robin Fernández is a 48 year old male. He was doing well, other than he started noticing leg swelling daily after taking his medications that resolve with sleep and leg elevation. No pain was noted. He took bupropion only for about a month, and stopped. Stressors have improved. Review of Systems Constitutional: Negative for fatigue and fever. Respiratory: Negative for shortness of breath. Cardiovascular: Positive for leg swelling. Negative for chest pain and palpitations. Gastrointestinal: Negative. Genitourinary: Negative for difficulty urinating and dysuria. Musculoskeletal: Negative for arthralgias. Neurological: Negative for dizziness and headaches. ACTIVE PROBLEM LIST Non-Seasonal Allergic Rhinitis Essential Hypertension Gastroesophageal Reflux Disease Other Microscopic Hematuria Anosmia Mixed Hyperlipidemia Controlled Type 2 Diabetes Mellitus With Stage 1 Chronic Kidney Disease, Without Long-Term Current Use of Insulin (Hcc) (Hcc) Social History Tobacco Use Smoking status: Never Smokeless tobacco: Never Vaping Use Vaping status: Never Used Substance Use Topics Alcohol use: Yes Drug use: Never Current Outpatient Medications Medication Sig metFORMIN ER (GLUCOPHAGE XR) 500 mg 24 hr tablet Take 2 tablets by mouth two times a day before meals. pioglitazone (ACTOS) 15 mg tablet Take 1 tablet by mouth once daily. pantoprazole DR (PROTONIX) 40 mg tablet Take 1 tablet by mouth daily before breakfast. Take on empty stomach, 1/2 hr before meal. amLODIPine (NORVASC) 10 mg tablet Take 1 tablet by mouth once daily. fluticasone (FLONASE) 50 mcg/actuation nasal spray Use 2 Sprays in each nostril once daily. Rinse mouth after use. losartan (COZAAR) 50 mg tablet Take 1 tablet by mouth once daily. predniSONE (DELTASONE) 10 mg tablet TAKE BY MOUTH 4 TABLETS DAILY FOR 2 DAYS, THEN 3 TABLETS DAILY FOR 2 DAYS, THEN 2 TABLETS DAILY FOR 2 DAYS, THEN 1 TABLET DAILY FOR 2 DAYS. (Patient not taking: Reported on 02/06/2024) buPROPion XL (WELLBUTRIN XL) 150 mg 24 hr tablet TAKE 1 TABLET BY MOUTH EVERY DAY (Patient not taking: Reported on 02/06/2024) albuterol HFA (PROVENTIL HFA, VENTOLIN HFA) 90 mcg/actuation inhaler Inhale 2 Puffs as instructed every 4 hours as needed for wheezing/shortness of breath. (Patient not taking: Reported on 07/06/2023) No current facility-administered medications for this visit. Objective BP 114/76 (BP Site: Left Arm, BP Position: Sitting, BP Cuff Size: Large Adult) Pulse 92 Temp 36.8 ?C (98.3 ?F) (Temporal) Wt (!) 139.8 kg (308 lb 3.3 oz) BMI 40.66 kg/m? Physical Exam Constitutional: General: He is not in acute distress. Appearance: He is not ill-appearing. Cardiovascular: Rate and Rhythm: Normal rate and regular rhythm. Heart sounds: No murmur heard. No gallop. Pulmonary: Breath sounds: Normal breath sounds. Musculoskeletal: Right lower le+ Edema present. Left lower le+ Edema present. Neurological: Mental Status: He is alert. Feet:Shoes and socks removed, No deformities, ulcers, calluses, normal distal pulses, and sensitive to 10 gm monofilament Latest Ref Rng 01/23/2024 Glucose 74 - 99 mg/dL 133 (H) BUN 9 - 24 mg/dL 20 Creatinine 0.73 - 1.22 mg/dL 1.54 (H) Sodium 136 - 144 mmol/L 135 (L) Potassium 3.7 - 5.1 mmol/L 4.0 Chloride 98 - 107 mmol/L 98 CO2 22 - 30 mmol/L 24 Anion Gap 8 - 15 mmol/L 13 Calcium 8.5 - 10.2 mg/dL 9.7 eGFR >=60 mL/min/1.73m? 56 (L) Cholesterol, Total <200 mg/dL 200 (H) Triglyceride <150 mg/dL 325 (H) HDL Cholesterol >39 mg/dL 27 (L) Non HDL Cholesterol <130 mg/dL 173 (H) Fasting Time hrs 13 VLDL Cholesterol <30 mg/dL 65 (H) TC:HDL Ratio <5.10 7.41 (H) LDL Cholesterol <100 mg/dL 108 (H) LDL:HDL Ratio <2.54 4.00 (H) Creatinine, Ur Random (UCRR) 20.0 - 300.0 mg/dL 152.0 Albumin, Urine Random mg/L 320.1 Albumin/Creat Ratio <30 mg/g 211 (H) Hemoglobin A1C 4.3 - 5.6 % 7.3 (H) Estimated Average Glucose mg/dL 163 Legend: (H) High (L) Low Assessment and Plan 1. Controlled type 2 diabetes mellitus with stage 2 chronic kidney disease, without long-term current use of insulin ([facility]) ([facility]) - ICD9: 250.40, 585.2, ICD10: E11.22, N18.2 (primary diagnosis) - Improving control - Continue current medications - eGFR: 56 Worsening - Counseled on avoiding NSAIDs, adequate hydration - BASIC METABOLIC PANEL - HEMOGLOBIN A1C - ALBUMIN/CREATININE RATIO, URINE 2. Essential hypertension - ICD9: 401.9, ICD10: I10 - Controlled - Encouraged sodium restriction, DASH or Mediterranean diet - Discussed need for and benefit of weight loss. BMI 40.66 kg/(m2) - AMLODIPINE 5 MG TABLET. Dose reduced from 10 mg daily due to leg edema. - LOSARTAN 100 MG TABLET. Dose increased f (more content not included)... [facility] 02-06-2024 History of Presen t illness Narrative This note was created using [employer]. Subjective Robin Fernández is a 48 year old male. He was doing well, other than he started noticing leg swelling daily after taking his medications that resolve with sleep and leg elevation. No pain was noted. He took bupropion only for about a month, and stopped. Stressors have improved. Review of Systems Constitutional: Negative for fatigue and fever. Respiratory: Negative for shortness of breath. Cardiovascular: Positive for leg swelling. Negative for chest pain and palpitations. Gastrointestinal: Negative. Genitourinary: Negative for difficulty urinating and dysuria. Musculoskeletal: Negative for arthralgias. Neurological: Negative for dizziness and headaches. ACTIVE PROBLEM LIST Non-Seasonal Allergic Rhinitis Essential Hypertension Gastroesophageal Reflux Disease Other Microscopic Hematuria Anosmia Mixed Hyperlipidemia Controlled Type 2 Diabetes Mellitus With Stage 1 Chronic Kidney Disease, Without Long-Term Current Use of Insulin ([facility]) ([facility]) Social History Tobacco Use Smoking status: Never Smokeless tobacco: Never Vaping Use Vaping status: Never Used Substance Use Topics Alcohol use: Yes Drug use: Never Current Outpatient Medications Medication Sig metFORMIN ER (GLUCOPHAGE XR) 500 mg 24 hr tablet Take 2 tablets by mouth two times a day before meals. pioglitazone (ACTOS) 15 mg tablet Take 1 tablet by mouth once daily. pantoprazole DR (PROTONIX) 40 mg tablet Take 1 tablet by mouth daily before breakfast. Take on empty stomach, 1/2 hr before meal. amLODIPine (NORVASC) 10 mg tablet Take 1 tablet by mouth once daily. fluticasone (FLONASE) 50 mcg/actuation nasal spray Use 2 Sprays in each nostril once daily. Rinse mouth after use. losartan (COZAAR) 50 mg tablet Take 1 tablet by mouth once daily. predniSONE (DELTASONE) 10 mg tablet TAKE BY MOUTH 4 TABLETS DAILY FOR 2 DAYS, THEN 3 TABLETS DAILY FOR 2 DAYS, THEN 2 TABLETS DAILY FOR 2 DAYS, THEN 1 TABLET DAILY FOR 2 DAYS. (Patient not taking: Reported on 02/06/2024) buPROPion XL (WELLBUTRIN XL) 150 mg 24 hr tablet TAKE 1 TABLET BY MOUTH EVERY DAY (Patient not taking: Reported on 02/06/2024) albuterol HFA (PROVENTIL HFA, VENTOLIN HFA) 90 mcg/actuation inhaler Inhale 2 Puffs as instructed every 4 hours as needed for wheezing/shortness of breath. (Patient not taking: Reported on 07/06/2023) No current facility-administered medications for this visit. Objective BP 114/76 (BP Site: Left Arm, BP Position: Sitting, BP Cuff Size: Large Adult) Pulse 92 Temp 36.8 C (98.3 F) (Temporal) Wt (!) 139.8 kg (308 lb 3.3 oz) BMI 40.66 kg/m Physical Exam Constitutional: General: He is not in acute distress. Appearance: He is not ill-appearing. Cardiovascular: Rate and Rhythm: Normal rate and regular rhythm. Heart sounds: No murmur heard. No gallop. Pulmonary: Breath sounds: Normal breath sounds. Musculoskeletal: Right lower le+ Edema present. Left lower le+ Edema present. Neurological: Mental Status: He is alert. Feet:Shoes and socks removed, No deformities, ulcers, calluses, normal distal pulses, and sensitive to 10 gm monofilament Latest Ref Rng 01/23/2024 Glucose 74 - 99 mg/dL 133 (H) BUN 9 - 24 mg/dL 20 Creatinine 0.73 - 1.22 mg/dL 1.54 (H) Sodium 136 - 144 mmol/L 135 (L) Potassium 3.7 - 5.1 mmol/L 4.0 Chloride 98 - 107 mmol/L 98 CO2 22 - 30 mmol/L 24 Anion Gap 8 - 15 mmol/L 13 Calcium 8.5 - 10.2 mg/dL 9.7 eGFR >=60 mL/min/1.73m 56 (L) Cholesterol, Total <200 mg/dL 200 (H) Triglyceride <150 mg/dL 325 (H) HDL Cholesterol >39 mg/dL 27 (L) Non HDL Cholesterol <130 mg/dL 173 (H) Fasting Time hrs 13 VLDL Cholesterol <30 mg/dL 65 (H) TC:HDL Ratio <5.10 7.41 (H) LDL Cholesterol <100 mg/dL 108 (H) LDL:HDL Ratio <2.54 4.00 (H) Creatinine, Ur Random (UCRR) 20.0 - 300.0 mg/dL 152.0 Albumin, Urine Random mg/L 320.1 Albumin/Creat Ratio <30 mg/g 211 (H) Hemoglobin A1C 4.3 - 5.6 % 7.3 (H) Estimated Average Glucose mg/dL 163 Legend: (H) High (L) Low Assessment and Plan 1. Controlled type 2 diabetes mellitus with stage 2 chronic kidney disease, without long-term current use of insulin (HCC) (HCC) - ICD9: 250.40, 585.2, ICD10: E11.22, N18.2 (primary diagnosis) - Improving control - Continue current medications - eGFR: 56 Worsening - Counseled on avoiding NSAIDs, adequate hydration - BASIC METABOLIC PANEL - HEMOGLOBIN A1C - ALBUMIN/CREATININE RATIO, URINE 2. Essential hypertension - ICD9: 401.9, ICD10: I10 - Controlled - Encouraged sodium restriction, DASH or Mediterranean diet - Discussed need for and benefit of weight loss. BMI 40.66 kg/(m^2) - AMLODIPINE 5 MG TABLET. Dose reduced from 10 mg daily due to leg edema. - LOSARTAN 100 MG TABLET. Dose increased from 50 mg daily for hypertension. - COMPLETE BLOOD COUNT 3. Chronic kidney disease, stage 2, mildly decreased GFR - ICD9: 585.2, ICD10: N18.2 - eGFR: 56 Worsening - see above. Risk factor modification. 4. Mixed hyperlipidemia - ICD9: 272.2, ICD10: E78.2 Stable. - Counseled on healthy diet and regular exercise 5. Bilateral leg edema - ICD9: 782.3, ICD10: R60.0 - Secondary to medications. See #2. Benji Amado MD documented in this encounter [facility] 10-25-2023 Telephone encounter Note Phoned patient and went over results, notes from Dr Amado with understanding. [facility] 10-25-2023 Miscellaneous Notes Phoned patient and went over results, notes from Dr Amado with understanding. ----- Message from Benji Amado MD sent at 10/25/2023 1:17 PM EDT ----- Bibasilar atelectasis. No pneumonia. Encourage deep breathing exercises. documented in this encounter [facility] 10-25-2023 Telephone encounter Note ----- Message from Benji Amado MD sent at 10/25/2023 1:17 PM EDT ----- Bibasilar atelectasis. No pneumonia. Encourage deep breathing exercises. [facility] 10-20-2023 History of Presen t illness Narrative Radiology Service Progress Note PATIENT NAME: Robin Fernández DATE OF SERVICE: October 20, 2023 TIME: 5:52 PM PATIENT IDENTITY VERIFICATION COMPLETED USING TWO (2) IDENTIFIERS: Name and Date of confirmed by patient verbally. FALL SCREENING: Has the patient had 2 falls in the last year or 1 fall with injury or currently using an Ambulatory Assistive Device (Walker, Cane, Wheelchair, Crutches, etc.)? No PATIENT GENDER DATA: Male PATIENT RELEVANT IMPLANT DATA REVIEWED: Yes PATIENT PRESENTS WITH AN IMPLANTABLE OR ATTACHED ACCOUNTS MANAGER: No RADIOLOGY DEPARTMENT: General X-ray: Exam(s) Completed: Chest X-Ray PERIPHERAL IV DATA: Not applicable SIGNED BY: RT Nixon(R) October 20, 2023 5:52 PM documented in this encounter [facility] 10-20-2023 Note HNO ID: [id number] Author: SHINE FRANKLIN RT(R) Service: ? Author Type: Nutrition Faculty Member Type: Progress Notes Filed: 10/20/2023 18:01 Note Text: Radiology Service Progress Note PATIENT NAME: Robin Fernández DATE OF SERVICE: October 20, 2023 TIME: 5:52 PM PATIENT IDENTITY VERIFICATION COMPLETED USING TWO (2) IDENTIFIERS: Name and Date of confirmed by patient verbally. FALL SCREENING: Has the patient had 2 falls in the last year or 1 fall with injury or currently using an Ambulatory Assistive Device (Walker, Cane, Wheelchair, Crutches, etc.)? No PATIENT GENDER DATA: Male PATIENT RELEVANT IMPLANT DATA REVIEWED: Yes PATIENT PRESENTS WITH AN IMPLANTABLE OR ATTACHED ACCOUNTS MANAGER: No RADIOLOGY DEPARTMENT: General X-ray: Exam(s) Completed: Chest X-Ray PERIPHERAL IV DATA: Not applicable SIGNED BY: RT Nixon(Hernán) October 20, 2023 5:52 PM [facility] 10-20-2023 Note HNO ID: [id number] Author: BENJI AMADO MD Service: ? Author Type: Physician Type: Progress Notes Filed: 10/20/2023 18:00 Note Text: This note was created using NoteWriter. Subjective Robin Fernández is a 48 year old male who presents with complaint of sinus infection, sinus symptoms, facial pain/pressure maxillary, on the right, post nasal drip, cough- barky, congested, with some wheezing heard, with coughing fits, with some dyspnea, and fatigue for 8 weeks. He denies fever ear pain, sore throat, nausea, vomiting, and diarrhea. Persistent symptoms prompted EC visit last week. Treatments tried include Albuterol, Augmentin, and prednisone with partial relief of symptoms. He only used albuterol twice a day and felt it was not helpful. Review of Systems Per HPI. ACTIVE PROBLEM LIST Non-Seasonal Allergic Rhinitis Essential Hypertension Gastroesophageal Reflux Disease Other Microscopic Hematuria Anosmia Mixed Hyperlipidemia Controlled Type 2 Diabetes Mellitus With Stage 1 Chronic Kidney Disease, Without Long-Term Current Use of Insulin ([facility]) ([facility]) Social History Tobacco Use Smoking status: Never Smokeless tobacco: Never Vaping Use Vaping status: Never Used Substance Use Topics Alcohol use: Yes Drug use: Never Current Outpatient Medications Medication Sig metFORMIN ER (GLUCOPHAGE XR) 500 mg 24 hr tablet Take 2 tablets by mouth two times a day before meals. buPROPion XL (WELLBUTRIN XL) 150 mg 24 hr tablet TAKE 1 TABLET BY MOUTH EVERY DAY pioglitazone (ACTOS) 15 mg tablet Take 1 tablet by mouth once daily. pantoprazole DR (PROTONIX) 40 mg tablet Take 1 tablet by mouth daily before breakfast. Take on empty stomach, 1/2 hr before meal. amLODIPine (NORVASC) 10 mg tablet Take 1 tablet by mouth once daily. fluticasone (FLONASE) 50 mcg/actuation nasal spray Use 2 Sprays in each nostril once daily. Rinse mouth after use. losartan (COZAAR) 50 mg tablet Take 1 tablet by mouth once daily. albuterol HFA (PROVENTIL HFA, VENTOLIN HFA) 90 mcg/actuation inhaler Inhale 2 Puffs as instructed every 4 hours as needed for wheezing/shortness of breath. (Patient not taking: Reported on 07/06/2023) blood sugar diagnostic (BLOOD GLUCOSE TEST) test strip Test blood sugar(s) 2 times daily. Dx: Type 2 DM - Uncontrolled E11.65 Insulin: No (Patient not taking: Reported on 07/06/2023) Lancets lancets Test blood sugar(s) 2 times daily. Dx: Type 2 DM - Uncontrolled E11.65 Insulin: No (Patient not taking: Reported on 06/22/2023) No current facility-administered medications for this visit. Objective BP 144/90 (BP Site: Left Arm, BP Position: Sitting, BP Cuff Size: Large Adult) Pulse 88 Temp 36.6 ?C (97.9 ?F) (Temporal) Wt (!) 138.2 kg (304 lb 10.8 oz) BMI 40.20 kg/m? Physical Exam Constitutional: General: He is not in acute distress. Appearance: He is not ill-appearing or diaphoretic. HENT: Nose: Congestion present. No rhinorrhea. Right Sinus: No maxillary sinus tenderness or frontal sinus tenderness. Left Sinus: No maxillary sinus tenderness or frontal sinus tenderness. Mouth/Throat: Pharynx: No oropharyngeal exudate or posterior oropharyngeal erythema. Cardiovascular: Rate and Rhythm: Normal rate and regular rhythm. Pulmonary: Effort: No respiratory distress. Breath sounds: Wheezing and rhonchi present. Comments: Improved breath sounds post nebulizer. Lymphadenopathy: Cervical: No cervical adenopathy. Neurological: Mental Status: He is alert. Assessment and Plan 1. Bronchitis with wheezing - ICD9: 490, ICD10: J40 (primary diagnosis) He was encouraged to use his albuterol with spacer device every 4 hours as needed. - AZITHROMYCIN 250 MG TABLET - PREDNISONE 10 MG TABLET - ALBUTEROL SULFATE 2.5 MG/3 ML (0.083 %) SOLUTION FOR NEBULIZATION - INHALATIONAL SPACING DEVICE - XR CHEST 2V FRONTAL/LAT Discussed medication dosage, usage, goals of therapy, and side effects. 2. Acute non-recurrent sinusitis, unspecified location - ICD9: 461.9, ICD10: J01.90 See above. - AZITHROMYCIN 250 MG TABLET - PREDNISONE 10 MG TABLET Benji Amado MD [facility] 10-20-2023 History of Presen t illness Narrative This note was created using NoteWriter. Subjective Robin Fernández is a 48 year old male who presents with complaint of sinus infection, sinus symptoms, facial pain/pressure maxillary, on the right, post nasal drip, cough- barky, congested, with some wheezing heard, with coughing fits, with some dyspnea, and fatigue for 8 weeks. He denies fever ear pain, sore throat, nausea, vomiting, and diarrhea. Persistent symptoms prompted EC visit last week. Treatments tried include Albuterol, Augmentin, and prednisone with partial relief of symptoms. He only used albuterol twice a day and felt it was not helpful. Review of Systems Per HPI. ACTIVE PROBLEM LIST Non-Seasonal Allergic Rhinitis Essential Hypertension Gastroesophageal Reflux Disease Other Microscopic Hematuria Anosmia Mixed Hyperlipidemia Controlled Type 2 Diabetes Mellitus With Stage 1 Chronic Kidney Disease, Without Long-Term Current Use of Insulin ([facility]) ([facility]) Social History Tobacco Use Smoking status: Never Smokeless tobacco: Never Vaping Use Vaping status: Never Used Substance Use Topics Alcohol use: Yes Drug use: Never Current Outpatient Medications Medication Sig metFORMIN ER (GLUCOPHAGE XR) 500 mg 24 hr tablet Take 2 tablets by mouth two times a day before meals. buPROPion XL (WELLBUTRIN XL) 150 mg 24 hr tablet TAKE 1 TABLET BY MOUTH EVERY DAY pioglitazone (ACTOS) 15 mg tablet Take 1 tablet by mouth once daily. pantoprazole DR (PROTONIX) 40 mg tablet Take 1 tablet by mouth daily before breakfast. Take on empty stomach, 1/2 hr before meal. amLODIPine (NORVASC) 10 mg tablet Take 1 tablet by mouth once daily. fluticasone (FLONASE) 50 mcg/actuation nasal spray Use 2 Sprays in each nostril once daily. Rinse mouth after use. losartan (COZAAR) 50 mg tablet Take 1 tablet by mouth once daily. albuterol HFA (PROVENTIL HFA, VENTOLIN HFA) 90 mcg/actuation inhaler Inhale 2 Puffs as instructed every 4 hours as needed for wheezing/shortness of breath. (Patient not taking: Reported on 07/06/2023) blood sugar diagnostic (BLOOD GLUCOSE TEST) test strip Test blood sugar(s) 2 times daily. Dx: Type 2 DM - Uncontrolled E11.65 Insulin: No (Patient not taking: Reported on 07/06/2023) Lancets lancets Test blood sugar(s) 2 times daily. Dx: Type 2 DM - Uncontrolled E11.65 Insulin: No (Patient not taking: Reported on 06/22/2023) No current facility-administered medications for this visit. Objective BP 144/90 (BP Site: Left Arm, BP Position: Sitting, BP Cuff Size: Large Adult) Pulse 88 Temp 36.6 C (97.9 F) (Temporal) Wt (!) 138.2 kg (304 lb 10.8 oz) BMI 40.20 kg/m Physical Exam Constitutional: General: He is not in acute distress. Appearance: He is not ill-appearing or diaphoretic. HENT: Nose: Congestion present. No rhinorrhea. Right Sinus: No maxillary sinus tenderness or frontal sinus tenderness. Left Sinus: No maxillary sinus tenderness or frontal sinus tenderness. Mouth/Throat: Pharynx: No oropharyngeal exudate or posterior oropharyngeal erythema. Cardiovascular: Rate and Rhythm: Normal rate and regular rhythm. Pulmonary: Effort: No respiratory distress. Breath sounds: Wheezing and rhonchi present. Comments: Improved breath sounds post nebulizer. Lymphadenopathy: Cervical: No cervical adenopathy. Neurological: Mental Status: He is alert. Assessment and Plan 1. Bronchitis with wheezing - ICD9: 490, ICD10: J40 (primary diagnosis) He was encouraged to use his albuterol with spacer device every 4 hours as needed. - AZITHROMYCIN 250 MG TABLET - PREDNISONE 10 MG TABLET - ALBUTEROL SULFATE 2.5 MG/3 ML (0.083 %) SOLUTION FOR NEBULIZATION - INHALATIONAL SPACING DEVICE - XR CHEST 2V FRONTAL/LAT Discussed medication dosage, usage, goals of therapy, and side effects. 2. Acute non-recurrent sinusitis, unspecified location - ICD9: 461.9, ICD10: J01.90 See above. - AZITHROMYCIN 250 MG TABLET - PREDNISONE 10 MG TABLET Benji Amado MD documented in this encounter [facility] 10-11-2023 Note HNO ID: [id number] Author: TED URIOSTEGUI APRN.[employer] Service: ? Author Type: Nurse Practitioner Type: Progress Notes Filed: 10/11/2023 17:31 Note Text: Subjective HPI HPI Robin Fernández is a 48 year old male who presents today for CC of cough, congestion for 6 weeks, sinus pressure for 1 week. Has tried otc medication for relief. Symptoms are worsened by nothing. Risk factors hx of sinusitis. nonsmoker. .Patient presents with: Cough: Chest congestion, sinus pain and pressure, VILLALOBOS x6 weeks PAST MEDICAL HISTORY 07/02/2020: Anosmia 02/08/2020: COVID-19 07/03/2020: Essential hypertension 12/22/2020: Gastroesophageal reflux disease 2010: Hypertension 05/07/2021: Mixed hyperlipidemia 04/06/2019: Non-seasonal allergic rhinitis No date: Sleep apnea 12/22/2020: Uncontrolled type 2 diabetes mellitus with hyperglycemia (HCC) PAST SURGICAL HISTORY 2008: CARPAL TUNNEL; Bilateral 05/17/2022: COLONOSCOPY SCREENING Comment: hyperplastic polyps x 2 2019: ROTATOR CUFF REPAIR; Left Comment: Dr. Yancey 2008: VASECTOMY UNI/BI SPX W/POSTOP SEMEN EXAMS ALLERGIES Environmental [Seasonal Allergies] MEDICATIONS metFORMIN ER (GLUCOPHAGE XR) 500 mg 24 hr tablet Take 2 tablets by mouth two times a day before meals. buPROPion XL (WELLBUTRIN XL) 150 mg 24 hr tablet TAKE 1 TABLET BY MOUTH EVERY DAY pioglitazone (ACTOS) 15 mg tablet Take 1 tablet by mouth once daily. pantoprazole DR (PROTONIX) 40 mg tablet Take 1 tablet by mouth daily before breakfast. Take on empty stomach, 1/2 hr before meal. amLODIPine (NORVASC) 10 mg tablet Take 1 tablet by mouth once daily. fluticasone (FLONASE) 50 mcg/actuation nasal spray Use 2 Sprays in each nostril once daily. Rinse mouth after use. losartan (COZAAR) 50 mg tablet Take 1 tablet by mouth once daily. predniSONE (DELTASONE) 20 mg tablet Take 2 tablets by mouth once daily for 5 days. amoxicillin-clavulanate potassium (AUGMENTIN) 875-125 mg per tablet Take 1 tablet by mouth two times a day for 7 days. albuterol HFA (PROVENTIL HFA, VENTOLIN HFA) 90 mcg/actuation inhaler Inhale 2 Puffs as instructed every 4 hours as needed for wheezing/shortness of breath. (Patient not taking: Reported on 07/06/2023) blood sugar diagnostic (BLOOD GLUCOSE TEST) test strip Test blood sugar(s) 2 times daily. Dx: Type 2 DM - Uncontrolled E11.65 Insulin: No (Patient not taking: Reported on 07/06/2023) Lancets lancets Test blood sugar(s) 2 times daily. Dx: Type 2 DM - Uncontrolled E11.65 Insulin: No (Patient not taking: Reported on 06/22/2023) FAMILY HISTORY Problem Relation Age of Onset Hypertension Mother Blood Disease Mother leukemia Hypertension Father Coronary Artery Disease Father stented Ischemic Heart Disease Father CABG Arrythmias Brother Heart Brother 47 Valve replacement Diabetes Maternal Grandmother Coronary Artery Disease Maternal Grandmother Diabetes Maternal Grandfather Coronary Artery Disease Maternal Grandfather cabg Diabetes Paternal Grandfather Coronary Artery Disease Paternal Grandfather cabg Social History Tobacco Use Smoking status: Never Smokeless tobacco: Never Vaping Use Vaping Use: Never used Substance Use Topics Alcohol use: Yes Drug use: Never Review of Systems Constitutional: Negative for fever. HENT: Positive for congestion and sinus pain. Negative for ear pain, nosebleeds and sore throat. Respiratory: Positive for cough and sputum production. Negative for shortness of breath and wheezing. Musculoskeletal: Negative for neck pain. Objective Blood pressure 151/87, pulse 93, temperature 36.8 ?C (98.3 ?F), resp. rate 20, weight (!) 139.9 kg (308 lb 6.8 oz), SpO2 97%. Physical Exam Constitutional: General: He is not in acute distress. Appearance: He is not toxic-appearing or diaphoretic. HENT: Head: Normocephalic and atraumatic. Nose: Right Sinus: Maxillary sinus tenderness present. Left Sinus: Maxillary sinus tenderness present. Cardiovascular: Rate and Rhythm: Normal rate and regular rhythm. Heart sounds: Normal heart sounds, S1 normal and S2 normal. Pulmonary: Effort: Pulmonary effort is normal. Breath sounds: Normal breath sounds. Lymphadenopathy: Cervical: No cervical adenopathy. Right cervical: No superficial cervical adenopathy. Left cervical: No superficial cervical adenopathy. Neurological: Mental Status: He is alert and oriented to person, place, and time. Gait: Gait is intact. ASSESSMENT/PLAN: 1. Sinobronchitis - ICD9: 473.9, 490, ICD10: J32.9, J40 - Will begin treatment with as per antibiotic as written, see orders - Supportive care with plenty of fluids, rest, and analgesia prn. - Follow up in 3-5 days if symptoms persist or worsen. - PREDNISONE 20 MG TABLET - AMOXICILLIN 875 MG-POTASSIUM CLAVULANATE 125 MG TABLET Ted Uriostegui APRN.[place] 10-11-2023 History of Presen t illness Narrative Subjective HPI HPI Robin Fernández is a 48 year old male who presents today for CC of cough, congestion for 6 weeks, sinus pressure for 1 week. Has tried otc medication for relief. Symptoms are worsened by nothing. Risk factors hx of sinusitis. nonsmoker. .Patient presents with: Cough: Chest congestion, sinus pain and pressure, VILLALOBOS x6 weeks PAST MEDICAL HISTORY 07/02/2020: Anosmia 02/08/2020: COVID-19 07/03/2020: Essential hypertension 12/22/2020: Gastroesophageal reflux disease 2010: Hypertension 05/07/2021: Mixed hyperlipidemia 04/06/2019: Non-seasonal allergic rhinitis No date: Sleep apnea 12/22/2020: Uncontrolled type 2 diabetes mellitus with hyperglycemia (HCC) PAST SURGICAL HISTORY 2008: CARPAL TUNNEL; Bilateral 05/17/2022: COLONOSCOPY SCREENING Comment: hyperplastic polyps x 2 2019: ROTATOR CUFF REPAIR; Left Comment: Dr. Yancey 2007: VASECTOMY UNI/BI SPX W/POSTOP SEMEN EXAMS ALLERGIES Environmental [Seasonal Allergies] MEDICATIONS metFORMIN ER (GLUCOPHAGE XR) 500 mg 24 hr tablet Take 2 tablets by mouth two times a day before meals. buPROPion XL (WELLBUTRIN XL) 150 mg 24 hr tablet TAKE 1 TABLET BY MOUTH EVERY DAY pioglitazone (ACTOS) 15 mg tablet Take 1 tablet by mouth once daily. pantoprazole DR (PROTONIX) 40 mg tablet Take 1 tablet by mouth daily before breakfast. Take on empty stomach, 1/2 hr before meal. amLODIPine (NORVASC) 10 mg tablet Take 1 tablet by mouth once daily. fluticasone (FLONASE) 50 mcg/actuation nasal spray Use 2 Sprays in each nostril once daily. Rinse mouth after use. losartan (COZAAR) 50 mg tablet Take 1 tablet by mouth once daily. predniSONE (DELTASONE) 20 mg tablet Take 2 tablets by mouth once daily for 5 days. amoxicillin-clavulanate potassium (AUGMENTIN) 875-125 mg per tablet Take 1 tablet by mouth two times a day for 7 days. albuterol HFA (PROVENTIL HFA, VENTOLIN HFA) 90 mcg/actuation inhaler Inhale 2 Puffs as instructed every 4 hours as needed for wheezing/shortness of breath. (Patient not taking: Reported on 07/06/2023) blood sugar diagnostic (BLOOD GLUCOSE TEST) test strip Test blood sugar(s) 2 times daily. Dx: Type 2 DM - Uncontrolled E11.65 Insulin: No (Patient not taking: Reported on 07/06/2023) Lancets lancets Test blood sugar(s) 2 times daily. Dx: Type 2 DM - Uncontrolled E11.65 Insulin: No (Patient not taking: Reported on 06/22/2023) FAMILY HISTORY Problem Relation Age of Onset Hypertension Mother Blood Disease Mother leukemia Hypertension Father Coronary Artery Disease Father stented Ischemic Heart Disease Father CABG Arrythmias Brother Heart Brother 47 Valve replacement Diabetes Maternal Grandmother Coronary Artery Disease Maternal Grandmother Diabetes Maternal Grandfather Coronary Artery Disease Maternal Grandfather cabg Diabetes Paternal Grandfather Coronary Artery Disease Paternal Grandfather cabg Social History Tobacco Use Smoking status: Never Smokeless tobacco: Never Vaping Use Vaping Use: Never used Substance Use Topics Alcohol use: Yes Drug use: Never Review of Systems Constitutional: Negative for fever. HENT: Positive for congestion and sinus pain. Negative for ear pain, nosebleeds and sore throat. Respiratory: Positive for cough and sputum production. Negative for shortness of breath and wheezing. Musculoskeletal: Negative for neck pain. Objective Blood pressure 151/87, pulse 93, temperature 36.8 C (98.3 F), resp. rate 20, weight (!) 139.9 kg (308 lb 6.8 oz), SpO2 97%. Physical Exam Constitutional: General: He is not in acute distress. Appearance: He is not toxic-appearing or diaphoretic. HENT: Head: Normocephalic and atraumatic. Nose: Right Sinus: Maxillary sinus tenderness present. Left Sinus: Maxillary sinus tenderness present. Cardiovascular: Rate and Rhythm: Normal rate and regular rhythm. Heart sounds: Normal heart sounds, S1 normal and S2 normal. Pulmonary: Effort: Pulmonary effort is normal. Breath sounds: Normal breath sounds. Lymphadenopathy: Cervical: No cervical adenopathy. Right cervical: No superficial cervical adenopathy. Left cervical: No superficial cervical adenopathy. Neurological: Mental Status: He is alert and oriented to person, place, and time. Gait: Gait is intact. ASSESSMENT/PLAN: 1. Sinobronchitis - ICD9: 473.9, 490, ICD10: J32.9, J40 - Will begin treatment with as per antibiotic as written, see orders - Supportive care with plenty of fluids, rest, and analgesia prn. - Follow up in 3-5 days if symptoms persist or worsen. - PREDNISONE 20 MG TABLET - AMOXICILLIN 875 MG-POTASSIUM CLAVULANATE 125 MG TABLET Ted Uriostegui APRN.[employer] documented in this encounter [facility] 08-23-2023 Telephone encounter Note Patient has been identified by name and date of : Yes Patient phones for refill(s): Requested Prescriptions Pending Prescriptions Disp Refills metFORMIN ER (GLUCOPHAGE XR) 500 mg 24 hr tablet 360 tablet 3 Sig: Take 2 tablets by mouth two times a day before meals. Date of last office visit in primary care: 08/04/2023 Date of next office visit in primary care: 02/06/2024 Please advise. Thank you. Leena Puri LPN. [facility] 08-23-2023 Miscellaneous Notes Patient has been identified by name and date of : Yes Patient phones for refill(s): Requested Prescriptions Pending Prescriptions Disp Refills metFORMIN ER (GLUCOPHAGE XR) 500 mg 24 hr tablet 360 tablet 3 Sig: Take 2 tablets by mouth two times a day before meals. Date of last office visit in primary care: 08/04/2023 Date of next office visit in primary care: 02/06/2024 Please advise. Thank you. Leena Puri LPN. documented in this encounter [facility] 08-04-2023 History of Presen t illness Narrative This note was created using Aradigm[employer]. Subjective Robin Fernández is a 48 year old male. He was tolerating bupropion well, and there was improvement in mood. He was also looking forward to a change in his organization that may improve his stress levels. His hypertension was better. We reviewed his labs. 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 Review of Systems Constitutional: Negative for fatigue and fever. HENT: Negative. Respiratory: Negative. Cardiovascular: Negative. Gastrointestinal: Negative. Genitourinary: Negative. Musculoskeletal: Negative. Neurological: Negative. Psychiatric/Behavioral: Negative. ACTIVE PROBLEM LIST Non-Seasonal Allergic Rhinitis Essential Hypertension Gastroesophageal Reflux Disease Other Microscopic Hematuria Anosmia Mixed Hyperlipidemia Controlled Type 2 Diabetes Mellitus With Stage 1 Chronic Kidney Disease, Without Long-Term Current Use of Insulin ([facility]) ([facility]) Social History Tobacco Use Smoking status: Never Smokeless tobacco: Never Vaping Use Vaping Use: Never used Substance Use Topics Alcohol use: Yes Drug use: Never Objective BP 130/85 Pulse 94 Resp 16 Ht 185.4 cm (6' 1) Wt (!) 140.7 kg (310 lb 3.2 oz) SpO2 97% BMI 40.93 kg/m Physical Exam Constitutional: Appearance: He is not ill-appearing. HENT: Head: Normocephalic. Eyes: Extraocular Movements: Extraocular movements intact. Conjunctiva/sclera: Conjunctivae normal. Cardiovascular: Heart sounds: Normal heart sounds. Pulmonary: Breath sounds: Normal breath sounds. Abdominal: Palpations: Abdomen is soft. Tenderness: There is no abdominal tenderness. Hernia: No hernia is present. Musculoskeletal: General: No tenderness. Right lower leg: No edema. Left lower leg: No edema. Lymphadenopathy: Cervical: No cervical adenopathy. Skin: Findings: No rash. Neurological: Mental Status: He is alert. Gait: Gait normal. Psychiatric: Mood and Affect: Mood normal. Latest Ref [facility] 06/22/2023 Protein, Total 6.3 - 8.0 g/dL 7.8 Albumin 3.9 - 4.9 g/dL 4.3 Calcium 8.5 - 10.2 mg/dL 10.0 Bilirubin, Total 0.2 - 1.3 mg/dL 0.4 Alkaline Phosphatase 38 - 113 U/L 76 AST 14 - 40 U/L 32 ALT 10 - 54 U/L 35 Glucose 74 - 99 mg/dL 163 (H) BUN 9 - 24 mg/dL 20 Creatinine 0.73 - 1.22 mg/dL 1.34 (H) Sodium 136 - 144 mmol/L 139 Potassium 3.7 - 5.1 mmol/L 4.7 Chloride 97 - 105 mmol/L 103 CO2 22 - 30 mmol/L 24 Anion Gap 9 - 18 mmol/L 12 eGFR >=60 mL/min/1.73m 66 Cholesterol, Total <200 mg/dL 193 Triglyceride <150 mg/dL 218 (H) HDL Cholesterol >39 mg/dL 29 (L) Non HDL Cholesterol <130 mg/dL 164 (H) Fasting Time hrs 18 VLDL Cholesterol <30 mg/dL 44 (H) TC:HDL Ratio <5.10 6.66 (H) LDL Cholesterol <100 mg/dL 120 (H) LDL:HDL Ratio <2.54 4.14 (H) Hemoglobin A1C 4.3 - 5.6 % 7.7 (H) Estimated Average Glucose mg/dL 174 Uric Acid 4.0 - 8.1 mg/dL 6.9 Legend: (H) High (L) Low Assessment and Plan 1. Depressive disorder - ICD9: 311, ICD10: F32.A (primary diagnosis) Improved. Continue medication. 2. Essential hypertension - ICD9: 401.9, ICD10: I10 - Improving control - Continue current medications - Encouraged sodium restriction, DASH or Mediterranean diet - Discussed need for and benefit of weight loss. BMI 40.93 kg/(m^2) 3. Controlled type 2 diabetes mellitus with stage 1 chronic kidney disease, without long-term current use of insulin (HCC) (HCC) - ICD9: 250.40, 585.1, ICD10: E11.22, N18.1 - Worsening control - Continue current medications - Counseled on healthy diet and regular exercise - eGFR: 66 Stable - BASIC METABOLIC PANEL - HEMOGLOBIN A1C - ALBUMIN/CREATININE RATIO, URINE 4. Mixed hyperlipidemia - ICD9: 272.2, ICD10: E78.2 - Improving control - LIPID PANEL BASIC 5. Anosmia - ICD9: 781.1, ICD10: R43.0 - We discussed referral for nerve block. He declined. Form completed. Benji Amado MD documented in this encounter [facility] 07-18-2023 Telephone encounter Note Patient has been identified by name and date of : Yes Patient phones for refill(s): Requested Prescriptions Pending Prescriptions Disp Refills buPROPion XL (WELLBUTRIN XL) 150 mg 24 hr tablet [Pharmacy Med Name: BUPROPION HCL XL 150 MG TABLET] 90 tablet 1 Sig: TAKE 1 TABLET BY MOUTH EVERY DAY Date of last office visit in primary care: 06/22/2023 Date of next office visit in primary care: 08/04/2023 Please advise. Thank you. Insurance requesting 90 day supply. Bernie Hagan MA. [facility] 07-18-2023 Miscellaneous Notes Patient has been identified by name and date of : Yes Patient phones for refill(s): Requested Prescriptions Pending Prescriptions Disp Refills buPROPion XL (WELLBUTRIN XL) 150 mg 24 hr tablet [Pharmacy Med Name: BUPROPION HCL XL 150 MG TABLET] 90 tablet 1 Sig: TAKE 1 TABLET BY MOUTH EVERY DAY Date of last office visit in primary care: 06/22/2023 Date of next office visit in primary care: 08/04/2023 Please advise. Thank you. Insurance requesting 90 day supply. Bernie Hagan MA. documented in this encounter [facility] 07-06-2023 History of Presen t illness Narrative This note was created using Arigo. Subjective Robin Fernández is a 48 year old male. HPI Presents with right-sided rib pain for a week. He states he was wrestling with his son when he landed on his son's knee on his left ribs. States since then it has been painful to take of breath and with some movements. He has not noticed any bruising. He has not broken a rib previously. He denies fevers or chills. No cough. He has taken ibuprofen here and there for pain. Review of Systems Constitutional: Negative. HENT: Negative. Respiratory: Negative. Cardiovascular: Left rib pain Gastrointestinal: Negative. All other systems reviewed and are negative. PAST MEDICAL HISTORY Diagnosis Date Anosmia 07/02/2020 COVID-19 02/08/2020 Essential hypertension 07/03/2020 Gastroesophageal reflux disease 12/22/2020 Hypertension 2010 Mixed hyperlipidemia 05/07/2021 Non-seasonal allergic rhinitis 04/06/2019 Sleep apnea Uncontrolled type 2 diabetes mellitus with hyperglycemia (HCC) 12/22/2020 Current Outpatient Medications Medication Sig Dispense Refill pioglitazone (ACTOS) 15 mg tablet Take 1 tablet by mouth once daily. [address] (PROTONIX) 40 mg tablet Take 1 tablet by mouth daily before breakfast. Take on empty stomach, 1/2 hr before meal. 90 tablet 3 amLODIPine (NORVASC) 10 mg tablet Take 1 tablet by mouth once daily. 90 tablet 3 fluticasone (FLONASE) 50 mcg/actuation nasal spray Use 2 Sprays in each nostril once daily. Rinse mouth after use. 18.2 mL 11 losartan (COZAAR) 50 mg tablet Take 1 tablet by mouth once daily. 90 tablet 3 buPROPion XL (WELLBUTRIN XL) 150 mg 24 hr tablet Take 1 tablet by mouth once daily. 30 tablet 2 metFORMIN ER (GLUCOPHAGE XR) 500 mg 24 hr tablet Take 2 tablets by mouth twice daily before meals. 360 tablet 3 albuterol HFA (PROVENTIL HFA, VENTOLIN HFA) 90 mcg/actuation inhaler Inhale 2 Puffs as instructed every 4 hours as needed for wheezing/shortness of breath. (Patient not taking: Reported on 07/06/2023) 1 Each 0 blood sugar diagnostic (BLOOD GLUCOSE TEST) test strip Test blood sugar(s) 2 times daily. Dx: Type 2 DM - Uncontrolled E11.65 Insulin: No (Patient not taking: Reported on 07/06/2023) 100 Strip 5 Lancets lancets Test blood sugar(s) 2 times daily. Dx: Type 2 DM - Uncontrolled E11.65 Insulin: No (Patient not taking: Reported on 06/22/2023) 100 Each 11 No current facility-administered medications for this visit. PAST SURGICAL HISTORY Procedure Laterality Date CARPAL TUNNEL Bilateral 2007 COLONOSCOPY SCREENING 05/17/2022 hyperplastic polyps x 2 ROTATOR CUFF REPAIR Left 2019 Dr. Yancey VASECTOMY UNI/BI SPX W/POSTOP SEMEN EXAMS 2007 FAMILY HISTORY Problem Relation Age of Onset Hypertension Mother Blood Disease Mother leukemia Hypertension Father Coronary Artery Disease Father stented Ischemic Heart Disease Father CABG Arrythmias Brother Heart Brother 47 Valve replacement Diabetes Maternal Grandmother Coronary Artery Disease Maternal Grandmother Diabetes Maternal Grandfather Coronary Artery Disease Maternal Grandfather cabg Diabetes Paternal Grandfather Coronary Artery Disease Paternal Grandfather cabg Social History Tobacco Use Smoking status: Never Smokeless tobacco: Never Vaping Use Vaping Use: Never used Substance Use Topics Alcohol use: Yes Drug use: Never Objective BP 152/80 Pulse 103 Temp 36.9 C (98.4 F) Resp 21 Wt (!) 137.6 kg (303 lb 5.7 oz) SpO2 98% BMI 40.02 kg/m Physical Exam Vitals reviewed. Constitutional: Appearance: Normal appearance. HENT: Head: Normocephalic and atraumatic. Cardiovascular: Rate and Rhythm: Normal rate and regular rhythm. Heart sounds: Normal heart sounds. Pulmonary: Effort: Pulmonary effort is normal. Breath sounds: Normal breath sounds. Comments: Patient is tender along the anterior lateral left lower ribs. No tenderness over the spleen or abdomen on the left side. There is no bruising. No crepitus. Skin: General: Skin is warm and dry. Neurological: Mental Status: He is alert. Assessment and Plan ASSESSMENT/PLAN: 1. Rib injury - ICD9: 959.11, ICD10: S29.9XXA X-rays are negative for displaced rib fracture. Discussed pain management options including possible prednisone and muscle relaxer but patient declined. Will continue ibuprofen, I did suggest Tylenol. Follow-up with PCP if not improving over the next 1 to 2 weeks. Patient agreeable with plan. - XR RIBS/CHEST 3V AP RIB/OBLS/CXR LEFT Vani Freedman PA-C documented in this encounter [facility] 07-06-2023 History of Presen t illness Narrative Radiology Service Progress Note PATIENT NAME: Robin Fernández DATE OF SERVICE: July 06, 2023 TIME: 4:55 PM PATIENT IDENTITY VERIFICATION COMPLETED USING TWO (2) IDENTIFIERS: Name and Date of confirmed by patient verbally. FALL SCREENING: Has the patient had 2 falls in the last year or 1 fall with injury or currently using an Ambulatory Assistive Device (Walker, Cane, Wheelchair, Crutches, etc.)? No PATIENT GENDER DATA: Male PATIENT RELEVANT IMPLANT DATA REVIEWED: Yes PATIENT PRESENTS WITH AN IMPLANTABLE OR ATTACHED ACCOUNTS MANAGER: No RADIOLOGY DEPARTMENT: General X-ray: Exam(s) Completed: Rib X-Ray: Left PERIPHERAL IV DATA: Not applicable SIGNED BY: RT Nixon(R) July 06, 2023 4:55 PM documented in this encounter [facility] 06-22-2023 History of Presen t illness Narrative This note was created using [employer]. Subjective Patient presents with: F/U 6 months Robin Fernández is a 48 year old male. His hypertension was not well controlled. Diabetes was not checked much but reportedly okay. He had not yet done his labs. He complained of depression and anxiety, probably for the past year or more. He felt less motivation, loss of interest, and irritability. Symptoms have become more noticeable the past 6 months. A major factor seemed to be work related stress. A related concern was lack of libido or erectile dysfunction. He denied having marital or family issues. Another concern raised was chronic scalp lesions in the back of his neck. Lesions were mostly rough, occasionally itchy but not painful, tender, draining or bleeding. He went to [facility] years ago, but developed suicidal ideations from the medication recommended, so he never went back. He had been applying Benzoyl peroxide with some improvement. Review of Systems Constitutional: Negative for fatigue. Respiratory: Negative for chest tightness and shortness of breath. Cardiovascular: Negative for chest pain, palpitations and leg swelling. Gastrointestinal: Negative. Skin: See HPI. Neurological: Negative for dizziness and headaches. Psychiatric/Behavioral: Positive for dysphoric mood. Negative for self-injury, sleep disturbance and suicidal ideas. ACTIVE PROBLEM LIST Non-Seasonal Allergic Rhinitis Essential Hypertension Gastroesophageal Reflux Disease Uncontrolled Type 2 Diabetes Mellitus With Hyperglycemia (Hcc) Other Microscopic Hematuria Anosmia Mixed Hyperlipidemia Controlled Type 2 Diabetes Mellitus With Stage 1 Chronic Kidney Disease, Without Long-Term Current Use of Insulin (Hcc) (Hcc) Social History Tobacco Use Smoking status: Never Smokeless tobacco: Never Vaping Use Vaping Use: Never used Substance Use Topics Alcohol use: Yes Drug use: Never Current Outpatient Medications Medication Sig albuterol HFA (PROVENTIL HFA, VENTOLIN HFA) 90 mcg/actuation inhaler Inhale 2 Puffs as instructed every 4 hours as needed for wheezing/shortness of breath. losartan (COZAAR) 25 mg tablet Take 1 tablet by mouth once daily. metFORMIN ER (GLUCOPHAGE XR) 500 mg 24 hr tablet Take 2 tablets by mouth twice daily before meals. pioglitazone (ACTOS) 15 mg tablet Take 1 tablet by mouth once daily. pantoprazole DR (PROTONIX) 40 mg tablet Take 1 tablet by mouth daily before breakfast. Take on empty stomach, 1/2 hr before meal. amLODIPine (NORVASC) 10 mg tablet Take 1 tablet by mouth once daily. fluticasone (FLONASE) 50 mcg/actuation nasal spray Use 2 Sprays in each nostril once daily. Rinse mouth after use. blood sugar diagnostic (BLOOD GLUCOSE TEST) test strip Test blood sugar(s) 2 times daily. Dx: Type 2 DM - Uncontrolled E11.65 Insulin: No (Patient not taking: Reported on 06/22/2023) Lancets lancets Test blood sugar(s) 2 times daily. Dx: Type 2 DM - Uncontrolled E11.65 Insulin: No (Patient not taking: Reported on 06/22/2023) No current facility-administered medications for this visit. Objective Blood Pressure 149/96 (BP Site: Left Arm, BP Position: Sitting, BP Cuff Size: Large Adult) Pulse 89 Temperature 36.7 C (98.1 F) (Temporal) Weight (Abnormal) 138.3 kg (305 lb) Body Mass Index 40.24 kg/m Physical Exam Constitutional: Appearance: Normal appearance. HENT: Head: Normocephalic. Cardiovascular: Rate and Rhythm: Normal rate. Heart sounds: No murmur heard. No gallop. Pulmonary: Effort: Pulmonary effort is normal. Breath sounds: Normal breath sounds. Musculoskeletal: Right lower leg: No edema. Left lower leg: No edema. Skin: Comments: Clustered papules along the hairline of the posterior neck. Non tender, non inflammed, dry. Neurological: Mental Status: He is alert. Psychiatric: Mood and Affect: Mood normal. Behavior: Behavior normal. Thought Content: Thought content normal. Judgment: Judgment normal. Row Labels Depression Screening PHQ-2 Score LANDON-2 Total Score 06/25/2023 4 1 Depression screening tool completed and reviewed. Based on score and interview, patient is already diagnosed with depression. Screening tool discussed with patient, and I recommended starting medication. 06/22/2023 CP PHQ9 Little interest or pleasure 2 - More than half the days Feeling down, depressed, hopeless 2 - More than half the days Trouble falling or staying asleep, sleeping too much 0 - Not at all Feeling tired, having little energy 2 - More than half the days Poor appetite or overeating 3 - Nearly every day Feeling bad about yourself, failure or you have let yourself/family down 1 - Several days Trouble concentrating on things 0 - Not at all Moving or speaking so slowly, or fidgety or restless 0 - Not at all Thoughts that you would be better off , or of hurting yourself in some way 1 - Several days How difficult have these problems made things Not difficult at all Interpretation of Total Score 10-14 Moderate depression LANDON-7 ANXIETY SCALE Feeling nervous, anxious, or on edge 1 Several days Not being able to stop or control worrying 0 Not at all sure Worrying too much about different things 0 Not at all sure Trouble relaxing 0 Not at all sure Being so restless that it's hard to sit still 0 Not at all sure Being easily annoyed or irritable 2 Over half the days Feeling afraid as if something awful might happen 0 Not at all sure LANDON-7 Anxiety Score 3 If you checked off any problems, how difficult have these problems made it for you to do your work, take care of things at home, or get along with other people? Not difficult at all Assessment and Plan 1. Depressive disorder - ICD9: 311, ICD10: F32.A (primary diagnosis) - He declined referral for counseling. - BUPROPION XL 150 MG TAB. Take one(1) tablet daily. Shared medical decision making was done. Options were reviewed. Discussed medication dosage, usage, goals of therapy, and side effects. 2. Gastroesophageal reflux disease, unspecified whether esophagitis present - ICD9: 530.81, ICD10: K21.9 - Controlled on medication. - PANTOPRAZOLE 40 MG TABLET,DELAYED RELEASE 3. Essential hypertension - ICD9: 401.9, ICD10: I10 - Worsening control - Continue current medications - Recommend home blood pressure monitoring, to bring results to next visit - Encouraged sodium restriction, DASH or Mediterranean diet - Discussed need for and benefit of weight loss. BMI 40.24 kg/(m^2) - AMLODIPINE 10 MG TABLET 4. Non-seasonal allergic rhinitis, unspecified trigger - ICD9: 477.8, ICD10: J30.89 Refilled. - FLUTICASONE PROPIONATE 50 MCG/ACTUATION NASAL SPRAY,SUSPENSION 5. Mixed hyperlipidemia - ICD9: 272.2, ICD10: E78.2 - Control undetermined, due for labs - Counseled on healthy diet and regular exercise - Discussed need for and benefit of weight loss. BMI 40.24 kg/(m^2) 6. Controlled type 2 diabetes mellitus with stage 1 chronic kidney disease, without long-term current use of insulin (HCC) (HCC) - ICD9: 250.40, 585.1, ICD10: E11.22, N18.1 - Control undetermined, due for labs - Continue current medications 7. Anosmia - ICD9: 781.1, ICD10: R43.0 He was interested in participating in trials, he read [facility] was doing for this. We will look for the referral process. 8. Loss of libido - ICD9: 799.81, ICD10: R68.82 - His T level was normal previously. We will consider PDE4 inhibitors, but we agreed to try first medication for mood disorder. Benji Amado MD documented in this encounter [facility] 03-09-2023 History of Presen t illness Narrative Radiology Service Progress Note PATIENT NAME: Robin Fernández DATE OF SERVICE: March 09, 2023 TIME: 8:56 AM PATIENT IDENTITY VERIFICATION COMPLETED USING TWO (2) IDENTIFIERS: Name and Date of confirmed by patient verbally. FALL SCREENING: Has the patient had 2 falls in the last year or 1 fall with injury or currently using an Ambulatory Assistive Device (Walker, Cane, Wheelchair, Crutches, etc.)? No PATIENT GENDER DATA: Male PATIENT RELEVANT IMPLANT DATA REVIEWED: Not Applicable RADIOLOGY DEPARTMENT: General X-ray: Exam(s) Completed: Chest X-Ray PERIPHERAL IV DATA: Not applicable SIGNED BY: RT Zoraida(R) March 09, 2023 8:56 AM documented in this encounter [facility] 12-27-2022 Miscellaneous Notes TC to patient who verbalized understanding of providers message below and has no questions at this time. MICHAEL Farmer ----- Message from Benji Amado MD sent at 12/27/2022 9:19 AM EDT ----- 1) Diabetes controlled. 2) Mild kidney disease. Urine negative for protein. Stress hydration. Limit NSAID use. Stress control of risks diabetes and hypertension. 3) Testosterone normal. Fasting labs in 6 months. documented in this encounter [facility] 12-20-2022 Instructions Benji Amado MD - 12/20/2022 1:23 PM EDT When about to run out: We will reduce amlodipine to 5 mg. We will stop lisinopril, and replace with losartan for blood pressure. Have eye exam for diabetes. documented in this encounter [facility] 12-20-2022 History of Presen t illness Narrative This note was created using [employer]. Subjective Robin Fernández is a 47 year old male. He had acute left elbow pain and stiffness this weekend for no apparent reason. This was resolving. He developed significant edema and numbness of the feet when he was vacationing this summer. He reduced cocktail consumption and this resolved. He self managed feet blisters from walking on hot sand. He had a persistent, nagging dry cough for more than one year. He noted loss of libido and end of the day fatigue for months. He was interested in testing his testosterone level. He was not testing his glucose. Review of Systems Constitutional: Positive for fatigue. Negative for fever and unexpected weight change. HENT: Negative for congestion and postnasal drip. Eyes: Negative for visual disturbance. Respiratory: Positive for cough. Negative for shortness of breath and wheezing. Cardiovascular: Positive for leg swelling. Negative for chest pain and palpitations. Gastrointestinal: Negative. Genitourinary: Negative. ACTIVE PROBLEM LIST Non-Seasonal Allergic Rhinitis Essential Hypertension Gastroesophageal Reflux Disease Uncontrolled Type 2 Diabetes Mellitus With Hyperglycemia (Hcc) Other Microscopic Hematuria Anosmia Mixed Hyperlipidemia Current Outpatient Medications Medication Sig metFORMIN ER (GLUCOPHAGE XR) 500 mg 24 hr tablet Take 2 tablets by mouth twice daily before meals. pioglitazone (ACTOS) 15 mg tablet Take 1 tablet by mouth once daily. pantoprazole DR (PROTONIX) 40 mg tablet Take 1 tablet by mouth daily before breakfast. Take on empty stomach, 1/2 hr before meal. lisinopril (ZESTRIL) 10 mg tablet Take 1 tablet by mouth once daily. amLODIPine (NORVASC) 10 mg tablet Take 1 tablet by mouth once daily. fluticasone (FLONASE) 50 mcg/actuation nasal spray Use 2 Sprays in each nostril once daily. Rinse mouth after use. blood sugar diagnostic (BLOOD GLUCOSE TEST) test strip Test blood sugar(s) 2 times daily. Dx: Type 2 DM - Uncontrolled E11.65 Insulin: No Lancets lancets Test blood sugar(s) 2 times daily. Dx: Type 2 DM - Uncontrolled E11.65 Insulin: No No current facility-administered medications for this visit. Objective BP 126/76 (BP Site: Right Arm, BP Position: Sitting, BP Cuff Size: Large Adult) Pulse 77 Wt 127 kg (280 lb) BMI 36.94 kg/m Physical Exam Constitutional: General: He is not in acute distress. Appearance: He is not ill-appearing. Eyes: Conjunctiva/sclera: Conjunctivae normal. Cardiovascular: Rate and Rhythm: Normal rate and regular rhythm. Heart sounds: No murmur heard. No gallop. Pulmonary: Effort: No respiratory distress. Breath sounds: No wheezing or rales. Musculoskeletal: Left elbow: No swelling, deformity or effusion. Normal range of motion. No tenderness. Right lower leg: No edema. Left lower leg: No edema. Neurological: Mental Status: He is alert. Feet:Shoes and socks removed, No deformities, ulcers, calluses, normal distal pulses, sensitive to 10 gm monofilament, and pea sized tendon cyst of the right dorsal foot, non tender. Assessment and Plan 1. Uncontrolled type 2 diabetes mellitus with hyperglycemia (HCC) - ICD9: 250.02, ICD10: E11.65 (primary diagnosis) - Control undetermined, due for labs - Continue current medications - BASIC METABOLIC PNL - HGB A1C - ALBUMIN/CREAT RATIO RND UR 2. Essential hypertension - ICD9: 401.9, ICD10: I10 - Controlled - See printed instructions or information. We will make changes due to other symptoms. 3. Mixed hyperlipidemia - ICD9: 272.2, ICD10: E78.2 - Controlled - Continue current medications 4. Chronic cough - ICD9: 786.2, ICD10: R05.3 Switch Lisinopril to Losartan for likely ACEI cough. He wanted to finish his current supply first. 5. Edema leg - ICD9: 782.3, ICD10: R60.0 Reduce amlodipine. Start higher dose losartan. 6. Left elbow pain - ICD9: 719.42, ICD10: M25.522 Etiology not clear. Call for recurrence. 7. Tendon cysts - ICD9: 727.42, ICD10: M67.80 Right dorsal foot. Observe only. Podiatry if symptomatic. 8. Fatigue, unspecified type - ICD9: 780.79, ICD10: R53.83 - CBC - TESTOSTERONE TOTAL 9. Loss of libido - ICD9: 799.81, ICD10: R68.82 - TESTOSTERONE TOTAL Benji Amado MD documented in this encounter [facility] 07-01-2022 Miscellaneous Notes Sherita sent patient My Chart message to follow up and see if Omar Co-pay Assistance number was helpful. Sherita left patient message that Sw will send My Chart message to patient to discuss prescription cost issues. Sherita left message for patient to return SW call to discuss cost concerns regarding diabetes medication. Sw received message of options such as Omar,Ozempic or Mounjeo. Can see about copay assistance options. documented in this encounter [facility] 06-25-2022 Miscellaneous Notes The following approved medication requests have been transmitted electronically. Requested Prescriptions Signed Prescriptions Disp Refills dulaglutide (TRULICITY) 0.75 mg/0.5 mL pen injector 4 Each 0 Sig: Inject 0.75 mg subcutaneously one time a week. Authorizing Provider: LAWANDA TINOCO APRN.CNP Patient said he used to take Trulicity, but then his insurance changed and it wasn't covered. Said our bilingual social worker gave him a phone number to call the company to see if he can get a discounted rate. He called and wants to know if we can send a rx to [facility] in [place] so he can uses the discount code he got. documented in this encounter [facility] 06-23-2022 History of Presen t illness Narrative This note was created using Aradigmriter. Subjective Robin Fernández is a 47 year old male. He felt well. His labs needed updating, as he wasn't monitoring his home glucose. Hypertension was well controlled. He wished he could get back on Trulicity, but coverage was the issue. Review of Systems ACTIVE PROBLEM LIST Non-Seasonal Allergic Rhinitis Essential Hypertension Gastroesophageal Reflux Disease Uncontrolled Type 2 Diabetes Mellitus With Hyperglycemia (Hcc) Other Microscopic Hematuria Anosmia Mixed Hyperlipidemia Social History Tobacco Use Smoking status: Never Smokeless tobacco: Never Vaping Use Vaping Use: Never used Substance Use Topics Alcohol use: Yes Drug use: Never Current Outpatient Medications Medication Sig blood sugar diagnostic (BLOOD GLUCOSE TEST) test strip Test blood sugar(s) 2 times daily. Dx: Type 2 DM - Uncontrolled E11.65 Insulin: No Lancets lancets Test blood sugar(s) 2 times daily. Dx: Type 2 DM - Uncontrolled E11.65 Insulin: No metFORMIN ER (GLUCOPHAGE XR) 500 mg 24 hr tablet Take 2 tablets by mouth twice daily before meals. pioglitazone (ACTOS) 15 mg tablet Take 1 tablet by mouth once daily. pantoprazole DR (PROTONIX) 40 mg tablet Take 1 tablet by mouth daily before breakfast. Take on empty stomach, 1/2 hr before meal. lisinopril (ZESTRIL) 10 mg tablet Take 1 tablet by mouth once daily. amLODIPine (NORVASC) 10 mg tablet Take 1 tablet by mouth once daily. fluticasone (FLONASE) 50 mcg/actuation nasal spray Use 2 Sprays in each nostril once daily. Rinse mouth after use. No current facility-administered medications for this visit. Objective BP 126/78 (BP Site: Left Arm, BP Position: Sitting, BP Cuff Size: Large Adult) Pulse 88 Resp 18 Wt 133.4 kg (294 lb) BMI 38.79 kg/m Physical Exam Constitutional: General: He is not in acute distress. Appearance: He is not ill-appearing. Cardiovascular: Rate and Rhythm: Normal rate and regular rhythm. Heart sounds: No murmur heard. No gallop. Pulmonary: Effort: Pulmonary effort is normal. Breath sounds: Normal breath sounds. Musculoskeletal: Right lower leg: No edema. Left lower leg: No edema. Neurological: Mental Status: He is alert. Assessment and Plan 1. Uncontrolled type 2 diabetes mellitus with hyperglycemia (HCC) - ICD9: 250.02, ICD10: E11.65 (primary diagnosis) - Look into pharmacy programs for Trulicity or similar medication. - METFORMIN ER 500 MG TABLET,EXTENDED RELEASE 24 HR 2. Gastroesophageal reflux disease, unspecified whether esophagitis present - ICD9: 530.81, ICD10: K21.9 Controlled. - PANTOPRAZOLE 40 MG TABLET,DELAYED RELEASE 3. Essential hypertension - ICD9: 401.9, ICD10: I10 - good control - LISINOPRIL 10 MG TABLET - AMLODIPINE 10 MG TABLET 4. Non-seasonal allergic rhinitis, unspecified trigger - ICD9: 477.8, ICD10: J30.89 Refilled. - FLUTICASONE PROPIONATE 50 MCG/ACTUATION NASAL SPRAY,SUSPENSION 5. Need for vaccination - ICD9: V05.9, ICD10: Z23 - TDAP VACCINE, AGE 7+ YR (ADACEL, BOOSTRIX) Benji Amado MD documented in this encounter [facility] 06-22-2022 Instructions Benji Amado MD - 06/22/2022 11:52 AM EDT NON FASTING BLOOD WORK TODAY. documented in this encounter [facility] 05-24-2022 History of Presen t illness Narrative In lieu of an in-person visit due to COVID-19 concerns, a telephone visit was performed on the patient. Visit was initially scheduled as virtual, however patient was unable to connect via video platform and requested to complete visit via telephone. Patient is aware that I am not fully able to assess symptoms and do a full physical examination including vital signs assessment at this time. Patient consents to this encounter. No video was used in the evaluation of this patient, as the patient preferred a telephone call. I personally called patient by telephone. FOLLOW UP VISIT - ENDOSCOPY NAME: Robin [facility]ero [facility] NO.: [id number] DATE OF SERVICE: 05/24/2022 : 1975 REFERRING PHYSICIAN: Benji Amado MD Robin is a patient referred to our surgeons via [facility] for screening colonoscopy. Dr. Hendricks performed lower endoscopy on 05/17/22. Findings per operative report showed: - Preparation of the colon was fair. - Two small polyps in the rectum and in the sigmoid colon, removed with a jumbo cold forceps. Resected and retrieved. - Non-bleeding internal hemorrhoids. - The examination was otherwise normal. Pathology demonstrated: FINAL DIAGNOSIS A. Colon, sigmoid, polyp, biopsy: - Hyperplastic polyp. B. Rectum, polyp, biopsy: - Hyperplastic polyp. The patient notes no complaints since the procedure. Assessment IMPRESSION: benign hyperplastic polyps PLAN: The operative findings and pathology report were reviewed with the patient, and the patient has had the opportunity to ask questions and have questions answered. If the patient notes any problems or changes in bowel function, the patient should contact me immediately. Otherwise I recommend follow up endoscopy in 5 years due to fair bowel prep. HM updated and recall letter generated. Patient verbalized understanding of all above and agreed with the plan Diagnoses: (K63.5) Hyperplastic polyp of sigmoid colon (primary encounter diagnosis) (K62.1) Hyperplastic rectal polyp I spent a total of 22 minutes on the date of the service which included preparing to see the patient, completing clinical documentation, obtaining and/or reviewing separately obtained history, counseling and educating the patient/family/caregiver, independently interpreting results (not separately reported), and communicating results to the patient/family/caregiver. Marcela Hernandez PA-C documented in this encounter [facility] 03-29-2022 Miscellaneous Notes Pt called and is notified of providers results and instructions. Pt voices understanding. Marcela Hammond RN Metformin increased to 4 tablets daily. Actos added to improve insulin sensitivity. One tablet daily, generic. Watch for edema. Pt called and is notified of providers message and instructions. Pt voices understanding, he states he has been taking the metformin 500 mg 2 tablets BID on and off for about 2-3 months now. He states he takes it that way at least 3 days a week. Pt states he is not going to take the Farxiga as it would cost him $360 for the prescription. Marcela Hammond RN Left message to call & speak to nurse. Leena Puri LPN I recommend maximizing metformin to two 500 mg tablets twice a day. For more novel therapies, we can try Farxiga 5 mg one tablet daily. This makes the kidneys release glucose to the urine. There are benefits to the kidneys and the heart in diabetes. This is not a generic medication. Let me know his decision for prescriptions orders. Patient calling to update [facility] and PCP that the Victoza that was recently ordered for him will cost him $361.00 and he cannot afford this. Please advise patient. Thank you. 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 Copied for medical records. 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 Message left to pt with info. documented in this encounter [facility] 03-22-2022 Instructions Benji Amado MD - 03/22/2022 4:48 PM EST Health Information For Patients and the Community How to Prepare for Your Colonoscopy Using Golytely, Nulytely, Trilyte or Colyte Preparations IMPORTANT - Please Read These Instructions at Least 2 Weeks Before Your Colonoscopy [place] Instructions: ?Your bowel must be empty so that your doctor can clearly view your colon. Follow all of the instructions in this handout EXACTLY as they are written. If you do NOT follow the directions for when to start drinking the bowel preparation (see next page), your colonoscopy WILL be cancelled. ?Do NOT eat any solid food the ENTIRE day before your colonoscopy. ?Buy your bowel preparation at least 5 days before your colonoscopy. ?Do NOT mix the solution until the day before your colonoscopy. Designated Line Tender on the Day of Your Exam A responsible family member or friend MUST come with you to your colonoscopy and REMAIN in the endoscopy area until you are discharged! You are NOT ALLOWED to drive, take a taxi or bus, or leave the Endoscopy Center ALONE. If you do not have a responsible refuse driver (family member or friend) with you to take you home, your exam cannot be done with sedation and will be cancelled. Medications Some of the medicines you take may need to be stopped or adjusted before your colonoscopy. You MUST call the doctor who ordered any of the following medicines at least 2 weeks before your colonoscopy. ?Blood thinners -- such as Coumadin (warfarin), Plavix (clopidogrel), Ticlid (ticlopidine hydrochloride), Agrylin (anagrelide), Xarelto (Rivaroxaban), Pradaxa (Dabigatran), Eliquis (Apixaban), and Effient (Prasugrel). ?Insulin or diabetes pills. Please call the doctor that monitors your glucose levels. Your insulin dosage may need to be adjusted due to the diet restrictions required with this bowel preparation. (Please bring your diabetes medicines with you on the day of your procedure.) If you take aspirin, take it and ALL other medications prescribed by your doctor. On the day of your colonoscopy, take your medications with a sip of water. Revised 03/2016 1 Five (5) Days Before Your Colonoscopy ?Do NOT take medicines that stop diarrhea -- such as Imodium , Kaopectate , or Pepto Bismol . ?Do NOT take fiber supplements -- such as Metamucil , Citrucel , or Perdiem . ?Do NOT take products that contain iron -- such as multi-vitamins -- (the label lists what is in the products). ?Do NOT take vitamin E. Buy the prescription bowel preparation solution at your local pharmacy or drugstore pharmacy. Three (3) Days Before Your Colonoscopy Do NOT eat high-fiber foods -- such as popcorn, beans, seeds (flax, sunflower, quinoa), multigrain bread, nuts, salad/vegetables, or fresh and dried fruit. One (1) Day Before Your Colonoscopy Only drink clear liquids the ENTIRE DAY before your colonoscopy. Do NOT eat any solid foods. Drink at least 8 ounces of clear liquids every hour after waking up. The clear liquids you can drink include: ?water, apple, or white grape juice; broth; coffee or tea (without milk or creamer); clear carbonated beverages such as starla rudy or lemon-[place] soda; Gatorade or other sports drinks (not red); Allen-Aid or other flavored drinks (not red). You may eat plain jello or other gelatins (not red) or popsicles (not red). Do NOT drink alcohol on the day before or the day of the procedure. 2 Revised 03/2016 When to Mix and Drink Your Bowel Prep Follow the instructions on the label. After mixing, place the solution in the refrigerator for a couple of hours before drinking. You may add the flavor packet that came with the bowel preparation. DO NOT add ice, sugar or any flavorings to the solution. Evening Before Your Colonoscopy ?Start drinking the bowel preparation at 6 PM the evening before your colonoscopy. Drink an 8-oz glass of bowel preparation every 10 minutes. You must finish drinking the solution by 9 PM the night before your scheduled procedure. ?You may continue to drink clear liquids only until midnight. Do NOT eat or drink ANYTHING after midnight the night before your procedure or your procedure may be cancelled. This is for your safety and will reduce the risk of having any food or liquid in your stomach move into your lungs (aspiration) during a procedure. If you take aspirin, take it and ALL other prescribed medicines with a sip of water on the day of your colonoscopy. Contact Information: If you are unable to keep your appointment or have any questions about the instructions, please call the facility where the procedure is being performed. Call between the hours of 8:00 AM and 5:00 PM. If you are calling after 5:00 PM, please call Nurse concrete building assembler at [phone]. [facility] [address] [place] [address] [id number] Index # [id number] Revised 03/2016 3 Colonoscopy Procedure Overview Please Read Prior to the Procedure What is a Colonoscopy A colonoscopy is an outpatient procedure in which the inside of the large intestine (colon and rectum) is examined. A colonoscopy is commonly used to evaluate gastrointestinal symptoms, such as rectal and intestinal bleeding, abdominal pain, or changes in bowel habits. Colonoscopies are also performed in individuals without symptoms to check for colorectal polyps or cancer. A screening colonoscopy is recommended for anyone 50 years of age and older, and for anyone with parents, siblings or children with a history of colorectal cancer or polyps. What Happens Before a Colonoscopy To have a successful colonoscopy, your bowel must be empty so that your physician can clearly view the colon. To do this, it is very important to read and follow all of the instructions given to you at least 2 weeks BEFORE your exam. If your bowel is not empty, your colonoscopy will not be successful and may have to be repeated. If you feel nauseated or vomit while taking the bowel preparation, wait 30 minutes before drinking more fluid and start with small sips of solution. Some activity (such as walking) or a few soda crackers may help decrease the nausea you are feeling. If the nausea persists, please contact nurse acquisition advisor at [phone]. You may experience skin irritation around the anus due to the passage of liquid stools. To prevent and treat skin irritation, you should: ?Apply Vaseline or Desitin ointment to the skin around the anus before drinking the bowel preparation medications. These products can be purchased at any drugstore. ?Wipe the skin after each bowel movement with disposable wet wipes instead of toilet paper. These are found in the toilet paper area of the store. ?Sit in a bathtub filled with warm water for 10 to 15 minutes after you finish passing a stool; after soaking, blot the skin dry with a soft cloth, apply Vaseline or Desitin ointment to the anal area, and place a cotton ball just outside your anus to absorb leaking fluid. What Happens During a Colonoscopy During a colonoscopy, an experienced physician uses a colonoscope (a long, flexible instrument about 1/2 inch in diameter) to view the lining of the colon. The colonoscope is inserted into the rectum and advanced through the large intestine. If necessary during a colonoscopy, small amounts of tissue can be removed for analysis (a biopsy) and polyps can be identified and entirely removed. In many cases, a colonoscopy allows accurate diagnosis and treatment of colorectal problems without the need for a major operation. Revised 03/2016 5 ?You are asked to wear a hospital gown and an IV will be started. ?You are given a pain reliever and a sedative intravenously (in your vein). You will feel relaxed and somewhat drowsy. ?You will lie on your left side, with your knees drawn up towards your chest. ?A small amount of air is used to expand the colon so the physician can see the colon costello. ?You may feel mild cramping during the procedure. Cramping can be reduced by taking slow, deep breaths. ?The colonoscope is slowly withdrawn while the lining of your bowel is carefully examined. ?The procedure lasts from 30 minutes to 1 hour. What Happens After a Colonoscopy ?You will stay in a recovery room for observation until you are ready for discharge. ?You may feel some cramping or a sensation of having gas, but this quickly passes. ?If sedation has been given, a responsible family member or friend must drive you home. ?Avoid alcohol, driving, and operating machinery for 24 hours following the procedure. ?Unless otherwise instructed, you may immediately return to your normal diet. We recommend you wait until the day after your procedure to resume normal activities. ?If polyps were removed or a biopsy was taken, the physician performing your colonoscopy will tell you when it is safe to resume taking your blood thinners. ?If a biopsy was taken or a polyp was removed, you may notice a little amount of rectal bleeding for 1 to 2 days after the procedure. If you have a large amount of rectal bleeding, high or persistent fevers, or severe abdominal pain within the next 2 weeks, please go to your local emergency room and call the physician who performed your exam. 6 Revised 03/2016 Copyright [id number] [facility]. All rights reserved. Revised 03/2016 documented in this encounter [facility] 03-22-2022 History of Presen t illness Narrative This note was created using Aradigmriter. 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 Robin Fernández is a 47 year old male here for above. He felt well. His diabetes mellitus and hypertension were not at, but close to goal. He was taking his medications except for Mounjaro. His only concern was a throat discomfort, needing throat clearing and voice change the past month or more. He was taking his pantoprazole, and he had similar issues in the past found to be from GERD by [facility]. Diabetes was not at goal and he did not start Mounjaro. Trulicity was not covered well by insurance. Review of Systems Constitutional: Negative for fatigue and fever. HENT: Positive for sore throat and voice change. Negative for postnasal drip and trouble swallowing. Eyes: Negative for visual disturbance. Respiratory: Negative for cough, shortness of breath and wheezing. Cardiovascular: Negative for chest pain and palpitations. Gastrointestinal: Positive for nausea. Negative for abdominal pain, diarrhea and vomiting. Genitourinary: Negative. Musculoskeletal: Negative. Neurological: Negative for dizziness, syncope and headaches. Psychiatric/Behavioral: Negative. ACTIVE PROBLEM LIST Non-Seasonal Allergic Rhinitis Essential Hypertension Gastroesophageal Reflux Disease Uncontrolled Type 2 Diabetes Mellitus With Hyperglycemia (Hcc) Other Microscopic Hematuria Anosmia Mixed Hyperlipidemia PAST MEDICAL HISTORY Diagnosis Date Anosmia 07/02/2020 COVID-19 02/08/2020 Essential hypertension 07/03/2020 Gastroesophageal reflux disease 12/22/2020 Hypertension 2010 Mixed hyperlipidemia 05/07/2021 Non-seasonal allergic rhinitis 04/06/2019 Uncontrolled type 2 diabetes mellitus with hyperglycemia (HCC) 12/22/2020 PAST SURGICAL HISTORY Procedure Laterality Date CARPAL TUNNEL Bilateral 2007 ROTATOR CUFF REPAIR Left 2019 Dr. Yancey VASECTOMY UNI/BI SPX W/POSTOP SEMEN EXAMS 2007 FAMILY HISTORY Problem Relation Age of Onset Hypertension Mother Blood Disease Mother leukemia Hypertension Father Coronary Artery Disease Father stented Ischemic Heart Disease Father CABG Arrythmias Brother Heart Brother 47 Valve replacement Diabetes Maternal Grandmother Coronary Artery Disease Maternal Grandmother Diabetes Maternal Grandfather Coronary Artery Disease Maternal Grandfather cabg Diabetes Paternal Grandfather Coronary Artery Disease Paternal Grandfather cabg Social History Tobacco Use Smoking status: Never Smokeless tobacco: Never Vaping Use Vaping Use: Never used Substance Use Topics Alcohol use: Yes Drug use: Never ALLERGIES Allergen Reactions Environmental [Seas* Unknown Current Outpatient Medications Medication Sig lisinopril (ZESTRIL, PRINIVIL) 10 mg tablet Take 1 tablet by mouth once daily. metFORMIN ER (GLUCOPHAGE XR) 500 mg 24 hr tablet Take 1 tablet by mouth twice daily before meals. amLODIPine (NORVASC) 10 mg tablet Take 1 tablet by mouth once daily. fluticasone (FLONASE) 50 mcg/actuation nasal spray Use 2 Sprays in each nostril once daily. Rinse mouth after use. blood sugar diagnostic (BLOOD GLUCOSE TEST) test strip Test blood sugar(s) 2 times daily. Dx: Type 2 DM - Uncontrolled E11.65 Insulin: No Lancets lancets Test blood sugar(s) 2 times daily. Dx: Type 2 DM - Uncontrolled E11.65 Insulin: No pantoprazole DR (PROTONIX) 20 mg tablet Take 1 tablet by mouth daily before breakfast. Take on empty stomach, 1/2 hr before meal. tirzepatide (MOUNJARO) 2.5 mg/0.5 mL pen injector Inject 2.5 mg subcutaneously one time a week. (Patient not taking: Reported on 03/22/2022) No current facility-administered medications for this visit. Objective BP 136/74 (BP Site: Left Arm, BP Position: Sitting, BP Cuff Size: Large Adult) Pulse 76 Temp 36.6 C (97.8 F) (Temporal) Resp 16 Ht 185.4 cm (6' 1) Wt 127 kg (280 lb) BMI 36.94 kg/m Physical Exam Constitutional: General: He is not in acute distress. Appearance: He is not ill-appearing. HENT: Head: Normocephalic. Nose: Nose normal. Mouth/Throat: Pharynx: Oropharynx is clear. No oropharyngeal exudate. Eyes: Extraocular Movements: Extraocular movements intact. Conjunctiva/sclera: Conjunctivae normal. Cardiovascular: Rate and Rhythm: Normal rate and regular rhythm. Heart sounds: No murmur heard. No gallop. Pulmonary: Effort: Pulmonary effort is normal. Breath sounds: Normal breath sounds. Abdominal: Palpations: Abdomen is soft. Tenderness: There is no abdominal tenderness. Hernia: No hernia is present. Musculoskeletal: General: No tenderness. Normal range of motion. Right lower leg: No edema. Left lower leg: No edema. Neurological: General: No focal deficit present. Mental Status: He is alert. Gait: Gait normal. Psychiatric: Mood and Affect: Mood normal. Feet:Shoes and socks removed, No deformities, ulcers, calluses, normal distal pulses, and sensitive to 10 gm monofilament Component Latest Ref Rng & Units 03/18/2022 Protein, Total 6.3 - 8.0 g/dL 7.2 Albumin 3.9 - 4.9 g/dL 4.5 Calcium 8.5 - 10.2 mg/dL 9.5 Bilirubin, Total 0.2 - 1.3 mg/dL 0.5 Alkaline Phosphatase 38 - 113 U/L 70 AST 14 - 40 U/L 14 ALT 10 - 54 U/L 16 Glucose 74 - 99 mg/dL 176 (H) BUN 9 - 24 mg/dL 23 Creatinine 0.73 - 1.22 mg/dL 1.17 Sodium 136 - 144 mmol/L 138 Potassium 3.7 - 5.1 mmol/L 4.3 Chloride 97 - 105 mmol/L 102 CO2 22 - 30 mmol/L 24 Anion Gap 9 - 18 mmol/L 12 eGFR >=60 mL/min/1.73m 78 Cholesterol, Total <200 mg/dL 195 Triglyceride <150 mg/dL 216 (H) HDL Cholesterol >39 mg/dL 29 (L) Non HDL Cholesterol <130 mg/dL 166 (H) Fasting Time hrs 13 VLDL Cholesterol <30 mg/dL 43 (H) TC:HDL Ratio <5.10 6.72 (H) LDL Cholesterol <100 mg/dL 123 (H) LDL:HDL Ratio <2.54 4.24 (H) Hemoglobin A1C 4.3 - 5.6 % 8.0 (H) Estimated Average Glucose mg/dL 183 Assessment and Plan 1. Physical exam for camp - ICD9: V70.3, ICD10: Z02.89 (primary diagnosis) - Form completed after the visit. - DEPRESSION SCREENING/ASSESSMENT 2. Gastroesophageal reflux disease, unspecified whether esophagitis present - ICD9: 530.81, ICD10: K21.9 Dose increased. - PANTOPRAZOLE 40 MG TABLET,DELAYED RELEASE 3. Special screening for malignant neoplasms, colon - ICD9: V76.51, ICD10: Z12.11 Patient indicated understanding and willingness to follow recommendations. - COLONOSCOPY SCREENING 4. Change in voice - ICD9: 784.49, ICD10: R49.9 Refer to [facility]. - CONSULT TO ENT 5. Throat pain - ICD9: 784.1, ICD10: R07.0 See above. - CONSULT TO ENT 6. Screening for colon cancer - ICD9: V76.51, ICD10: Z12.11 - PEG 3350 240 GRAM-ELECTROLYTES 22.72 GRAM-6.72 G-5.84 G POWDR FOR SOLN 7. Uncontrolled type 2 diabetes mellitus with hyperglycemia (HCC) - ICD9: 250.02, ICD10: E11.65 improved control - TIRZEPATIDE 2.5 MG/0.5 ML SUBCUTANEOUS PEN INJECTOR. Discussed medication dosage, usage, goals of therapy, and side effects. He will call if with formulary issues. - BASIC METABOLIC PNL - ALBUMIN/CREAT RATIO RND UR - HGB A1C Benji Amado MD [facility] OPEN ACCESS QUESTIONNAIRE 1. Are you currently having any new or unusual stomach/gastrointestinal issues at this time such as constipation, diarrhea, abdominal pain, rectal bleeding etc?No 2. Do you have any difficulty swallowing? No 3. Do you have any implanted devices such as a defibrillator, pacemaker, cardiac stents or deep brain stimulator? No 4. Do you take any Blood thinners such as Coumadin, Plavix, Xarelto, Eliquis, Brilinta or any other blood thinner? No 5. Do you have any new or past cardiac (heart) or pulmonary (lung) issues? No 6. Do you currently use any oxygen? No 7. Have you been hospitalized in the past 6 weeks? No 8. Have you had difficulty with anesthesia previously re: Difficult intubation? No Other difficulty or allergic reaction to anesthesia other than post op N/V? No 9. Are you on dialysis? No 10. Do you have any bleeding disorders such as hemophilia or Factor 5? No 11. Are you an Insulin Dependent Diabetic? No IF ANY OF THE TOP ELEVEN QUESTIONS ARE ANSWERED YES PLEASE SCHEDULE THE PATIENT FOR A CONSULT. advised 12. Is the patient's BMI 40 or greater? No:There is no height or weight on file to calculate BMI.. 13. Do you take any narcotics or anti-Anxiety medications? No 14. Do you use any illegal or recreational drugs including marijuana? No 15. Any alcohol use: YES: What type of alcohol, how much and how often do you drink? : beer/bourbon, 12 pack of beer of 1/5 bourbon once a month 16. Have you been diagnosed with chronic liver disease such as hepatitis or cirrhosis? No 17. Do you have a seizure disorder? No 18. Do you have ulcerative colitis or Crohn's disease? No 19. Are you or could you be ? No 20. Any other important health information we should be made aware of prior to your colonoscopy? No To be completed by LIP: Did patient have MAC anesthesia with a previous endoscopy procedure? No Patient appropriate for Open Access Colonoscopy: Yes: appropriate for Open Access Procedure Checklist: Prior to closing the encounter: Complete questionnaire: Yes Confirm Prep order has been Ordered/Pended: Yes. Patient's procedure could be delayed if not given the script for the prep. Please ensure the prep is escripted to pharmacy or printed. Instructions for the prep will print upon filing or pending this smartset. Please send all open access questionnaires to [facility] Pool #[id number] documented in this encounter [facility] 03-02-2022 Miscellaneous Notes Patient has been identified by name and date of : Yes Patient phones for refill(s): Requested Prescriptions Pending Prescriptions Disp Refills lisinopril (ZESTRIL, PRINIVIL) 10 mg tablet 30 tablet 2 Sig: Take 1 tablet by mouth once daily. Date of last office visit in primary care: 09/07/2021 6 month follow-up: 03/22/2022 Last 2 Encounter Wt Readings: Date: Wt: 09/07/2021 131.5 kg (290 lb) 05/07/2021 126.1 kg (278 lb) Previous labs/tests for medication: Blood Pressure: BUN (mg/dL) Date Value 09/01/2021 16 12/23/2020 16 Sodium (mmol/L) Date Value 09/01/2021 138 12/23/2020 137 Last 1 Encounter BP Readings: Date: BP: 09/07/2021 134/87 Please advise. Thank you. Leena Puri LPN documented in this encounter [facility] 01-15-2022 Miscellaneous Notes Patient is reporting elevated BP readings at home. He has not been seen by PCP since August and has not had a recent in office BP visit. He has recently resumed home BP medication (amlodipine) as of 12/17/21. Dr. Amado, Would you recommend patient come in sooner for nurse BP check before intensifying therapy or ok to add lisinopril 10 mg daily at this time based off home BP readings? Thanks, Med Garcia, MckaylaD, BCACP Primary Care Clinical Pharmacist Added medications back to Medication list as he has resumed taking. The following approved medication requests have been transmitted electronically. Requested Prescriptions Signed Prescriptions Disp Refills metFORMIN ER (GLUCOPHAGE XR) 500 mg 24 hr tablet 180 tablet 1 Sig: Take 1 tablet by mouth twice daily before meals. amLODIPine (NORVASC) 10 mg tablet 90 tablet 1 Sig: Take 1 tablet by mouth once daily. Med Garcia RPh documented in this encounter [facility] 12-28-2021 Miscellaneous Notes Called and spoke with patient. Patient is in agreement with starting Mounjaro weekly injection. Will pend to PCP for review/signature. Requested Prescriptions Pending Prescriptions Disp Refills tirzepatide (MOUNJARO) 2.5 mg/0.5 mL pen injector 2 mL 1 Sig: Inject 2.5 mg subcutaneously one time a week. Declines scheduling pharmacy phone visit, reports work hours limit availability and would prefer to reach out via [employer]. Asked patient to send Styky message 3 weeks after starting Mounjaro. Mckayla CrainD, BCACP Primary Care Clinical Pharmacist Called and Left voicemail for patient to return call to [phone] to schedule follow up pharmacy phone visit to discuss medication options. Med Garcia RPh Patient used to follow with pharmacy but was lost to follow up. Will outreach patient to offer follow up visit. He would benefit from starting Mounjaro weekly injection that has $25 coupon available. Med Garcia RPh Spoke to pt for DM update. States he has not been taking his metformin lately, but he recently began taking it again and also began exercising. States his diet has not been the greatest recently. He feels he would benefit from potentially adding a once weekly injection (as he did really well when he was on Trulicity), but this medication became very expensive and he was no longer able to afford it. This nurse encouraged him to come in to have his bloodwork checked (orders already placed) and we will contact him with the results. Dasia Guido RN documented in this encounter [facility] 09-07-2021 History of Presen t illness Narrative This note was created using [employer]igo. Subjective Robin Fernández is a 46 year old male. He did not continue to take amlodipine or metformin. He wanted to manage by lifestyle changes, although he acknowledged lifestyle changes needed were difficult to maintain. He felt well. Review of Systems Constitutional: Negative. Respiratory: Negative. Cardiovascular: Negative. Gastrointestinal: Negative. Endocrine: Negative. Neurological: Negative. ACTIVE PROBLEM LIST Non-Seasonal Allergic Rhinitis Essential Hypertension Gastroesophageal Reflux Disease Uncontrolled Type 2 Diabetes Mellitus With Hyperglycemia (Hcc) Other Microscopic Hematuria Anosmia Mixed Hyperlipidemia Current Outpatient Medications Medication Sig fluticasone (FLONASE) 50 mcg/actuation nasal spray Use 2 Sprays in each nostril once daily. Rinse mouth after use. blood sugar diagnostic (BLOOD GLUCOSE TEST) test strip Test blood sugar(s) 2 times daily. Dx: Type 2 DM - Uncontrolled E11.65 Insulin: No Lancets lancets Test blood sugar(s) 2 times daily. Dx: Type 2 DM - Uncontrolled E11.65 Insulin: No pantoprazole DR (PROTONIX) 20 mg tablet Take 1 tablet by mouth daily before breakfast. Take on empty stomach, 1/2 hr before meal. No current facility-administered medications for this visit. Objective BP 134/87 (BP Site: Left Arm, BP Position: Sitting, BP Cuff Size: Large Adult) Pulse 84 Temp 36.1 C (97 F) (Temporal Artery) Resp 18 Wt 131.5 kg (290 lb) Physical Exam Constitutional: General: He is not in acute distress. Cardiovascular: Rate and Rhythm: Normal rate and regular rhythm. Heart sounds: No murmur heard. No gallop. Pulmonary: Effort: Pulmonary effort is normal. Breath sounds: Normal breath sounds. Musculoskeletal: Right lower leg: No edema. Left lower leg: No edema. Neurological: Mental Status: He is alert. Component Latest Ref Rng & Units 09/01/2021 Glucose 74 - 99 mg/dL 171 (H) BUN 9 - 24 mg/dL 16 Creatinine 0.73 - 1.22 mg/dL 1.10 Sodium 136 - 144 mmol/L 138 Potassium 3.7 - 5.1 mmol/L 4.8 Chloride 97 - 105 mmol/L 101 CO2 22 - 30 mmol/L 24 Anion Gap 9 - 18 mmol/L 13 Calcium 8.5 - 10.2 mg/dL 9.8 eGFR >=60 mL/min/1.73m 85 Cholesterol, Total <200 mg/dL 195 Triglyceride <150 mg/dL 187 (H) HDL Cholesterol >39 mg/dL 30 (L) Non HDL Cholesterol <130 mg/dL 165 (H) Fasting Time hrs 12 VLDL Cholesterol <30 mg/dL 37 (H) TC:HDL Ratio <5.10 6.50 (H) LDL Cholesterol <100 mg/dL 128 (H) LDL:HDL Ratio <2.54 4.27 (H) Hemoglobin A1C 4.3 - 5.6 % 7.7 (H) Estimated Average Glucose mg/dL 174 Assessment and Plan 1. Essential hypertension - ICD9: 401.9, ICD10: I10 (primary diagnosis) - suboptimal control - Encouraged dietary sodium restriction/DASH diet - Recommended regular aerobic exercise. - Discussed need and benefit for weight loss. - Goal of BP <130/80 - Recommended no refined sugar, low refined starch, healthy oil intake (olive oil), healthy protein (fish) along the lines of the Mediterranean diet. 2. Mixed hyperlipidemia - ICD9: 272.2, ICD10: E78.2 - good control - Continue current medication. - Encouraged following a low carbohydrate, healthy oil intake diet. - LIPID PANEL BASIC 3. Uncontrolled type 2 diabetes mellitus with hyperglycemia (HCC) - ICD9: 250.02, ICD10: E11.65 worsening control - Discussed diabetic education issues of importance of annual examinations with Opthalmology with patient. - ALBUMIN/CREAT RATIO RND UR - COMP METABOLIC PANEL - HGB A1C We agreed to restart medications if goals are not being met at follow up in 6 months. Benji Amado MD documented in this encounter [facility] 05-19-2021 Miscellaneous Notes Attempted to call patient for today's scheduled pharmacy phone follow up. Not able to reach after several attempts. LVM for patient with instructions to return call to [phone] to re-schedule this visit. Also sending Styky message. Med Garcia PharmD Primary Care Clinical Pharmacist [facility] documented in this encounter [facility] Evaluation note Diagnosis Essential hypertension- Primary Unspecified essential hypertension Mixed hyperlipidemia Uncontrolled type 2 diabetes mellitus with hyperglycemia (HCC) [facility] Diagnosis Uncontrolled type 2 diabetes mellitus with hyperglycemia (HCC) Essential hypertension Unspecified essential hypertension [facility] Diagnosis Uncontrolled type 2 diabetes mellitus with hyperglycemia (HCC) Essential hypertension Unspecified essential hypertension [facility] Diagnosis Essential hypertension Unspecified essential hypertension [facility] Diagnosis Physical exam for [place]- Primary Other general medical examination for administrative purposes Gastroesophageal reflux disease, unspecified whether esophagitis present Special screening for malignant neoplasms, colon Change in voice Other voice and resonance disorders Throat pain Screening for colon cancer Special screening for malignant neoplasms, colon Uncontrolled type 2 diabetes mellitus with hyperglycemia (HCC) [facility] Diagnosis Uncontrolled type 2 diabetes mellitus with hyperglycemia (HCC) [facility] Diagnosis Hyperplastic polyp of sigmoid colon- Primary Hyperplastic rectal polyp Anal and rectal polyp [facility] Diagnosis Uncontrolled type 2 diabetes mellitus with hyperglycemia (HCC)- Primary Gastroesophageal reflux disease, unspecified whether esophagitis present Essential hypertension Unspecified essential hypertension Non-seasonal allergic rhinitis, unspecified trigger Need for vaccination Need for prophylactic vaccination and inoculation against unspecified single disease [facility] Diagnosis Uncontrolled type 2 diabetes mellitus with hyperglycemia (HCC) [facility] Diagnosis Uncontrolled type 2 diabetes mellitus with hyperglycemia (HCC)- Primary Essential hypertension Unspecified essential hypertension Mixed hyperlipidemia Chronic cough Cough Edema leg Edema Left elbow pain Pain in joint, upper arm Tendon cysts Ganglion of tendon sheath Fatigue, unspecified type Loss of libido Decreased libido [facility] Diagnosis Controlled type 2 diabetes mellitus with stage 1 chronic kidney disease, without long-term current use of insulin (HCC)- Primary Mixed hyperlipidemia Tendon cysts Ganglion of tendon sheath [facility] Diagnosis Essential hypertension Unspecified essential hypertension [facility] Diagnosis Depressive disorder- Primary Depressive disorder, not elsewhere classified Gastroesophageal reflux disease, unspecified whether esophagitis present Essential hypertension Unspecified essential hypertension Non-seasonal allergic rhinitis, unspecified trigger Mixed hyperlipidemia Controlled type 2 diabetes mellitus with stage 1 chronic kidney disease, without long-term current use of insulin (HCC) (HCC) Anosmia Disturbances of sensation of smell and taste Loss of libido Decreased libido [facility] Diagnosis Rib injury- Primary Sprain of ribs Rib injury Sprain of ribs [facility] Diagnosis Depressive disorder Depressive disorder, not elsewhere classified [facility] Diagnosis Depressive disorder- Primary Depressive disorder, not elsewhere classified Essential hypertension Unspecified essential hypertension Controlled type 2 diabetes mellitus with stage 1 chronic kidney disease, without long-term current use of insulin (HCC) (HCC) Mixed hyperlipidemia Anosmia Disturbances of sensation of smell and taste [facility] Diagnosis Uncontrolled type 2 diabetes mellitus with hyperglycemia (HCC) [facility] Diagnosis Sinobronchitis- Primary Unspecified sinusitis (chronic) [facility] Diagnosis Bronchitis with wheezing- Primary Acute non-recurrent sinusitis, unspecified location [facility]* Diagnosis Bronchitis with wheezing [facility]* Diagnosis Rib injury Sprain of ribs [facility]* Diagnosis SOB (shortness of breath) Shortness of breath Wheezing [facility]* Diagnosis Controlled type 2 diabetes mellitus with stage 2 chronic kidney disease, without long-term current use of insulin (HCC) (HCC)- Primary Essential hypertension Unspecified essential hypertension Chronic kidney disease, stage 2, mildly decreased GFR Chronic kidney disease, Stage II (mild) Mixed hyperlipidemia Bilateral leg edema Edema documented in this encounter [facility] note* Diagnosis Uncontrolled type 2 diabetes mellitus with hyperglycemia (HCC) Gastroesophageal reflux disease, unspecified whether esophagitis present documented in this encounter [facility] note* Diagnosis Controlled type 2 diabetes mellitus with stage 2 chronic kidney disease, without long-term current use of insulin (HCC) documented in this encounter [facility] note* Diagnosis Controlled type 2 diabetes mellitus with stage 2 chronic kidney disease, without long-term current use of insulin (HCC)- Primary Screening for depression Encounter for screening examination for other mental health and behavioral disorders Essential hypertension Unspecified essential hypertension Obesity, Class III, BMI >= 40 Morbid obesity Stasis dermatitis of both legs Varicose veins of lower extremities with inflammation documented in this encounter [facility] note* Diagnosis Controlled type 2 diabetes mellitus with stage 2 chronic kidney disease, without long-term current use of insulin (HCC)- Primary documented in this encounter [facility] note* Diagnosis Controlled type 2 diabetes mellitus with stage 2 chronic kidney disease, without long-term current use of insulin (HCC) documented in this encounter [facility] note* Diagnosis Acute kidney injury- Primary Acute kidney failure, unspecified Essential hypertension Unspecified essential hypertension Controlled type 2 diabetes mellitus with stage 2 chronic kidney disease, without long-term current use of insulin (HCC) Dehydration documented in this encounter [facility] note* Diagnosis Acute kidney injury- Primary Acute kidney failure, unspecified Uncontrolled type 2 diabetes mellitus with hyperglycemia (HCC) documented in this encounter [facility] for referral (narrative)* Diagnostic Procedure Only (Urgent) - Closed Specialty Diagnoses / Procedures Referred By Kevin t Referred To Contact XR IMAGING Diagnoses Rib injury Procedures XR RIBS/CHEST 3V AP RIB/OBLS/CXR LEFT RADEX RIBS UNI W/POSTEROANT CH MINIMUM 3 VIEWS Vani Freedman PA-C [address] [place] [address] [place] [address] Referral ID Status Reason Start Date Expiration Date V isits Requested Visits Authorized [id number] Closed Auto-Generate d Referral 07/06/2023 08/04/2024 1 1 [facility] for referral (narrative)* Diagnostic Procedure Only (Urgent) - Closed Specialty Diagnoses / Procedures Referred By Contac t Referred To Contact XR IMAGING Diagnoses Rib injury Procedures XR RIBS/CHEST 3V AP RIB/OBLS/CXR LEFT RADEX RIBS UNI W/POSTEROANT CH MINIMUM 3 VIEWS Vani Freedman PA-C [address] [place] [address] [place] [address] Referral ID Status Reason Start Date Expiration Date V isits Requested Visits Authorized [id number] Closed Auto-Generate d Referral 07/06/2023 08/04/2024 1 1 [facility] for visit Narrative* Diagnostic Procedure Only (Urgent) - Closed Specialty Diagnoses / Procedures Referred By Contac t Referred To Contact XR IMAGING Diagnoses Rib injury Procedures XR RIBS/CHEST 3V AP RIB/OBLS/CXR LEFT RADEX RIBS UNI W/POSTEROANT CH MINIMUM 3 VIEWS Vani Freedman PA-C [address] [place] [address] [place] [address] Referral ID Status Reason Start Date Expiration Date V isits Requested Visits Authorized [id number] Closed Auto-Generate d Referral 07/06/2023 08/04/2024 1 1 [facility] Summary Purpose Family History No Family History Records FoundNo Family History Records FoundNo Family History Records Found Advance Directives No Advanced Directives Records FoundNo Advanced Directives Records FoundNo Advanced Directives Records Found Reason for Referral Specialty Diagnoses / Procedures Referred By Contac t Referred To Contact Diagnoses Change in voice Throat pain Procedures CONSULT TO ENT Benji Amado MD [address] [place] [address] Referral ID Status Reason Start Date Expiration Date Visits Requested Visits Authorized [id number] Ref Not Required PCP Requested Referral 03/22/2022 03/22/2023 1 1 Specialty Diagnoses / Procedures Referred By Contac t Referred To Contact [facility] Diagnoses Special screening for malignant neoplasms, colon Procedures COLONOSCOPY SCREENING COLONOSCOPY FLX DX W/COLLJ SPEC WHEN PFRMD Benji Amado MD [address] [place] [address] [facility] [address] [place] [address] Referral ID Status Reason Start Date Expiration Date Visits Requested Visits Authorized [id number] Pending Review Auto-Generat ed Referral 03/22/2022 03/22/2023 1 1 Additional Source Comments (unrecognized sect ion and content) No Status Records FoundNo Status Records FoundNo Status Records Found INFORMATION SOURCE (unrecogn ized section and content) DATE CREATED AUTHOR 02/16/2020 [facility] DATE CREATED AUTHOR AUTHOR'S ORGANIZ ATION 10/09/2024 [facility] DATE CREATED AUTHOR AUTHOR'S ORGANIZ ATION 10/30/2024 [facility] Source Comments (unrecognize d section and content) In the event this informatio n is protected by the Federal Confidentiality of Alcohol and Drug Abuse Patient Records regulations: The Federal rules restrict any use of the information to criminally investigate or prosecute any alcohol or drug abuse patient.[facility] the event this information is protected by the Federal Confidentiality of Alcohol and Drug Abuse Patient Records regulations: The Federal rules restrict any use of the information to criminally investigate or prosecute any alcohol or drug abuse patient.[facility] the event this information is protected by the Federal Confidentiality of Alcohol and Drug Abuse Patient Records regulations: The Federal rules restrict any use of the information to criminally investigate or prosecute any alcohol or drug abuse patient.[facility] the event this information is protected by the Federal Confidentiality of Alcohol and Drug Abuse Patient Records regulations: The Federal rules restrict any use of the information to criminally investigate or prosecute any alcohol or drug abuse patient.[facility] the event this information is protected by the Federal Confidentiality of Alcohol and Drug Abuse Patient Records regulations: The Federal rules restrict any use of the information to criminally investigate or prosecute any alcohol or drug abuse patient.[facility] the event this information is protected by the Federal Confidentiality of Alcohol and Drug Abuse Patient Records regulations: The Federal rules restrict any use of the information to criminally investigate or prosecute any alcohol or drug abuse patient.[facility] the event this information is protected by the Federal Confidentiality of Alcohol and Drug Abuse Patient Records regulations: The Federal rules restrict any use of the information to criminally investigate or prosecute any alcohol or drug abuse patient.[facility] the event this information is protected by the Federal Confidentiality of Alcohol and Drug Abuse Patient Records regulations: The Federal rules restrict any use of the information to criminally investigate or prosecute any alcohol or drug abuse patient.[facility] the event this information is protected by the Federal Confidentiality of Alcohol and Drug Abuse Patient Records regulations: The Federal rules restrict any use of the information to criminally investigate or prosecute any alcohol or drug abuse patient.[facility] the event this information is protected by the Federal Confidentiality of Alcohol and Drug Abuse Patient Records regulations: The Federal rules restrict any use of the information to criminally investigate or prosecute any alcohol or drug abuse patient.[facility] the event this information is protected by the Federal Confidentiality of Alcohol and Drug Abuse Patient Records regulations: The Federal rules restrict any use of the information to criminally investigate or prosecute any alcohol or drug abuse patient.[facility] the event this information is protected by the Federal Confidentiality of Alcohol and Drug Abuse Patient Records regulations: The Federal rules restrict any use of the information to criminally investigate or prosecute any alcohol or drug abuse patient.[facility] the event this information is protected by the Federal Confidentiality of Alcohol and Drug Abuse Patient Records regulations: The Federal rules restrict any use of the information to criminally investigate or prosecute any alcohol or drug abuse patient.[facility] HospitalIn the event this information is protected by the Federal Confidentiality of Alcohol and Drug Abuse Patient Records regulations: The Federal rules restrict any use of the information to criminally investigate or prosecute any alcohol or drug abuse patient.[facility] HospitalIn the event this information is protected by the Federal Confidentiality of Alcohol and Drug Abuse Patient Records regulations: The Federal rules restrict any use of the information to criminally investigate or prosecute any alcohol or drug abuse patient.[facility] HospitalIn the event this information is protected by the Federal Confidentiality of Alcohol and Drug Abuse Patient Records regulations: The Federal rules restrict any use of the information to criminally investigate or prosecute any alcohol or drug abuse patient.[facility] HospitalIn the event this information is protected by the Federal Confidentiality of Alcohol and Drug Abuse Patient Records regulations: The Federal rules restrict any use of the information to criminally investigate or prosecute any alcohol or drug abuse patient.[facility] HospitalIn the event this information is protected by the Federal Confidentiality of Alcohol and Drug Abuse Patient Records regulations: The Federal rules restrict any use of the information to criminally investigate or prosecute any alcohol or drug abuse patient.[facility] HospitalIn the event this information is protected by the Federal Confidentiality of Alcohol and Drug Abuse Patient Records regulations: The Federal rules restrict any use of the information to criminally investigate or prosecute any alcohol or drug abuse patient.[facility] HospitalIn the event this information is protected by the Federal Confidentiality of Alcohol and Drug Abuse Patient Records regulations: The Federal rules restrict any use of the information to criminally investigate or prosecute any alcohol or drug abuse patient.[facility] HospitalIn the event this information is protected by the Federal Confidentiality of Alcohol and Drug Abuse Patient Records regulations: The Federal rules restrict any use of the information to criminally investigate or prosecute any alcohol or drug abuse patient.[facility] HospitalIn the event this information is protected by the Federal Confidentiality of Alcohol and Drug Abuse Patient Records regulations: The Federal rules restrict any use of the information to criminally investigate or prosecute any alcohol or drug abuse patient.[facility] HospitalIn the event this information is protected by the Federal Confidentiality of Alcohol and Drug Abuse Patient Records regulations: The Federal rules restrict any use of the information to criminally investigate or prosecute any alcohol or drug abuse patient.[facility] HospitalIn the event this information is protected by the Federal Confidentiality of Alcohol and Drug Abuse Patient Records regulations: The Federal rules restrict any use of the information to criminally investigate or prosecute any alcohol or drug abuse patient.[facility] HospitalIn the event this information is protected by the Federal Confidentiality of Alcohol and Drug Abuse Patient Records regulations: The Federal rules restrict any use of the information to criminally investigate or prosecute any alcohol or drug abuse patient.[facility] HospitalIn the event this information is protected by the Federal Confidentiality of Alcohol and Drug Abuse Patient Records regulations: The Federal rules restrict any use of the information to criminally investigate or prosecute any alcohol or drug abuse patient.[facility] HospitalIn the event this information is protected by the Federal Confidentiality of Alcohol and Drug Abuse Patient Records regulations: The Federal rules restrict any use of the information to criminally investigate or prosecute any alcohol or drug abuse patient.[facility] HospitalIn the event this information is protected by the Federal Confidentiality of Alcohol and Drug Abuse Patient Records regulations: The Federal rules restrict any use of the information to criminally investigate or prosecute any alcohol or drug abuse patient.[facility] HospitalIn the event this information is protected by the Federal Confidentiality of Alcohol and Drug Abuse Patient Records regulations: The Federal rules restrict any use of the information to criminally investigate or prosecute any alcohol or drug abuse patient.[facility] HospitalIn the event this information is protected by the Federal Confidentiality of Alcohol and Drug Abuse Patient Records regulations: The Federal rules restrict any use of the information to criminally investigate or prosecute any alcohol or drug abuse patient.[facility] HospitalIn the event this information is protected by the Federal Confidentiality of Alcohol and Drug Abuse Patient Records regulations: The Federal rules restrict any use of the information to criminally investigate or prosecute any alcohol or drug abuse patient.[facility] HospitalIn the event this information is protected by the Federal Confidentiality of Alcohol and Drug Abuse Patient Records regulations: The Federal rules restrict any use of the information to criminally investigate or prosecute any alcohol or drug abuse patient.[facility] HospitalIn the event this information is protected by the Federal Confidentiality of Alcohol and Drug Abuse Patient Records regulations: The Federal rules restrict any use of the information to criminally investigate or prosecute any alcohol or drug abuse patient.[facility] HospitalIn the event this information is protected by the Federal Confidentiality of Alcohol and Drug Abuse Patient Records regulations: The Federal rules restrict any use of the information to criminally investigate or prosecute any alcohol or drug abuse patient.[facility] HospitalIn the event this information is protected by the Federal Confidentiality of Alcohol and Drug Abuse Patient Records regulations: The Federal rules restrict any use of the information to criminally investigate or prosecute any alcohol or drug abuse patient.[facility] HospitalIn the event this information is protected by the Federal Confidentiality of Alcohol and Drug Abuse Patient Records regulations: The Federal rules restrict any use of the information to criminally investigate or prosecute any alcohol or drug abuse patient.[facility] HospitalIn the event this information is protected by the Federal Confidentiality of Alcohol and Drug Abuse Patient Records regulations: The Federal rules restrict any use of the information to criminally investigate or prosecute any alcohol or drug abuse patient.[facility] HospitalIn the event this information is protected by the Federal Confidentiality of Alcohol and Drug Abuse Patient Records regulations: The Federal rules restrict any use of the information to criminally investigate or prosecute any alcohol or drug abuse patient.[facility] HospitalIn the event this information is protected by the Federal Confidentiality of Alcohol and Drug Abuse Patient Records regulations: The Federal rules restrict any use of the information to criminally investigate or prosecute any alcohol or drug abuse patient.[facility] HospitalIn the event this information is protected by the Federal Confidentiality of Alcohol and Drug Abuse Patient Records regulations: The Federal rules restrict any use of the information to criminally investigate or prosecute any alcohol or drug abuse patient.[facility] HospitalIn the event this information is protected by the Federal Confidentiality of Alcohol and Drug Abuse Patient Records regulations: The Federal rules restrict any use of the information to criminally investigate or prosecute any alcohol or drug abuse patient.[facility] HospitalIn the event this information is protected by the Federal Confidentiality of Alcohol and Drug Abuse Patient Records regulations: The Federal rules restrict any use of the information to criminally investigate or prosecute any alcohol or drug abuse patient.[facility] Reason for Visit (unrecogniz ed section and content) Reason Comments Missed Appointment Reason Comments 4 month follow-up Reason Comments Med Change Request Reason Comments Patient Update Reason Onset Date Comments Refill Request 02/28/2022 Reason Comments 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 Reason Comments Forms Reason Comments Patient Update Medication Problem Reason Comments Follow Up Reason Comments F/U 3 Month Reason Comments Rx refill; not on current med list Reason Comments Medication Problem Reason Comments F/U 6 months Reason Comments Results Reason Comments Trauma Possible broken rib on left side x 1 week Reason Comments 6 week follow up Reason Onset Date Comments Refill Request 08/23/2023 Reason Comments Cough Chest congestion, si nus pain and pressure, VILLALOBOS x6 weeks Reason Onset Date Comments Refill Request 06/18/2024 Reason Comments F/U 6 months Reason Comments Medication Problem Reason Comments Hospital F/[facility] [place]: ARF (acute r enal failure) (CMS/[facility]) Acute renal failure Care Teams (unrecognized sec tion and content) Spring Encaser Relationship Specialty Start Date End Date Benji Amado MD [address] [place], [place] [address] PCP - General Internal Medicine 07/01/20 Med Garcia RPh [address], [place] [id number] Pharmacist Pharmacy 02/11/21 Spring Encaser Relationship Specialty Start Date End Date Benji Amado MD [address] [place] [address] PCP - General Internal Medicine 07/01/20 VasquezCecilio bobmerline, Formerly [facility] [address] [place] [address] Pharmacist Pharmacy 02/11/21 Spring Encaser Relationship Specialty Start Date End Date Benji Amado MD [address] [place] [address] PCP - General Internal Medicine 07/01/20 Med Garcia, Formerly [facility] [address] [place] [address] Pharmacist Pharmacy 02/11/21 Spring Encaser Relationship Specialty Start Date End Date Benji Amado MD [address] [place] [address] PCP - General Internal Medicine 07/01/20 VasquezCecilio bobmerline, Formerly [facility] [address] [place] [address] Pharmacist Pharmacy 02/11/21 Spring Encaser Relationship Specialty Start Date End Date Benji Amado MD [address] [place] [address] PCP - General Internal Medicine 07/01/20 Med Garcia, Formerly [facility] [address] [place] [address] Pharmacist Pharmacy 02/11/21 Spring Encaser Relationship Specialty Start Date End Date Benji Amado MD [address] [place] [address] PCP - General Internal Medicine 07/01/20 Med Garcia, Formerly [facility] [address] [place] [address] Pharmacist Pharmacy 02/11/21 Spring Encaser Relationship Specialty Start Date End Date Benji Amado MD [address] [place] [address] PCP - General Internal Medicine 07/01/20 Med Garcia, Formerly [facility] [address] [place] [address] Pharmacist Pharmacy 02/11/21 Spring Encaser Relationship Specialty Start Date End Date Benji Amado MD [address] [place] [address] PCP - General Internal Medicine 07/01/20 Med Garcia, Formerly [facility] [address] [place] [address] Pharmacist Pharmacy 02/11/21 Spring Encaser Relationship Specialty Start Date End Date Benji Amado MD [address] [place] [address] PCP - General Internal Medicine 07/01/20 Med Garcia, Formerly [facility] [address] [place] [address] Pharmacist Pharmacy 02/11/21 Spring Encaser Relationship Specialty Start Date End Date Benji Amado MD [address] [place] [address] PCP - General Internal Medicine 07/01/20 Med Garcia, Formerly [facility] [address] [place] [address] Pharmacist Pharmacy 02/11/21 Spring Encaser Relationship Specialty Start Date End Date Benji Amado MD [address] [place] [address] PCP - General Internal Medicine 07/01/20 Med Garcia, Formerly [facility] [address] [place] [address] Pharmacist Pharmacy 02/11/21 Spring Encaser Relationship Specialty Start Date End Date Benji Amado MD [address] [place] [address] PCP - General Internal Medicine 07/01/20 Med Garcia, Formerly [facility] [address] [place] [address] Pharmacist Pharmacy 02/11/21 Spring Encaser Relationship Specialty Start Date End Date Benji Amado MD [address] [place] [address] PCP - General Internal Medicine 07/01/20 [facility] [address] [place] [address] Pharmacist Pharmacy 02/11/21 Spring Encaser Relationship Specialty Start Date End Date Benji Amado MD [address] [place] [address] PCP - General Internal Medicine 07/01/20 Med Garcia, Formerly [facility] [address] [place] [address] Pharmacist Pharmacy 02/11/21 Spring Encaser Relationship Specialty Start Date End Date Benji Amado MD [address] [place] [address] PCP - General Internal Medicine 07/01/20 VasquezMed, Formerly [facility] [address] [place] [address] Pharmacist Pharmacy 02/11/21 Spring Encaser Relationship Specialty Start Date End Date Benji Amado MD [address] [facility] [address] PCP - General Internal Medicine 07/01/20 Mde Garcia Formerly [facility] [address] [place] [address] Pharmacist Pharmacy 02/11/21 Spring Encaser Relationship Specialty Start Date End Date Benji Amado MD [address] [place] [address] PCP - General Internal Medicine 07/01/20 Spring Encaser Relationship Specialty Start Date End Date Benji Amado MD [address] [place] [address] PCP - General Internal Medicine 07/01/20 Spring Encaser Relationship Specialty Start Date End Date Benji Amado MD [address] [place] [address] PCP - General Internal Medicine 07/01/20 Spring Encaser Relationship Specialty Start Date End Date Benji Amado MD [address] [place] [address] PCP - General Internal Medicine 07/01/20 Spring Encaser Relationship Specialty Start Date End Date Benji Amado MD [address] [place] [address] PCP - General Internal Medicine 07/01/20 Spring Encaser Relationship Specialty Start Date End Date Benji Amado MD [address] [place] [address] PCP - General Internal Medicine 07/01/20 Spring Encaser Relationship Specialty Start Date End Date Benji Amado MD [address] [place] [address] PCP - General Internal Medicine 07/01/20 Spring Encaser Relationship Specialty Start Date End Date Benji Amado MD [address] [place] [address] PCP - General Internal Medicine 07/01/20 Spring Encaser Relationship Specialty Start Date End Date Benji Amado MD [address] [place] [address] PCP - General Internal Medicine 07/01/20 Spring Encaser Relationship Specialty Start Date End Date Benji Amado MD [address] [place] [address] PCP - General Internal Medicine 07/01/20 Spring Encaser Relationship Specialty Start Date End Date Benji Amado MD [address] [place] [address] PCP - General Internal Medicine 07/01/20 Med Garcia [facility]ly [facility] [address] [place] [address] Pharmacist Pharmacy 02/11/21 05/25/23 Spring Encaser Relationship Specialty Start Date End Date Benji Amado MD [address] [place] [address] PCP - General Internal Medicine 07/01/20 Lawanda Guardado, 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 / 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 ORDER PICKER [address] [place] [address] Marketing Analytics Lead Internal Medicine 02/06/24 Spring Encaser Relationship Specialty Start Date End Date Benji Amado MD [address] [place] [address] PCP - General Internal Medicine 07/01/20 Lawanda Guardado, 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 / 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 ORDER PICKER [address] [place] [address] Marketing [employer] Lead Internal Medicine 02/06/24 Spring Encaser Relationship Specialty Start Date End Date Benji Amado MD [address] [place] [address] PCP - General Internal Medicine 07/01/20 Lawanda Guardado, 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 / 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 ORDER PICKER [address] [place] [address] Marketing [employer] Lead Internal Medicine 02/06/24 Spring Encaser Relationship Specialty Start Date End Date Benji Amado MD [address] [facility] [address] PCP - General Internal Medicine 07/01/20 Lawanda Guardado, 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 / 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 ORDER PICKER [address] [place] [address] Marketing Analytics Lead Internal Medicine 02/06/24 Spring Encaser Relationship Specialty Start Date End Date Benji Amado MD [address] [place] [address] PCP - General Internal Medicine 07/01/20 Lawanda Guardado, 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 / 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 ORDER PICKER [address] [facility] [address] Marketing [employer] Lead Internal Medicine 02/06/24 Spring Encaser Relationship Specialty Start Date End Date Benji Amado MD [address] [place] [address] PCP - General Internal Medicine 07/01/20 Lawanda Guardado, 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 / 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 ORDER PICKER [address] [place] [address] Marketing [employer] Lead Internal Medicine 02/06/24 Spring Encaser Relationship Specialty Start Date End Date Benji Amado MD [address] [place] [address] PCP - General Internal Medicine 07/01/20 Lawanda Guardado, 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 / 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 ORDER PICKER [address] [facility] [address] Marketing [employer] Lead Internal Medicine 02/06/24 Spring Encaser Relationship Specialty Start Date End Date Benji Amado MD [address] [place] [address] PCP - General Internal Medicine 07/01/20 Lawanda Guardado, 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 / 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 ORDER PICKER [address] [place] [address] Marketing [employer] Lead Internal Medicine 02/06/24 Spring Encaser Relationship Specialty Start Date End Date Benji Amado MD [address] [place] [address] PCP - General Internal Medicine 07/01/20 Lawanda Guardado, 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 / 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 ORDER PICKER [address] [place] [address] Marketing Analytics Lead Internal Medicine 02/06/24 Spring Encaser Relationship Specialty Start Date End Date Benji Amado MD [address] [place] [address] PCP - General Internal Medicine 07/01/20 Lawanda Guardado, 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 / 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 ORDER PICKER [address] [place] [address] Marketing [employer] Lead Internal Medicine 02/06/24 FOR RECORDS PERTAINING TO PATIENTS WHO ARE OR HAVE BEEN ENROLLED IN A CHEMICAL DEPENDENCY/SUBSTANCEABUSE PROGRAM, SOME INFORMATION MAY BE OMITTED. This clinical summary was aggregated from multiple sources. Caution should be exercised in using it in the provision of clinical care. This summary normalizes information from multiple sources, and as a consequence, information in this document may materially change the coding, format and clinical context of patient data. In addition, data may be omitted in some cases. CLINICAL DECISIONS SHOULD BE BASED ON THE PRIMARY CLINICAL RECORDS. [employer] provides no warranty or guarantee of the accuracy or completeness of information in this document.
[2024-10-30 01:22] LABS: Red Blood Cells-Urine > 100 SEEN /hpf (0-5); Squamous Epithelial Cells - UA 0-5 SEEN /hpf (0-5)
[2024-10-30 01:23] LABS: Uric Acid Crystals Ur 3+ /hpf (<or=1+)
[2024-10-30 02:23] VITALS: BP 156/97; PULSE 91; RESP 16; O2SAT 97
--- NOTE | 2024-10-30 02:50 | EX.ED.DYSGE1 ---
HPI History of Present Illness Chief Complaint: Flank Pain Informant: patient Narrative Narrative: Patient is a 49-year-old male with past medical history of hypertension. He also reports a recent diagnosis of kidney damage secondary to severe dehydration. He reports that he follows with his family doctor secondary to the recent kidney damage and continues to trend his numbers and states that they are typically right around 2. He states that he went to bed normally and then as he was trying to fall asleep suddenly developed sharp left-sided abdominal/flank pain. He states there is been no recent trauma or excessive activity. He denies any improvement or worsening of symptoms with position or motion. He states that the pain felt very similar to when he had his previous kidney problems and with this comes in for evaluation [facility] Medical History (Updated 10/30/24 @ 04:[address] Jaden Becker DO) Kidney failure High blood pressure Frequent headaches Home Medications ?Medication ?Instructions ?Recorded ?Last Taken ?Type cephalexin 500 mg capsule 500 mg PO TID 7 days #21 caps 10/30/24 Unknown Rx ketorolac 10 mg tablet 10 mg PO 4X/DAY PRN pain 5 days 10/30/24 Unknown Rx #20 tabs ondansetron 4 mg disintegrating 4 mg PO TID PRN nausea and 10/30/24 Unknown Rx tablet vomiting #21 tabs oxycodone-acetaminophen 5 mg-325 1 tab PO Q6H PRN pain 5 days #20 10/30/24 Unknown Rx mg tablet (Endocet) tabs tamsulosin 0.4 mg capsule (Flomax) 0.4 mg PO DAILY 14 days #14 caps 10/30/24 Unknown Rx Allergy/AdvReac Type Severity Reaction Status Date / Time No Known Allergies Allergy Verified 10/30/24 00:24 Family History Mother History of blood transfusion Brother Epilepsy Hypertension Seizures Grandfather Diabetes Heart disease Grandmother Diabetes Heart disease CVA (cerebral vascular accident) Surgical History History of repair of rotator cuff History of carpal tunnel release of both wrists History of vasectomy Social History (Updated 09/29/19 @ 12:[address] Ryan Han MD) Smoking Status: Never smoker alcohol intake: current substance use type: does not use additional social history: DOES TAKE IBUPROFEN NEEDED DOES NOT TAKE ASPIRIN ROS ROS ED Constitutional Constitutional ED: Denies chills or fever(s) ENT ENT ED: Denies sore throat Cardiovascular Cardiovascular: Denies chest pain Respiratory/Chest Respiratory/Chest: Denies cough or dyspnea Gastrointestinal Gastrointestinal: Reports abdominal pain; Denies diarrhea, nausea or vomiting Genitourinary Genitourinary ED: Denies dysuria Musculoskeletal Musculoskeletal: Reports back pain Integumentary Denies rash Neurologic Neurologic: Denies headache(s) Hematologic/Lymphatic Hematologic/Lymphatic: Denies easy bleeding or easy bruising EXAM Physical Exam Const Vital Signs: 10/30/24 00:24 10/30/24 02:23 10/30/24 03:02 Temperature 98.3 F 98.0 F Temperature Source Oral Pulse Rate 89 91 78 Respiratory Rate 18 16 18 Blood Pressure 185/107 H 156/97 H 146/50 H Blood Pressure Mean 133 116 82 Pulse Ox 100 97 98 Oxygen Delivery Method Room Air Room Air Positive well nourished, well developed and obese General Appearance ED: well developed; Negative for pallor Nutritional Appearance: obese HEENT HEENT Narrative: Normocephalic atraumatic Eyes PERRL and EOMs intact bilaterally General Eye ED: Negative for scleral icterus Neck supple Resp normal respiratory effort and clear to auscultation bilaterally Cardio regular rate and regular rhythm Rate: other Other Details: Radial and carotid pulses are equal and symmetric GI non-distended and no masses GI Narrative: Abdomen is soft and nondistended with normal active bowel sounds. There is pain with palpation along the left lateral midportion of the abdomen. No voluntary guarding or rigidity or pulsatile mass No overlying soft tissue skin changes to suggest trauma or infection Auscultation: normoactive bowel sounds Palpation: soft Back/Spine Back/Spine Narrative: Positive left CVA pain noted Extremity normal to inspection Neuro oriented x3, CN's II-XII intact bilaterally and no sensory deficits noted Sensorium / Orientation: alert Motor Exam: strength 5/5 throughout Psych mental status grossly normal Skin no rashes or lesions noted and no wounds General Skin Exam: Negative for jaundice or pallor MDM MDM MDM Narrative Medical decision making narrative: Patient arrived to the ER hypertensive but has a past medical history of this. With his report of sudden onset left-sided flank/abdominal pain there is concern for UTI versus pyelonephritis versus kidney stone versus colitis/diverticulitis. History and exam is most consistent with kidney stone therefore basic blood work with urine sample and a noncontrast CT were obtained. Patient's creatinine is elevated at 2 however he reports that this is near his baseline based on his previous history of kidney damage. Otherwise there is no leukocytosis or left shift or clinically significant Jessica abnormality. Urine does show +1 bacteria but there are no white blood cells present and the sample is nitrate negative therefore I feel this is normal brant and not a true UTI. CT scan confirmed a 6 x 3 mm stone lodged in the midportion of the left ureter. This correlates with his symptoms and physical exam. However after IV fluid and Toradol patient reports near resolution of his pain. Therefore this time as the patient is essentially pain-free he is not showing findings for urosepsis and even though his creatinine is elevated he is reporting this is near his baseline and therefore do not feel there is need for admission or emergent urology consultation. He will prescribe symptomatic medications and can follow-up with urology as an outpatient. Patient is agreeable to this plan of care and states he will return if his pain worsens or he develops a fever but otherwise will take the prescribed medication as directed and follow-up with urology for further treatment if needed History & Record Review Discussion w/independent historian: Patient Lab Data Attestation: I reviewed the patient's lab results. Labs: Laboratory Results - last 24 hr 10/30/24 10/30/24 00:33 00:52 WBC 8.4 RBC 3.87 L Hgb 11.6 L Hct 34.4 L MCV 88.9 MCH 30.0 MCHC 33.7 RDW Std Deviation 41.1 RDW Coeff of Magalys 12.7 Plt Count 276 MPV 11.3 Immature Gran % (Auto) 0.400 Neut % (Auto) 50.7 Lymph % (Auto) 38.0 Glades % (Auto) 7.2 Eos % (Auto) 3.0 Baso % (Auto) 0.7 Absolute Neuts (auto) 4.3 Absolute Lymphs (auto) 3.20 Nucleated RBC % 0 Sodium 141 Potassium 3.9 Chloride 106 Carbon Dioxide 21.3 Anion Gap 14 BUN 31 H Creatinine 2.00 H Estim Creat Clear Calc 65.19 Est GFR (MDRD) Non-Af 41 L BUN/Creatinine Ratio 15.3 Glucose 186 H Calcium 9.3 Urine Color Yellow Urine Clarity Cloudy Urine pH 6.0 Ur Specific [place] 1.020 Urine Protein 100 H Urine Glucose (UA) Normal Urine Ketones Negative Urine Occult Blood 250 H Urine Nitrite Negative Urine Bilirubin Negative Urine Urobilinogen Normal Ur Leukocyte Esterase 25 H Urine RBC > 100 SEEN Urine WBC 0-5 SEEN Ur Squamous Epith Cells 0-5 SEEN Uric Acid Crystals 3+ Urine Bacteria 1+ Urine Mucus 0 SEEN Radiography Diagnostic Testing: Clinical Impression(s) from Imaging Studies Abdomen/Pelvis CT 10/30/24 00:45 IMPRESSION: Left mid ureteric calculus with consequent mild proximal backpressure changes, perinephric and periureteric fat stranding & enlarged left kidney, possibly post acute obstructive versus inflammatory sequel. Reading Location: [place] [id number] Discharge Plan Triage Chief Complaint: Flank Pain ED Provider: Jaden Becker Dx/Rx/DC Orders Clinical Impression: Kidney stone, Renal colic, Hypertension, Renal insufficiency Instructions: ED Kidney Stone with Pain Prescriptions: New cephalexin 500 mg capsule 500 mg PO TID 7 Days Qty: 21 0RF ondansetron 4 mg tablet,disintegrating 4 mg PO TID PRN (Reason: nausea and vomiting) Qty: 21 0RF tamsulosin [Flomax] 0.4 mg capsule 0.4 mg PO DAILY 14 Days Qty: 14 0RF ketorolac 10 mg tablet 10 mg PO 4X/DAY PRN (Reason: pain) 5 Days Qty: 20 0RF oxycodone-acetaminophen [Endocet] 5-325 mg tablet 1 tab PO Q6H PRN (Reason: pain) 5 Days Qty: 20 0RF Primary Care Provider: Benji Suarez Referrals: Alex Berry MD [Med Staff - Active Staff] - Benji Suarez MD [Primary Care Provider] - Activity Restrictions/Additional Instructions: Please return to the ER if you develop a fever of 100.4 or higher or have intractable pain despite taking your medications. Otherwise keep yourself hydrated and follow-up with urology to discuss need for stent placement if you do not pass your kidney stone spontaneously Print Language: Vincentian Disposition Disposition: Home, Self Care Discharge Date/Time: 10/30/24 03:04
[2024-10-30 03:02] VITALS: BP 146/50; PULSE 78; RESP 18; TEMP 36.7; O2SAT 98
== END 2024-10-30 03:04 | disposition home or self-care (01) ==
PROVIDERS: Emergency Provider Emergency Medicine; PCP Internal Medicine; Visit Provider Emergency Medicine
DX: N20.2 Calculus of kidney with calculus of ureter (principal); I10 Essential (primary) hypertension; N19 Unspecified kidney failure
CPT/HCPCS: 74176; 80048; 81001; 85025; 96361; 96374; 99282; A4216